=== PATIENT | male | born 1960 | race African-American/Black ===

== ENCOUNTER 2020-07-25 16:51 | Inpatient (IN) | payer OTHER ==
[~2020-07-25] VITALS: Ht 180.3 cm; Wt 92.7 kg
--- NOTE | 2020-07-25 19:30 | NUR ---
NURSE NOTES: received report from STEFANO Palma. Patient was expected to arrive at 1830. Still not here. Will await patient's arrival.
--- NOTE | 2020-07-25 20:31 | NUR ---
NURSE NOTES: received pt from paramedics. pt is alert and oriented x4, ambulatory, in no acute distress, and with complaint of mild pain in the abdomen. Will get patient situated to room and environment and reconcile belongings.
--- NOTE | 2020-07-25 20:47 | NUR ---
NURSE NOTES: patient vital signs stable. belongings reconciled. patient with no acute s/s of distress. pt oriented to room and unit. bed in lowest position and call light in reach. will call Dr Zafar for admission orders.
--- NOTE | 2020-07-25 22:06 | Consultation ---
History of Present Illness General Date patient seen: Jul 25, 2020 Present Illness HPI This is a very pleasant 59-year-old male with no known prior medical history or surgical history that is otherwise healthy presents to [facility] after being transferred from [facility] because of insurance reasons. Patient states that approximately 5 to 6 days ago he was at home doing housework where he felt he may have strained himself and noted some abdominal discomfort generalized. He thought it was because he had exerted himself significantly. The next morning Tuesday morning he woke up had a small breakfast and associated nausea and nonbloody emesis. He decided not to go to work that day. [place] better the next day and went to work subsequently continued to have abdominal discomfort decreased appetite and had been eating less. [place] distended and very uncomfortable. Has not had a bowel movement in approximately 5 to 6 days. Pain persistent. Decided it was becoming too much and went to [place] for evaluation at which time identified to have a CT scan with bowel obstruction and fluid collections nonvisualization of the appendix considerations for small bowel obstruction versus perforated appendicitis with abscess collections. Surgery called to evaluate once we arrived at [facility]. Patient seen, patient evaluated, chart reviewed. Denies fever chills. Denies current nausea or vomiting. NG tube placed at [place] with minimal output since. Minimal flatus. On examination focal right lower quadrant tenderness and generalized discomfort. States prior abdominal pain cramping generalized 6 out of 10 currently improved with pain medication. Patient History History Provided By: Patient Healthcare decision maker Resuscitation status Advanced Directive on File Past Medical/Surgical History Past Medical/Surgical History: (1) Acute perforated appendicitis (2) Appendicitis with abscess (3) Small bowel obstruction Review of Systems Review of Symptoms General ROS: no weight loss or fever Psychological ROS: no depression or mood changes, no memory loss Ophthalmic ROS: no visual changes or eye irritation ENT ROS: no nasal congestion, hearing loss, dizziness Allergy and Immunology ROS: no allergic symptoms or urticaria Hematological and Lymphatic ROS: no swollen glands, unusual bleeding or bruising Endocrine ROS: no polyuria, polydipsia, weight changes, temperature intolerance Respiratory ROS: no cough, shortness of breath, or wheezing Cardiovascular ROS: no chest pain or dyspnea on exertion Gastrointestinal ROS: ++ abdominal pain, no bright red blood in stool. Musculoskeletal ROS: no myalgias or arthralgias Neurological ROS: no TIA or stroke symptoms Dermatological ROS: no new or changing skin lesions, rashes or pruritis Physical Exam Physical Exam General appearance: alert, cooperative, no distress, appears stated age Head: Normocephalic, without obvious abnormality, atraumatic Eyes: conjunctivae/corneas clear. PERRL, EOM's intact. Fundi benign Throat: Lips, mucosa, and tongue normal. Teeth and gums normal Neck: supple, symmetrical, trachea midline, no adenopathy, thyroid: not enlarged, symmetric, no tenderness/mass/nodules, no carotid bruit and no JVD Lungs: clear to auscultation bilaterally Heart: regular rate and rhythm, S1, S2 normal, no murmur, click, rub or gallop Abdomen: soft, focal right lower quadrant tenderness and generalized discomfort no groin hernias umbilicus distended. Bowel sounds normal. No masses, no organomegaly Extremities: extremities normal, atraumatic, no cyanosis or edema Pulses: 2+ and symmetric Skin: Skin color, texture, turgor normal. No rashes or lesions Neurologic: Grossly normal Assessment/Plan Problem List: (1) Small bowel obstruction ICD Codes: K56.609 - Unspecified intestinal obstruction, unspecified as to partial versus complete obstruction SNOMED: 695971373 (2) Appendicitis with abscess ICD Codes: K35.33 - Acute appendicitis with perforation and localized peritonitis, with abscess SNOMED: 36754095 (3) Acute perforated appendicitis Assessment & Plan: 59 male abdominal pain 6 days currently afebrile hemodynamic stable no leukocytosis mild elevated renal insufficiency. Distended no bowel function for a few days decreased appetite CT identified to sick centimeter fluid collections small 2 to 3 cm right lower quadrant fluid collection no appendix visualized stranding in the mesenteric root and the right lower quadrant on examination focal right lower quadrant tenderness. Clinical picture is consistent with likely acute perforated appendicitis with abscess formation. Ileus likely subsequent to inflammatory intra-abdominal process and unlikely obstructed Will need further work-up and care planning. Other etiologies include small bowel obstruction resulting fluid collection or translocation abscess formation. Potential intra-abdominal abscess formation. N.p.o. Okay for ice chips and sips of water for patient's comfort IV fluids IV antibiotics Continue NG tube for the meantime low intermittent suction Rx as written Activity as tolerated We will discussed with radiology for consideration of interventional IR drainage of abscess Discussed with patient extended length of stay likely 5 to 7 days potentially more if necessary. Thank you for let me participate in patient's care will follow with recommendations ICD Codes: K35.32 - Acute appendicitis with perforation and localized peritonitis, without abscess SNOMED: [id number] Waldemar Vitale Jul 25, 2020 22:06
[2020-07-25] MEDS ORDERED: Morphine Sulfate 4mg/ml Inj (IV USE ONLY) IVP PRN (22:15)
[2020-07-25] MEDS ORDERED: Acetaminophen 650 MG SUPP RECTAL PRN (22:15)
[2020-07-25] MEDS ORDERED: LORazepam Inj 2mg/ml 1ml IV PRN (22:15)
[2020-07-25] MEDS ORDERED: Morphine Sulfate 2mg/ml Inj(IV/IM USE ONLY) IVP PRN ×2 (22:15→23:00)
--- NOTE | 2020-07-25 22:33 | History & Physical ---
History and Physical History & Physicial Richard Zafar MD Jul 25, 2020 22:33
--- NOTE | 2020-07-25 23:30 | History and Physical Report ---
DATE OF ADMISSION: 07/25/2020 CHIEF COMPLAINT: Abdominal pain, distention. HISTORY OF PRESENT ILLNESS: This is a 59-year-old very delightful gentleman with past medical history significant for Sampson's palsy with tinnitus, who presented to the emergency room initially to [facility], complaining about abdominal pain associated with distention about six days ago. He stated that six days ago on Tuesday, he lifted up 20 foot extension ladder which required him using his abdominal core muscle. Next day, he felt totally fine but early Tuesday morning around 3 a.m., he started complaining about generalized abdominal pain associated with tenderness in the lower abdominal area, 7/10 in intensity, started having multiple emesis. Past two days, it got progressively worsening and was not able to tolerate oral intake. Denies any chest pain or shortness of breath. Denies any dizziness. Denies any fall or head trauma. Denies any bright red blood per rectum. He felt very bloated. Shortly after initial evaluation in the emergency department, the patient was found to have small bowel obstruction, confirmed on the CAT scan and subsequently the patient was transferred to [facility] for further evaluation and therapy. PAST MEDICAL HISTORY: Significant for Sampson's palsy. PAST SURGICAL HISTORY: None. ALLERGIES: No known drug allergies. MEDICATIONS: At home is none. SOCIAL HISTORY: The patient denies any smoking, alcohol, or drugs. FAMILY HISTORY: Noncontributory. REVIEW OF SYSTEMS: Mostly as above. Denies any dysuria, frequency, or hematuria. Denies any hemoptysis or hematochezia. Denies any bright red blood per rectum. Complained about constipation. No bowel movement. Complained about nonbloody, nonbiliary emesis. Complained about lower abdominal pain associated with the distention and bloating. PHYSICAL EXAMINATION: VITAL SIGNS: On admission from the ER, blood pressure 153/93, pulse of 52, respirations 16, and temperature 97.8. GENERAL: The patient is awake and responsive, in no acute distress. HEAD AND NECK: Pupils are equal and reactive to light. Extraocular movements are intact. Neck was supple. No JVD. NG tube in the nasal cavity was noted. LUNGS: Good air entry. No wheezes or rales. HEART: S1, S2. Regular rhythm. No gallops. ABDOMEN: Soft, distended. Decreased bowel sounds. Tenderness in the lower quadrant, right greater than left. No rebound tenderness. No fluid shift. EXTREMITIES: No cyanosis, clubbing, or edema. NEUROLOGIC: Cranial nerves II through XII grossly normal. Motor is 5/5 in all extremities. Gait was not assessed due to the patient's status. RECTAL/GENITOURINARY: Refused and deferred. PSYCHIATRIC: Mood and affect is intact. LABORATORY AND DIAGNOSTIC DATA: On admission from [place], WBC of 5.8, hemoglobin of 12, hematocrit 40, platelets 266,000. Sodium 134, potassium 4.1, chloride 91, bicarb 29, BUN 23, creatinine 1.62. GFR is 54. Glucose is 284. Total bilirubin is 0.2, alkaline phosphatase is 85, AST of 15, ALT of 16. Lipase is 26. CT of the abdomen and pelvis was noted to be multiple dilated loops of the small bowel consistent with small bowel obstruction with dilated loops in the mid abdomen. Fluid collection in the right lower quadrant measured approximately 2 x 1.8 x 2.7 cm, suspicious for abscess. Additional adjacent fluid collection suspected measured approximately 6.1 x 3.9 x 4.3 cm and possible adjacent collection. Appendix not clearly identified. Ruptured appendicitis not excluded. Atelectasis in the lung base, tiny small pleural effusion. ASSESSMENT: 1. Abdominal pain, most likely secondary to the perforated appendix appendicitis. 2. Small bowel obstruction. 3. Acute kidney injury. 4. Severe dehydration and prerenal azotemia. 5. Acute perforated appendicitis. 6. Appendicitis with abscess. PLAN: 1. Admit the patient to the surgical unit. 2. We will follow up with Dr. Vitale surgical consultation. 3. Code status is Full Code. 4. DVT prophylaxis is heparin subcutaneous. 5. Start the patient on broad spectrum antibiotic with Zosyn. 6. We follow up with the laboratory in the morning, chest x-ray, and KUB. 7. Discussed case with Dr. Vitale as well as Dr. Dandre Redman for surgical as well as gastroenterology consultation. Richard Zafar M.D. DR: CONNER JOB#: [id number] CC:
[2020-07-26] VITALS: BP 151/86
[2020-07-26] MEDS ORDERED: Piperacillin/Tazobactam 3.375 GM in NS 110 ML IVPB SCH ×2
[2020-07-26] MEDS: D5 1/2NS w/KCl 20mEq 1,000 ML IV SCH ×4 (00:19→23:43)
[2020-07-26] MEDS: Piperacillin/Tazobactam 3.375 GM in NS 110 ML IVPB SCH ×4 (00:46→23:43)
[2020-07-26 01:50] LABS: APPEARANCE,URINE CLEAR; BILIRUBIN, URINE NEGATIVE (NEGATIVE); GLUCOSE, URINE (UA) 2+ (NEGATIVE); KETONES,URINE 3+ (NEGATIVE); LEUKOCYTE ESTERASE ,URINE 1+ (NEGATIVE); NITRITE,URINE NEGATIVE (NEGATIVE); PH,URINE 5 (4.5-8.0); PROTEIN,URINE 3+ (NEGATIVE); UROBILINOGEN,URINE NORMAL MG/DL (0.0-1.0)
[2020-07-26 01:58] LABS: COLOR,URINE YELLOW
[2020-07-26 04:00] VITALS: BP 138/83
--- NOTE | 2020-07-26 04:20 | NUR ---
NURSE NOTES: vital signs stable. dark brown gastric contents observed from NG tube suction. patient does not report pain when in bed. experiences pain when lower right quadrant touched or pressure applied. patient currently not in any acute distress.
[2020-07-26 06:04] LABS: HEMATOCRIT 36.1 % (42.0-52.0); MEAN CORPUSCULAR VOLUME 93 FL (80-99); PLATELET COUNT 252 K/UL (150-450); RED CELL DISTRIBUTION WIDTH 12.9 % (11.6-14.8); WHITE BLOOD COUNT 4.9 K/UL (4.8-10.8)
[2020-07-26 06:41] LABS: PHOSPHORUS 3.5 MG/DL (2.5-4.9)
[2020-07-26 06:42] LABS: ALANINE AMINOTRANSFERASE 21 U/L (12-78); ALBUMIN 2.4 G/DL (3.4-5.0); ALBUMIN/GLOBULIN RATIO 0.6 (1.0-2.7); ALKALINE PHOSPHATASE 74 U/L (46-116); AMYLASE 75 U/L (25-115); ANION GAP 3 mmol/L (5-15); ASPARTATE AMINO TRANSFERASE 16 U/L (15-37); BILIRUBIN,TOTAL 0.3 MG/DL (0.2-1.0); BLOOD UREA NITROGEN 22 mg/dL (7-18); CALCIUM 9.4 MG/DL (8.5-10.1); CARBON DIOXIDE 33 MMOL/L (21-32); CHLORIDE 97 MMOL/L (98-107); CHOLESTEROL 98 MG/DL (< 200); CREATININE 1.7 MG/DL (0.55-1.30); HDL CHOLESTEROL 11 MG/DL (40-60); POTASSIUM 4.1 MMOL/L (3.5-5.1); SODIUM 133 MMOL/L (136-145); TRIGLYCERIDES 131 MG/DL (30-150)
--- NOTE | 2020-07-26 07:20 | NUR ---
NURSE NOTES: Handoff received from Daryl RN. Patient is awake and alert, no signs of distress, breathing is even and unlabored on room air. No reports of pain or nausea at this time. NG tube on right nares noted, dark brown output, connected to low int suction. Right AC 20 g is intact, running IVF as ordered. Bed is low and locked, side rails up x2, call light is within reach.
--- NOTE | 2020-07-26 07:35 | NUR ---
NURSE HAND-OFF: Important Events on Shift: new admit, pain management, NG tube to low intermediate suction Patient Status: stable Diet: NPO Pending Orders: NA Pending Results/Labs:NA Pending MD notification:NA Latest Vital Signs: Temperature 98.7 , Pulse 93 , B/P 138 /83 , Respiratory Rate 15 , O2 SAT 95 , , O2 Flow Rate . Vital Sign Comment: stable throughout shift Latest Burgess Fall Score: 20 Fall Risk: Low Risk Safety Measures: Call light Within Reach, Bed Alarm , Side Rails Side Rails x2, Bed position Low and Locked. Fall Precautions: Patient Fall Education Report given to STEFANO Wagner.
[2020-07-26 08:00] VITALS: BP 131/73
--- NOTE | 2020-07-26 09:44 | NUR ---
NURSE NOTES: Called and left a message for Dr. Zafar regarding patient's abnormal EKG.
[2020-07-26] MEDS: Heparin 5000 units/ml inj SUBQ SCH ×2 (10:22→21:47)
[2020-07-26 12:00] VITALS: BP 147/80
--- NOTE | 2020-07-26 12:11 | General Progress Note ---
Subjective Allergies: Coded Allergies: No Known Allergies (Unverified , 07/25/20) Objective Last 24 Hour Vital Signs Date Time Temp Pulse Resp B/P (MAP) Pulse Ox O2 Delivery O2 Flow Rate FiO2 07/26/20 08:00 98.1 94 17 131/73 (92) 95 07/26/20 04:00 98.7 93 15 138/83 (101) 95 07/26/20 00:00 98.9 100 18 151/86 (107) 95 07/25/20 23:16 Room Air Intake and Output 07/25/20 07/26/20 19:00 07:00 Output Total 1075 ml Balance -1075 ml Output Urine Total 675 ml Gastric Drainage Total 400 ml # Voids 2 Laboratory Tests 07/26/20 01:34: Urine Color Yellow, Urine Appearance Clear, Urine pH 5, Urine Specific [place] 1.020, Urine Protein 3+H, Urine Glucose (UA) 2+H, Urine Ketones 3+H, Urine Blood 4+H, Urine Nitrite Negative, Urine Bilirubin Negative, Urine Urobilinogen Normal, Urine Leukocyte Esterase 1+H, Urine RBC 15-20H, Urine WBC 0-2, Urine Squamous Epithelial Cells Occasional, Urine Bacteria ModerateH, Urine Yeast OccasionalH 07/26/20 05:15: White Blood Count 4.9, Red Blood Count 3.90L, Hemoglobin 12.0L, Hematocrit 36.1L , Mean Corpuscular Volume 93, Mean Corpuscular Hemoglobin 30.7, Mean Corpuscular Hemoglobin Concent 33.2, Red Cell Distribution Width 12.9, Platelet Count 252, Mean Platelet Volume 6.0L, Neutrophils (%) (Auto) , Lymphocytes (%) (Auto) , Monocytes (%) (Auto) , Eosinophils (%) (Auto) , Basophils (%) (Auto) , Differential Total Cells Counted 100, Neutrophils % (Manual) 69, Lymphocytes % (Manual) 15L, Monocytes % (Manual) 15H, Eosinophils % (Manual) 1, Basophils % (Manual) 0, Band Neutrophils 0, Platelet Estimate Adequate, Platelet Morphology Normal, Red Blood Cell Morphology Normal, Erythrocyte Sedimentation Rate 78H, Prothrombin Time 10.7, Prothromb Time International Ratio 1.0, Activated Partial Thromboplast Time 27, Sodium Level 133L, Potassium Level 4.1, Chloride Level 97L , Carbon Dioxide Level 33H, Anion Gap 3L, Blood Urea Nitrogen 22H, Creatinine 1.7H, Estimat Glomerular Filtration Rate 50.7, Glucose Level 310H, Hemoglobin A1c 8.9H, Lactic Acid Level 1.40, Calcium Level 9.4, Phosphorus Level 3.5, Magnesium Level 1.8, Total Bilirubin 0.3, Aspartate Amino Transf (AST/SGOT) 16, Alanine Aminotransferase (ALT/SGPT) 21, Alkaline Phosphatase 74, C-Reactive Protein, Quantitative 40.3H, Pro-B-Type Natriuretic Peptide 456H, Total Protein 6.5, Albumin 2.4L, Globulin 4.1, Albumin/Globulin Ratio 0.6L, Triglycerides Level 131, Cholesterol Level 98, LDL Cholesterol 38, HDL Cholesterol 11L, Cholesterol/HDL Ratio 8.9H, Amylase Level 75, Lipase 162 Height (Feet): 5 Height (Inches): 11.00 Weight (Pounds): 201 Assessment/Plan Assessment/Plan: Assessment - Perforated appy - multiple abd abscesses - Ileus - Azotemia - DM Recommendations - broad spectrum abx - agree with Zosyn - NPO - IVF, follow Cr and lytes - NGT - SQ heparin - follow KUB - surgical f/u Thank you Dandre Girard MD Jul 26, 2020 12:11
--- NOTE | 2020-07-26 13:01 | Surgery Progress Note ---
Surgery Progress Note Subjective Additional Comments no acute events comfortable stable labs noted exam unchanged ng minimal output Objective Last 24 Hour Vital Signs Date Time Temp Pulse Resp B/P (MAP) Pulse Ox O2 Delivery O2 Flow Rate FiO2 07/26/20 08:00 98.1 94 17 131/73 (92) 95 07/26/20 04:00 98.7 93 15 138/83 (101) 95 07/26/20 00:00 98.9 100 18 151/86 (107) 95 07/25/20 23:16 Room Air I&O Intake and Output 07/25/20 07/26/20 19:00 07:00 Output Total 1075 ml Balance -1075 ml Output Urine Total 675 ml Gastric Drainage Total 400 ml # Voids 2 Cardiovascular: RSR Respiratory: decreased breath sounds Abdomen: soft, non-tender, present bowel sounds Extremities: no tenderness, no cyanosis Laboratory Tests Test 07/26/20 01:34 07/26/20 05:15 Urine Color Yellow Urine Appearance Clear Urine pH 5 (4.5-8.0) Urine Specific [place] 1.020 (1.005-1.035) Urine Protein 3+ (NEGATIVE) H Urine Glucose (UA) 2+ (NEGATIVE) H Urine Ketones 3+ (NEGATIVE) H Urine Blood 4+ (NEGATIVE) H Urine Nitrite Negative (NEGATIVE) Urine Bilirubin Negative (NEGATIVE) Urine Urobilinogen Normal MG/DL (0.0-1.0) Urine Leukocyte Esterase 1+ (NEGATIVE) H Urine RBC 15-20 /HPF (0 - 0) H Urine WBC 0-2 /HPF (0 - 0) Urine Squamous Epithelial Cells Occasional /LPF Urine Bacteria Moderate /HPF (NONE) H Urine Yeast Occasional /HPF (NONE) H White Blood Count 4.9 K/UL (4.8-10.8) Red Blood Count 3.90 M/UL (4.70-6.10) L Hemoglobin 12.0 G/DL (14.2-18.0) L Hematocrit 36.1 % (42.0-52.0) L Mean Corpuscular Volume 93 FL (80-99) Mean Corpuscular Hemoglobin 30.7 PG (27.0-31.0) Mean Corpuscular Hemoglobin Concent 33.2 G/DL (32.0-36.0) Red Cell Distribution Width 12.9 % (11.6-14.8) Platelet Count 252 K/UL (150-450) Mean Platelet Volume 6.0 FL (6.5-10.1) L Neutrophils (%) (Auto) % (45.0-75.0) Lymphocytes (%) (Auto) % (20.0-45.0) Monocytes (%) (Auto) % (1.0-10.0) Eosinophils (%) (Auto) % (0.0-3.0) Basophils (%) (Auto) % (0.0-2.0) Differential Total Cells Counted 100 Neutrophils % (Manual) 69 % (45-75) Lymphocytes % (Manual) 15 % (20-45) L Monocytes % (Manual) 15 % (1-10) H Eosinophils % (Manual) 1 % (0-3) Basophils % (Manual) 0 % (0-2) Band Neutrophils 0 % (0-8) Platelet Estimate Adequate Platelet Morphology Normal Red Blood Cell Morphology Normal Erythrocyte Sedimentation Rate 78 MM/HR (0-20) H Prothrombin Time 10.7 SEC (9.30-11.50) Prothromb Time International Ratio 1.0 (0.9-1.1) Activated Partial Thromboplast Time 27 SEC (23-33) Sodium Level 133 MMOL/L (136-145) L Potassium Level 4.1 MMOL/L (3.5-5.1) Chloride Level 97 MMOL/L (98-107) L Carbon Dioxide Level 33 MMOL/L (21-32) H Anion Gap 3 mmol/L (5-15) L Blood Urea Nitrogen 22 mg/dL (7-18) H Creatinine 1.7 MG/DL (0.55-1.30) H Estimat Glomerular Filtration Rate 50.7 mL/min (>60) Glucose Level 310 MG/DL (74-106) H Hemoglobin A1c 8.9 % (4.3-6.0) H Lactic Acid Level 1.40 mmol/L (0.4-2.0) Calcium Level 9.4 MG/DL (8.5-10.1) Phosphorus Level 3.5 MG/DL (2.5-4.9) Magnesium Level 1.8 MG/DL (1.8-2.4) Total Bilirubin 0.3 MG/DL (0.2-1.0) Aspartate Amino Transf (AST/SGOT) 16 U/L (15-37) Alanine Aminotransferase (ALT/SGPT) 21 U/L (12-78) Alkaline Phosphatase 74 U/L (46-116) C-Reactive Protein, Quantitative 40.3 mg/dL (0.00-0.90) H Pro-B-Type Natriuretic Peptide 456 pg/mL (0-125) H Total Protein 6.5 G/DL (6.4-8.2) Albumin 2.4 G/DL (3.4-5.0) L Globulin 4.1 g/dL Albumin/Globulin Ratio 0.6 (1.0-2.7) L Triglycerides Level 131 MG/DL (30-150) Cholesterol Level 98 MG/DL (< 200) LDL Cholesterol 38 mg/dL (<100) HDL Cholesterol 11 MG/DL (40-60) L Cholesterol/HDL Ratio 8.9 (3.3-4.4) H Amylase Level 75 U/L (25-115) Lipase 162 U/L (73-393) Plan Problems: (1) Small bowel obstruction (2) Appendicitis with abscess (3) Acute perforated appendicitis Assessment & Plan: 59 male abdominal pain 6 days currently afebrile hemodynamic stable no leukocytosis mild elevated renal insufficiency. Distended no bowel function for a few days decreased appetite CT identified to sick centimeter fluid collections small 2 to 3 cm right lower quadrant fluid collection no appendix visualized stranding in the mesenteric root and the right lower quadrant on examination focal right lower quadrant tenderness. Clinical picture is consistent with likely acute perforated appendicitis with abscess formation. Ileus likely subsequent to inflammatory intra-abdominal process and unlikely obstructed Will need further work-up and care planning. Other etiologies include small bowel obstruction resulting fluid collection or translocation abscess formation. Potential intra-abdominal abscess formation. N.p.o. Okay for ice chips and sips of water for patient's comfort IV fluids IV antibiotics Continue NG tube for the meantime low intermittent suction Rx as written Activity as tolerated We will discussed with radiology for consideration of interventional IR drainage of abscess Discussed with patient extended length of stay likely 5 to 7 days potentially more if necessary. Thank you for let me participate in patient's care will follow with recommendations Waldemar Vitale Jul 26, 2020 13:01
--- NOTE | 2020-07-26 13:35 | NUR ---
CASE MANAGEMENT:INITIAL REVIEW 59 YR OLD MALE TRANSFERRED FROM [employer] D/T INSURANCE CC;ABD PAIN SI;[place]. DEHYDRATION. SMALL BOWEL OBSTRUCTION. AC PERFORATED APPENDICITIS. 98.9 100 18 151/86 95% ON RA H/H 12.0/36.1 NA 133 CO2 33 BUN 22 CR 1.7 BG 310 CRP 40.3 BNP 456 ALB 2.4 UA+ PROTEIN, GLUCOSE, KETONES, BLOOD, LEUKOCYTE ESTERASE, BACTERIA, YEAST IS;MORPHINE IV ZOFRAN IV ZOSYN IV ADMITTED TO MED SURG MED SURG STATUS
[2020-07-26 16:00] VITALS: BP 139/77
[2020-07-26] MEDS ORDERED: Tubing IV Secondary IV ONE (17:28)
[2020-07-26] MEDS ORDERED: NS 275ml ONE (17:28)
[2020-07-26] MEDS: NovoLOG Insulin Flexpen SUBQ SCH ×2 (17:53→23:43)
--- NOTE | 2020-07-26 18:01 | Internal Med Progress Note ---
Subjective Date of Service: Jul 26, 2020 Physician Name Edson Ramirez Attending Physician Richard Zafar MD Current Medications Medications (Trade) Dose Ordered Sig/Chloe Route PRN Reason Start Time Stop Time Status Last Admin Dose Admin Acetaminophen (Tylenol) 650 mg Q4H PRN RECTAL Temp >100.5 07/25/20 22:15 08/24/20 22:14 Acetaminophen (Tylenol) 650 mg Q6H PRN ORAL for fever and mild pain 1-3 07/25/20 23:00 08/24/20 22:59 Bisacodyl (Dulcolax) 10 mg HSPRN PRN RECTAL Constipation 07/25/20 22:15 10/23/20 22:14 Dextrose (Dextrose 50%) 25 ml Q30M PRN IV Hypoglycemia 07/26/20 14:30 10/24/20 14:29 Dextrose (Dextrose 50%) 25 ml Q30M PRN IV Hypoglycemia 07/25/20 22:15 10/23/20 22:14 Dextrose (Dextrose 50%) 50 ml Q30M PRN IV Hypoglycemia 07/26/20 14:30 10/24/20 14:29 Dextrose (Dextrose 50%) 50 ml Q30M PRN IV Hypoglycemia 07/25/20 22:15 10/23/20 22:14 Dextrose/ Electrolytes 1,000 ml @ 125 mls/hr Q8H IV 07/26/20 00:00 08/25/20 00:00 07/26/20 15:33 Famotidine (Pepcid I.v.) 20 mg Q12HR IVP 07/26/20 09:00 08/25/20 08:59 07/26/20 08:13 Heparin Sodium (Porcine) (Heparin 5000 units/ml) 5,000 units EVERY 12 HOURS SUBQ 07/26/20 09:30 09/09/20 09:29 07/26/20 10:22 Insulin Aspart (NovoLOG) EVERY 6 HOURS SUBQ 07/26/20 18:00 10/24/20 17:59 07/26/20 17:53 Lorazepam (Ativan 2mg/ml 1ml) 0.5 mg Q4H PRN IV For Anxiety 07/25/20 22:15 08/01/20 22:14 Morphine Sulfate (Morphine Sulfate) 2 mg Q4H PRN IVP moderate to severe pain 4-10 07/25/20 23:00 08/01/20 22:59 Morphine Sulfate (Morphine Sulfate) 4 mg Q4H PRN IVP Severe Pain (Pain Scale 7-10) 07/25/20 22:15 08/01/20 22:14 07/26/20 17:40 Ondansetron HCl (Zofran) 4 mg Q4H PRN IVP Nausea & Vomiting 07/25/20 23:00 08/24/20 22:59 Piperacillin Sod/ Tazobactam Sod 3.375 gm/Sodium Chloride 110 ml @ 27.5 mls/hr Q8H IVPB 07/26/20 00:00 08/02/20 00:00 07/26/20 15:34 Allergies: Coded Allergies: No Known Allergies (Unverified , 07/25/20) ROS Limited/Unobtainable: No Constitutional: Reports: no symptoms HEENT: Reports: no symptoms Cardiovascular: Reports: no symptoms Respiratory: Reports: no symptoms Gastrointestinal/Abdominal: Reports: abdomen distended, abdominal pain Genitourinary: Reports: no symptoms Neurologic/Psychiatric: Reports: no symptoms Subjective 59 YO M admitted with nausea, vomiting, abdominal distention and pain. Now small bowel obstruction. Cover for Int Jeffrey-DR Zafar Objective Last Vital Signs Date Time Temp Pulse Resp B/P (MAP) Pulse Ox O2 Delivery O2 Flow Rate FiO2 07/26/20 12:00 98.6 94 18 147/80 (102) 98 07/26/20 09:00 Room Air Laboratory Tests Test 07/26/20 01:34 07/26/20 05:15 07/26/20 17:48 Urine Color Yellow Urine Appearance Clear Urine pH 5 (4.5-8.0) Urine Specific [place] 1.020 (1.005-1.035) Urine Protein 3+ (NEGATIVE) H Urine Glucose (UA) 2+ (NEGATIVE) H Urine Ketones 3+ (NEGATIVE) H Urine Blood 4+ (NEGATIVE) H Urine Nitrite Negative (NEGATIVE) Urine Bilirubin Negative (NEGATIVE) Urine Urobilinogen Normal MG/DL (0.0-1.0) Urine Leukocyte Esterase 1+ (NEGATIVE) H Urine RBC 15-20 /HPF (0 - 0) H Urine WBC 0-2 /HPF (0 - 0) Urine Squamous Epithelial Cells Occasional /LPF Urine Bacteria Moderate /HPF (NONE) H Urine Yeast Occasional /HPF (NONE) H White Blood Count 4.9 K/UL (4.8-10.8) Red Blood Count 3.90 M/UL (4.70-6.10) L Hemoglobin 12.0 G/DL (14.2-18.0) L Hematocrit 36.1 % (42.0-52.0) L Mean Corpuscular Volume 93 FL (80-99) Mean Corpuscular Hemoglobin 30.7 PG (27.0-31.0) Mean Corpuscular Hemoglobin Concent 33.2 G/DL (32.0-36.0) Red Cell Distribution Width 12.9 % (11.6-14.8) Platelet Count 252 K/UL (150-450) Mean Platelet Volume 6.0 FL (6.5-10.1) L Neutrophils (%) (Auto) % (45.0-75.0) Lymphocytes (%) (Auto) % (20.0-45.0) Monocytes (%) (Auto) % (1.0-10.0) Eosinophils (%) (Auto) % (0.0-3.0) Basophils (%) (Auto) % (0.0-2.0) Differential Total Cells Counted 100 Neutrophils % (Manual) 69 % (45-75) Lymphocytes % (Manual) 15 % (20-45) L Monocytes % (Manual) 15 % (1-10) H Eosinophils % (Manual) 1 % (0-3) Basophils % (Manual) 0 % (0-2) Band Neutrophils 0 % (0-8) Platelet Estimate Adequate Platelet Morphology Normal Red Blood Cell Morphology Normal Erythrocyte Sedimentation Rate 78 MM/HR (0-20) H Prothrombin Time 10.7 SEC (9.30-11.50) Prothromb Time International Ratio 1.0 (0.9-1.1) Activated Partial Thromboplast Time 27 SEC (23-33) Sodium Level 133 MMOL/L (136-145) L Potassium Level 4.1 MMOL/L (3.5-5.1) Chloride Level 97 MMOL/L (98-107) L Carbon Dioxide Level 33 MMOL/L (21-32) H Anion Gap 3 mmol/L (5-15) L Blood Urea Nitrogen 22 mg/dL (7-18) H Creatinine 1.7 MG/DL (0.55-1.30) H Estimat Glomerular Filtration Rate 50.7 mL/min (>60) Glucose Level 310 MG/DL (74-106) H Hemoglobin A1c 8.9 % (4.3-6.0) H Lactic Acid Level 1.40 mmol/L (0.4-2.0) Calcium Level 9.4 MG/DL (8.5-10.1) Phosphorus Level 3.5 MG/DL (2.5-4.9) Magnesium Level 1.8 MG/DL (1.8-2.4) Total Bilirubin 0.3 MG/DL (0.2-1.0) Aspartate Amino Transf (AST/SGOT) 16 U/L (15-37) Alanine Aminotransferase (ALT/SGPT) 21 U/L (12-78) Alkaline Phosphatase 74 U/L (46-116) C-Reactive Protein, Quantitative 40.3 mg/dL (0.00-0.90) H Pro-B-Type Natriuretic Peptide 456 pg/mL (0-125) H Total Protein 6.5 G/DL (6.4-8.2) Albumin 2.4 G/DL (3.4-5.0) L Globulin 4.1 g/dL Albumin/Globulin Ratio 0.6 (1.0-2.7) L Triglycerides Level 131 MG/DL (30-150) Cholesterol Level 98 MG/DL (< 200) LDL Cholesterol 38 mg/dL (<100) HDL Cholesterol 11 MG/DL (40-60) L Cholesterol/HDL Ratio 8.9 (3.3-4.4) H Amylase Level 75 U/L (25-115) Lipase 162 U/L (73-393) POC Whole Blood Glucose 302 MG/DL (74-106) H Intake and Output 07/25/20 07/26/20 19:00 07:00 Output Total 1075 ml Balance -1075 ml Output Urine Total 675 ml Gastric Drainage Total 400 ml # Voids 2 Objective PHYSICAL EXAMINATION: GENERAL: The patient is awake and responsive, in no acute distress. HEAD AND NECK: Pupils are equal and reactive to light. Extraocular movements are intact. Neck was supple. No JVD. NG tube in the nasal cavity was noted. LUNGS: Good air entry. No wheezes or rales. HEART: S1, S2. Regular rhythm. No gallops. ABDOMEN: Soft, distended. Decreased bowel sounds. Tenderness in the lower quadrant, right greater than left. No rebound tenderness. No fluid shift. EXTREMITIES: No cyanosis, clubbing, or edema. NEUROLOGIC: Cranial nerves II through XII grossly normal. Motor is 5/5 in all extremities. Gait was not assessed due to the patient's status. RECTAL/GENITOURINARY: Refused and deferred. PSYCHIATRIC: Mood and affect is intact. Assessment/Plan Assessment/Plan ASSESSMENT: 1. Abdominal pain, most likely secondary to the perforated appendix appendicitis. 2. Small bowel obstruction. 3. Acute kidney injury. 4. Severe dehydration and prerenal azotemia. 5. Acute perforated appendicitis. 6. Appendicitis with abscess. PLAN: 1. Admit the patient to the surgical unit. 2. Dr. Vitale = surgical consultation. 3. Code status is Full Code. 4. DVT prophylaxis is heparin subcutaneous. 5. antibiotic = Zosyn. 6. Dr. Dandre Redman=gastroenterology consultation. Edson Ramirez MD Jul 26, 2020 18:01
--- NOTE | 2020-07-26 19:30 | NUR ---
NURSE HAND-OFF: Important Events on Shift:[started q6 accuchecks and insulin. 2d echo] Patient Status: [stable] Diet: NPO Pending Orders: Pending Results/Labs: Pending MD notification: Latest Vital Signs: Temperature 98.6 , Pulse 90 , B/P 139 /77 , Respiratory Rate 18 , O2 SAT 99 , Room Air, O2 Flow Rate . Vital Sign Comment: Latest Burgess Fall Score: 20 Fall Risk: Low Risk Safety Measures: Call light Within Reach, Bed Alarm Zone 1, Side Rails Side Rails x2, Bed position Low and Locked. Fall Precautions: Patient Fall Education Report given to Joan RN.
--- NOTE | 2020-07-26 19:30 | NUR ---
NURSE NOTES: Receive a report from STEFANO Wagner. Round is done. Pt is awake and alert. No acute distress noted. Pain relived. On NG tube on right nare @ 60cm inserted with low intermittent suction in greenish drainage. Fixing tape for NG-tube. No nausea noted. Noted abdominal distended and hyperactivity on BS but pt says that it got decreased than before. On NPO with fluid hydration. Call light within reach. Will continue to monitor.
[2020-07-26 20:00] VITALS: BP 143/78
--- NOTE | 2020-07-26 20:45 | Consultation ---
DATE OF CONSULTATION: 07/26/2020 GASTROLOGY CONSULTATION CHIEF COMPLAINT: I was asked to see this patient by Dr. Richard Zafar for evaluation of abdominal pain and appendicitis. HISTORY OF PRESENT ILLNESS: The patient is a 59-year-old man who was in his usual state of health until about 3 to 4 days prior to admission when he started noticing abdominal pain, which progressively worsened. He also had some bouts of nausea and vomiting. He came to an outside emergency room where a CT scan showed an abscess at 3 different locations in the lower abdomen. The largest one was measuring about 6 cm. There was also evidence of bowel obstruction vs ileus. The patient was, therefore, transferred to [facility], where he was admitted. He has a nasogastric tube for decompression. His main complaint is diffuse abdominal pain, which is worse in the lower abdomen. PAST MEDICAL HISTORY: Notable for history of Sampson palsy. FAMILY HISTORY: Positive for diabetes. SOCIAL HISTORY: The patient does not smoke or drink alcohol. The patient is single. 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 REVIEW OF SYSTEMS: Otherwise negative. PHYSICAL EXAMINATION: GENERAL: A well-developed, well-nourished man, in his room. HEENT: Normocephalic and atraumatic. NECK: Supple. CHEST: Clear to auscultation. CARDIOVASCULAR: Exam revealed a regular rate. ABDOMEN: Distended and tender to palpation, especially in the right lower quadrant with some guarding, but no rebound. EXTREMITIES: No edema. LABORATORY DATA: Noted. Imaging studies from the outside facility were noted. ASSESSMENT: This patient presents with acute abdominal pain with abdominal distention and abscess formation. This is typical for perforated appendicitis, and I agree with the surgeon's assessment that the distended small bowel is likely ileus and not a true bowel obstruction. Nonetheless, bowel rest and nasogastric tube will be worthwhile and I will defer surgical management to the surgical processor. Broad-spectrum antibiotic such as Zosyn will be appropriate. Deep vein thrombosis prophylaxis should be given. The patient's abdominal exam should be followed closely. RECOMMENDATIONS: Per above discussion and per orders written in the chart. Thank you for asking me to participate in the care of this patient. Dandre Redman M.D. DR: DIANDRA JOB#: [id number] CC: YENY
[2020-07-27] VITALS: BP 148/85
[2020-07-27 04:00] VITALS: BP 143/82
[2020-07-27] MEDS: NovoLOG Insulin Flexpen SUBQ SCH ×3 (06:11→17:48)
--- NOTE | 2020-07-27 07:20 | NUR ---
NURSE HAND-OFF: Important Events on Shift: RLQ pain-given morphine 2mg IVS one time. No nausea. On NGT with greenish drainage. Patient Status: stable Diet: npo except ice chips 12hr NG-tube drainage: 150ml greenish Pending Orders: [] Pending Results/Labs:[] Pending MD notification:[] Latest Vital Signs: Temperature 99.5 , Pulse 90 , B/P 143 /82 , Respiratory Rate 18 , O2 SAT 97 , Room Air, O2 Flow Rate . Vital Sign Comment: [] Latest Burgess Fall Score: 35 Fall Risk: Medium Risk Safety Measures: Call light Within Reach, Bed Alarm Zone 1, Side Rails Side Rails x2, Bed position Low and Locked. Fall Precautions: Door Sign Patient Fall Education Report given to STEFANO Palma. Round is done. pt is awake and alert. No acute distress noted. Pt says passing gas several times but no BM. Will continue to monitor.
[2020-07-27 07:21] LABS: BASOPHILS % (AUTO) 0.9 % (0.0-2.0); EOSINOPHILS % (AUTO) 2.5 % (0.0-3.0); HEMATOCRIT 37.2 % (42.0-52.0); HEMOGLOBIN 12.2 G/DL (14.2-18.0); LYMPHOCYTES % (AUTO) 10.1 % (20.0-45.0); MEAN CORPUSCULAR VOLUME 93 FL (80-99); MONOCYTES % (AUTO) 18.3 % (1.0-10.0); NEUTROPHILS % (AUTO) 68.2 % (45.0-75.0); PLATELET COUNT 281 K/UL (150-450); RED BLOOD COUNT 3.99 M/UL (4.70-6.10); RED CELL DISTRIBUTION WIDTH 13.2 % (11.6-14.8); WHITE BLOOD COUNT 7.3 K/UL (4.8-10.8)
[2020-07-27 07:33] LABS: CALCIUM 8.8 MG/DL (8.5-10.1); CREATININE 1.6 MG/DL (0.55-1.30); POTASSIUM 4.8 MMOL/L (3.5-5.1)
--- NOTE | 2020-07-27 07:50 | NUR ---
NURSE NOTES: Patient is in bed awake and able to verbalize needs. Stable. Denies pain or SOB. NGT to low intermittent suction as ordered. Patient stated that he is passing gas and feels better. Patient instructed to use call light for assistance, verbalized understanding. Patient is in bed in locked and lowest position with call light within reach. All needs met at this time. Will continue to monitor.
[2020-07-27 08:00] VITALS: BP 139/68
[2020-07-27] MEDS: Piperacillin/Tazobactam 3.375 GM in NS 110 ML IVPB SCH ×2 (08:07→16:15)
[2020-07-27] MEDS: D5 1/2NS w/KCl 20mEq 1,000 ML IV SCH (08:07)
[2020-07-27] MEDS: Heparin 5000 units/ml inj SUBQ SCH ×2 (08:12→20:34)
[2020-07-27] MEDS ORDERED: LISINOPRIL40 MG ORAL (10:09)
[2020-07-27] MEDS ORDERED: AMLODIPINE BESY10 MG ORAL (10:09)
[2020-07-27] MEDS ORDERED: TRESIBA FL100 UNIT/1 SQ (11:29)
[2020-07-27 12:00] VITALS: BP 133/87
--- NOTE | 2020-07-27 12:36 | Surgery Progress Note ---
Surgery Progress Note Subjective Symptoms: improved, voiding well, passing flatus, BM, pain decreased Objective Last 24 Hour Vital Signs Date Time Temp Pulse Resp B/P (MAP) Pulse Ox O2 Delivery O2 Flow Rate FiO2 07/27/20 09:00 Room Air 07/27/20 08:00 98.2 87 18 139/68 (91) 97 07/27/20 04:00 99.5 90 18 143/82 (102) 97 07/27/20 00:00 99.5 93 18 148/85 (106) 96 07/26/20 21:00 Room Air 07/26/20 20:00 99.1 88 18 143/78 (99) 94 07/26/20 18:10 98.6 07/26/20 16:00 98.4 90 18 139/77 (97) 99 I&O Intake and Output 07/26/20 07/27/20 19:00 07:00 Intake Total 1500 ml Output Total 800 ml 1000 ml Balance -800 ml 500 ml Intake IV Total 1500 ml Output Urine Total 600 ml 850 ml Gastric Drainage Total 200 ml 150 ml # Voids 3 3 # Bowel Movements 1 Cardiovascular: RSR Respiratory: clear Abdomen: soft, distended, non-tender - decreased, present bowel sounds Extremities: no edema, no tenderness, no cyanosis Laboratory Tests Test 07/26/20 17:48 07/26/20 23:39 07/27/20 05:15 07/27/20 05:21 POC Whole Blood Glucose 302 MG/DL (74-106) H 268 MG/DL (74-106) H 310 MG/DL (74-106) H White Blood Count 7.3 K/UL (4.8-10.8) Red Blood Count 3.99 M/UL (4.70-6.10) L Hemoglobin 12.2 G/DL (14.2-18.0) L Hematocrit 37.2 % (42.0-52.0) L Mean Corpuscular Volume 93 FL (80-99) Mean Corpuscular Hemoglobin 30.6 PG (27.0-31.0) Mean Corpuscular Hemoglobin Concent 32.8 G/DL (32.0-36.0) Red Cell Distribution Width 13.2 % (11.6-14.8) Platelet Count 281 K/UL (150-450) Mean Platelet Volume 5.2 FL (6.5-10.1) L Neutrophils (%) (Auto) 68.2 % (45.0-75.0) Lymphocytes (%) (Auto) 10.1 % (20.0-45.0) L Monocytes (%) (Auto) 18.3 % (1.0-10.0) H Eosinophils (%) (Auto) 2.5 % (0.0-3.0) Basophils (%) (Auto) 0.9 % (0.0-2.0) Sodium Level 134 MMOL/L (136-145) L Potassium Level 4.8 MMOL/L (3.5-5.1) Chloride Level 100 MMOL/L (98-107) Carbon Dioxide Level 29 MMOL/L (21-32) Anion Gap 5 mmol/L (5-15) Blood Urea Nitrogen 14 mg/dL (7-18) Creatinine 1.6 MG/DL (0.55-1.30) H Estimat Glomerular Filtration Rate 54.3 mL/min (>60) Glucose Level 304 MG/DL (74-106) H Calcium Level 8.8 MG/DL (8.5-10.1) Test 07/27/20 12:05 POC Whole Blood Glucose Pending Plan Problems: (1) Small bowel obstruction (2) Appendicitis with abscess (3) Acute perforated appendicitis Assessment & Plan: 59 male abdominal pain 6 days currently afebrile hemodynamic stable no leukocytosis mild elevated renal insufficiency. Distended no bowel function for a few days decreased appetite CT identified to sick centimeter fluid collections small 2 to 3 cm right lower quadrant fluid collection no appendix visualized stranding in the mesenteric root and the right lower quadrant on examination focal right lower quadrant tenderness. Clinical picture is consistent with likely acute perforated appendicitis with abscess formation. Ileus likely subsequent to inflammatory intra-abdominal process and unlikely obstructed Will need further work-up and care planning. Other etiologies include small bowel obstruction resulting fluid collection or translocation abscess formation. Potential intra-abdominal abscess formation. N.p.o. Okay for ice chips and sips of water for patient's comfort IV fluids IV antibiotics Continue NG tube for the meantime low intermittent suction Rx as written Activity as tolerated We will discussed with radiology for consideration of interventional IR drainage of abscess Discussed with patient extended length of stay likely 5 to 7 days potentially more if necessary. Thank you for let me participate in patient's care will follow with recommendations improving +bowel function ng output decreased abd exam improved labs noted Waldemar Vitale Jul 27, 2020 12:36
--- NOTE | 2020-07-27 13:15 | Consultation ---
Consult Note Consult Note Asked to evaluate at the request of Dr. Zafar for elevated serum creatinine Day 2 of hospitalization here at [facility] Patient interviewed and examined in room 302. Discussed with STEFANO Palma. HISTORY OF PRESENT ILLNESS: This is a 59-year-old past medical history significant for Sampson's palsy with tinnitus, who presented to the emergency room initially to [facility], complaining about abdominal pain associated with distention about six days ago. He stated that six days ago on Tuesday, he lifted up 20 foot extension ladder which required him using his abdominal core muscle. Next day, he felt totally fine but early Tuesday morning around 3 a.m., he started complaining about generalized abdominal pain associated with tenderness in the lower abdominal area, 7/10 in intensity, started having multiple emesis. Past two days, it got progressively worsening and was not able to tolerate oral intake. Denies any chest pain or shortness of breath. Denies any dizziness. Denies any fall or head trauma. Denies any bright red blood per rectum. He felt very bloated. Shortly after initial evaluation in the emergency department, the patient was found to have small bowel obstruction, confirmed on the CAT scan and subsequently the patient was transferred to [facility] for further evaluation and therapy. PHYSICAL EXAMINATION: VITAL SIGNS: On admission from the ER, blood pressure 153/93, pulse of 52, respirations 16, and temperature 97.8. GENERAL: The patient is awake and responsive, in no acute distress. HEAD AND NECK: Pupils are equal and reactive to light. Extraocular movements are intact. Neck was supple. No JVD. NG tube in the nasal cavity was noted. LUNGS: Good air entry. No wheezes or rales. HEART: S1, S2. Regular rhythm. No gallops. ABDOMEN: Soft, distended. Decreased bowel sounds. Tenderness in the lower quadrant, right greater than left. No rebound tenderness. No fluid shift. EXTREMITIES: No cyanosis, clubbing, or edema. NEUROLOGIC: Cranial nerves II through XII grossly normal. Motor is 5/5 in all extremities. Gait was not assessed due to the patient's status. RECTAL/GENITOURINARY: Refused and deferred. PSYCHIATRIC: Mood and affect is intact. LABORATORY AND DIAGNOSTIC DATA: On admission from [facility], WBC of 5.8, hemoglobin of 12, hematocrit 40, platelets 266,000. Sodium 134, potassium 4.1, chloride 91, bicarb 29, BUN 23, creatinine 1.62. GFR is 54. Glucose is 284. Total bilirubin is 0.2, alkaline phosphatase is 85, AST of 15, ALT of 16. Lipase is 26. CT of the abdomen and pelvis was noted to be multiple dilated loops of the small bowel consistent with small bowel obstruction with dilated loops in the mid abdomen. Fluid collection in the right lower quadrant measured approximately 2 x 1.8 x 2.7 cm, suspicious for abscess. Additional adjacent fluid collection suspected measured approximately 6.1 x 3.9 x 4.3 cm and possible adjacent collection. Appendix not clearly identified. Ruptured appendicitis not excluded. Atelectasis in the lung base, tiny small pleural effusion. . Assessment/Plan Impression: Renal failure with serum creatinine of 1.7 on admission today 1.6 GI pathology: Acute perforated appendicitis, appendicitis with abscess Possible small bowel obstruction Diabetes mellitus Hyponatremia Sugg: N.p.o. NG tube to suction Avoid nephrotoxic's, monitor renal parameters and electrolytes Okay for ice chips and sips of water for patient's comfort IV fluids, change IV to isotonic solution IV antibiotics Rico Patel MD Jul 27, 2020 13:15
[2020-07-27] MEDS: D5NS 1,000 ML IV SCH (14:17)
[2020-07-27 16:00] VITALS: BP_SYST 113; BP_SYST 140; BP_DIAS 68; BP_DIAS 84
--- NOTE | 2020-07-27 16:35 | Internal Med Progress Note ---
Subjective Date of Service: Jul 27, 2020 Physician Name Edson Ramirez Attending Physician Richard Zafar MD Current Medications Medications (Trade) Dose Ordered Sig/Chloe Route PRN Reason Start Time Stop Time Status Last Admin Dose Admin Acetaminophen (Tylenol) 650 mg Q4H PRN RECTAL TEMP and pain 07/25/20 22:15 08/24/20 22:14 07/27/20 12:07 Acetaminophen (Tylenol) 650 mg Q6H PRN ORAL for fever and mild pain 1-3 07/25/20 23:00 08/24/20 22:59 Bisacodyl (Dulcolax) 10 mg HSPRN PRN RECTAL Constipation 07/25/20 22:15 10/23/20 22:14 Dextrose (Dextrose 50%) 25 ml Q30M PRN IV Hypoglycemia 07/26/20 14:30 10/24/20 14:29 Dextrose (Dextrose 50%) 50 ml Q30M PRN IV Hypoglycemia 07/26/20 14:30 10/24/20 14:29 Dextrose/Sodium Chloride 1,000 ml @ 100 mls/hr Q10H IV 07/27/20 13:30 08/26/20 13:29 07/27/20 14:17 Famotidine (Pepcid I.v.) 20 mg Q12HR IVP 07/26/20 09:00 08/25/20 08:59 07/27/20 08:07 Heparin Sodium (Porcine) (Heparin 5000 units/ml) 5,000 units EVERY 12 HOURS SUBQ 07/26/20 09:30 09/09/20 09:29 07/27/20 08:12 Insulin Aspart (NovoLOG) EVERY 6 HOURS SUBQ 07/26/20 18:00 10/24/20 17:59 07/27/20 12:09 Lorazepam (Ativan 2mg/ml 1ml) 0.5 mg Q4H PRN IV For Anxiety 07/25/20 22:15 08/01/20 22:14 Morphine Sulfate (Morphine Sulfate) 2 mg Q4H PRN IVP moderate to severe pain 4-10 07/25/20 23:00 08/01/20 22:59 07/27/20 04:08 Morphine Sulfate (Morphine Sulfate) 4 mg Q4H PRN IVP Severe Pain (Pain Scale 7-10) 07/25/20 22:15 08/01/20 22:14 07/26/20 17:40 Ondansetron HCl (Zofran) 4 mg Q4H PRN IVP Nausea & Vomiting 07/25/20 23:00 08/24/20 22:59 Piperacillin Sod/ Tazobactam Sod 3.375 gm/Sodium Chloride 110 ml @ 27.5 mls/hr Q8H IVPB 07/26/20 00:00 08/02/20 00:00 07/27/20 16:15 Allergies: Coded Allergies: No Known Allergies (Unverified , 07/25/20) ROS Limited/Unobtainable: No Constitutional: Reports: no symptoms HEENT: Reports: no symptoms Cardiovascular: Reports: no symptoms Respiratory: Reports: no symptoms Gastrointestinal/Abdominal: Reports: no symptoms Genitourinary: Reports: no symptoms Neurologic/Psychiatric: Reports: no symptoms Subjective 59 YO M admitted with nausea, vomiting, abdominal distention and pain. Now small bowel obstruction. Cover for Int Med-DR Zafar Objective Last Vital Signs Date Time Temp Pulse Resp B/P (MAP) Pulse Ox O2 Delivery O2 Flow Rate FiO2 07/27/20 12:00 97.8 94 18 133/87 (102) 97 07/27/20 09:00 Room Air Laboratory Tests Test 07/26/20 17:48 07/26/20 23:39 07/27/20 05:15 07/27/20 05:21 POC Whole Blood Glucose 302 MG/DL (74-106) H 268 MG/DL (74-106) H 310 MG/DL (74-106) H White Blood Count 7.3 K/UL (4.8-10.8) Red Blood Count 3.99 M/UL (4.70-6.10) L Hemoglobin 12.2 G/DL (14.2-18.0) L Hematocrit 37.2 % (42.0-52.0) L Mean Corpuscular Volume 93 FL (80-99) Mean Corpuscular Hemoglobin 30.6 PG (27.0-31.0) Mean Corpuscular Hemoglobin Concent 32.8 G/DL (32.0-36.0) Red Cell Distribution Width 13.2 % (11.6-14.8) Platelet Count 281 K/UL (150-450) Mean Platelet Volume 5.2 FL (6.5-10.1) L Neutrophils (%) (Auto) 68.2 % (45.0-75.0) Lymphocytes (%) (Auto) 10.1 % (20.0-45.0) L Monocytes (%) (Auto) 18.3 % (1.0-10.0) H Eosinophils (%) (Auto) 2.5 % (0.0-3.0) Basophils (%) (Auto) 0.9 % (0.0-2.0) Sodium Level 134 MMOL/L (136-145) L Potassium Level 4.8 MMOL/L (3.5-5.1) Chloride Level 100 MMOL/L (98-107) Carbon Dioxide Level 29 MMOL/L (21-32) Anion Gap 5 mmol/L (5-15) Blood Urea Nitrogen 14 mg/dL (7-18) Creatinine 1.6 MG/DL (0.55-1.30) H Estimat Glomerular Filtration Rate 54.3 mL/min (>60) Glucose Level 304 MG/DL (74-106) H Calcium Level 8.8 MG/DL (8.5-10.1) Test 07/27/20 12:05 POC Whole Blood Glucose Pending Microbiology Date/Time Source Procedure Growth Status 07/26/20 01:34 Urine,Clean Catch Urine Culture - Preliminary NO GROWTH AFTER 24 HOURS Resulted Intake and Output 07/26/20 07/27/20 19:00 07:00 Intake Total 1500 ml Output Total 800 ml 1000 ml Balance -800 ml 500 ml Intake IV Total 1500 ml Output Urine Total 600 ml 850 ml Gastric Drainage Total 200 ml 150 ml # Voids 3 3 # Bowel Movements 1 Objective PHYSICAL EXAMINATION: GENERAL: The patient is awake and responsive, in no acute distress. HEAD AND NECK: Pupils are equal and reactive to light. Extraocular movements are intact. Neck was supple. No JVD. NG tube in the nasal cavity was noted. LUNGS: Good air entry. No wheezes or rales. HEART: S1, S2. Regular rhythm. No gallops. ABDOMEN: Soft, distended. Decreased bowel sounds. Tenderness in the lower quadrant, right greater than left. No rebound tenderness. No fluid shift. EXTREMITIES: No cyanosis, clubbing, or edema. NEUROLOGIC: Cranial nerves II through XII grossly normal. Motor is 5/5 in all extremities. Gait was not assessed due to the patient's status. RECTAL/GENITOURINARY: Refused and deferred. PSYCHIATRIC: Mood and affect is intact. Assessment/Plan Assessment/Plan ASSESSMENT: 1. Abdominal pain, most likely secondary to the perforated appendix appendicitis. 2. Small bowel obstruction. 3. Acute kidney injury. 4. Severe dehydration and prerenal azotemia. 5. Acute perforated appendicitis. 6. Appendicitis with abscess. PLAN: 1. Admit the patient to the surgical unit. 2. Dr. Vitale = surgical consultation. 3. Code status is Full Code. 4. DVT prophylaxis is heparin subcutaneous. 5. antibiotic = Zosyn. 6. Dr. Dandre Redman=gastroenterology consultation. Edson Ramirez MD Jul 27, 2020 16:35
[2020-07-27] MEDS ORDERED: Lidocaine 1% Plain 30 ml INJ PRN (18:00)
[2020-07-27] MEDS ORDERED: Sodium Bicarbonate 4% 2.4meq/5ml vial IV PRN (18:00)
--- NOTE | 2020-07-27 18:45 | NUR ---
NURSE NOTES: Patient ambulated around unit.
--- NOTE | 2020-07-27 19:30 | NUR ---
NURSE HAND-OFF: Important Events on Shift: ambulate, hydration/antibiotics, BM, patient wants to wait to sign consent. Patient Status: stable Diet: npo Pending Orders: n/a Pending Results/Labs:n/a Pending MD notification:n/a Latest Vital Signs: Temperature 97.7 , Pulse 83 , B/P 140 /84 , Respiratory Rate 18 , O2 SAT 97 , Room Air, O2 Flow Rate . Vital Sign Comment: n/a Latest Burgess Fall Score: 35 Fall Risk: Medium Risk Safety Measures: Call light Within Reach, Side Rails x2, Bed position Low and Locked. Fall Precautions: Door Sign Patient Fall Education Report given to Meri AGARWAL.
--- NOTE | 2020-07-27 19:42 | General Progress Note ---
Subjective Allergies: Coded Allergies: No Known Allergies (Unverified , 07/25/20) Subjective Feels OK abd pain controlled Objective Last 24 Hour Vital Signs Date Time Temp Pulse Resp B/P (MAP) Pulse Ox O2 Delivery O2 Flow Rate FiO2 07/27/20 16:00 97.7 83 18 140/84 (102) 97 07/27/20 12:00 97.8 94 18 133/87 (102) 97 07/27/20 09:00 Room Air 07/27/20 08:00 98.2 87 18 139/68 (91) 97 07/27/20 04:00 99.5 90 18 143/82 (102) 97 07/27/20 00:00 99.5 93 18 148/85 (106) 96 07/26/20 21:00 Room Air 07/26/20 20:00 99.1 88 18 143/78 (99) 94 Intake and Output 07/26/20 07/27/20 19:00 07:00 Intake Total 1500 ml Output Total 800 ml 1000 ml Balance -800 ml 500 ml Intake IV Total 1500 ml Output Urine Total 600 ml 850 ml Gastric Drainage Total 200 ml 150 ml # Voids 3 3 # Bowel Movements 1 Laboratory Tests 07/26/20 23:39: POC Whole Blood Glucose 268H 07/27/20 05:15: White Blood Count 7.3, Red Blood Count 3.99L, Hemoglobin 12.2L, Hematocrit 37.2L , Mean Corpuscular Volume 93, Mean Corpuscular Hemoglobin 30.6, Mean Corpuscular Hemoglobin Concent 32.8, Red Cell Distribution Width 13.2, Platelet Count 281, Mean Platelet Volume 5.2L, Neutrophils (%) (Auto) 68.2, Lymphocytes (%) (Auto) 10.1L, Monocytes (%) (Auto) 18.3H, Eosinophils (%) (Auto) 2.5, Basophils (%) (Auto) 0.9, Sodium Level 134L, Potassium Level 4.8, Chloride Level 100, Carbon Dioxide Level 29, Anion Gap 5, Blood Urea Nitrogen 14, Creatinine 1.6H, Estimat Glomerular Filtration Rate 54.3, Glucose Level 304H, Calcium Level 8.8 07/27/20 05:21: POC Whole Blood Glucose 310H 07/27/20 12:05: POC Whole Blood Glucose [Pending] Height (Feet): 5 Height (Inches): 11.00 Weight (Pounds): 201 Objective WDWN man NCAT supple CTA RR abd distended, more in RLQ, (+) TTP no edema Assessment/Plan Assessment/Plan: Assessment - Perforated appy - multiple abd abscesses - Ileus - Azotemia - DM Recommendations - broad spectrum abx - agree with Zosyn - NPO - IVF, follow Cr and lytes - NGT - SQ heparin - follow KUB - surgical f/u and plans Thank you Dandre Girard MD Jul 27, 2020 19:42
[2020-07-27 20:00] VITALS: BP_SYST 107; BP_SYST 152; BP_DIAS 68; BP_DIAS 90
--- NOTE | 2020-07-27 20:42 | NUR ---
NURSES NOTE: Pt in bed, A/OX4, denies pain or discomfort at this time. No outward s/s of distress noted. Breathing pattern is even and unlabored on RA. NG tube re-anchored with charge nurse. On intermittent low suction. Abdomen is distended and hard. Hypoactive bowel sounds in lower L and R quadrants noted. Consent signed and in chart for procedure 07/28/20. All due medications will be administered. Bed at lowest level. Call light within reach. Pt will continue to be monitored.
[2020-07-28] VITALS (8 sets, daily range): BP systolic 138–155; BP diastolic 74–93
[2020-07-28] MEDS: D5NS 1,000 ML IV SCH (00:46)
[2020-07-28] MEDS: Piperacillin/Tazobactam 3.375 GM in NS 110 ML IVPB SCH ×3 (00:46→16:00)
[2020-07-28] MEDS: NovoLOG Insulin Flexpen SUBQ SCH ×5 (00:56→17:51)
--- NOTE | 2020-07-28 06:18 | Diagnostic Imaging Report ---
EXAM: XR Abdomen, 2 Views CLINICAL HISTORY: F/U TECHNIQUE: Frontal view of the abdomen/pelvis with upright view of the abdomen. COMPARISON: No relevant prior studies available. FINDINGS/IMPRESSION: Diffusely dilated loops of small bowel measuring up to 5.3 cm, concerning for high-grade small bowel obstruction. No free intraperitoneal air however, evaluation is limited on supine views alone. Correlate with CT scan of the abdomen and pelvis if this is not a known finding. The osseous structures are intact.
--- NOTE | 2020-07-28 06:18 | Diagnostic Imaging Report ---
EXAM: XR Chest, 2 Views CLINICAL HISTORY: ABD PAIN TECHNIQUE: Frontal and lateral views of the chest. COMPARISON: No relevant prior studies available. FINDINGS/IMPRESSION: There is no focal consolidation, pleural effusion, or pneumothorax. Low lung volumes secondary to poor inspiration. Mildly prominent heart size. Enteric feeding tube terminates in the stomach.
--- NOTE | 2020-07-28 06:19 | Cardiology Report ---
APPROVED REPORT EXAM: Two-dimensional and M-mode echocardiogram with Doppler and color Doppler. INDICATION BBB M-Mode DIMENSIONS IVSd0.9 (0.7-1.1cm)Left Atrium (MM)3.3 (1.6-4.0cm) LVDd4.8 (3.5-5.6cm)Aortic Root4.2 (2.0-3.7cm) PWd0.8 (0.7-1.1cm)Aortic Cusp Exc.2.1 (1.5-2.0cm) IVSs1.6 cm LVDs2.5 (2.5-4.0cm) PWs1.3 cm <Conclusion> Normal left ventricular chamber size, systolic function and wall motion. Left ventricular ejection fraction estimated to be 60-65%. All other cardiac chamber sizes are within normal limits. Calcification of aortic valve with adequate cusp excursion. Thickened mitral valve leaflets with normal excursion. Mitral annulus and aortic root calcification. Pulmonic valve not well visualized. Normal tricuspid valve structure. IVC at normal size with physiologic collapse. A color flow and spectral Doppler study was performed and revealed: Trace mitral regurgitation. Mitral diastolic velocities suggest reduced left ventricular relaxation c/w mild LV diastolic dysfunction (Grade I ). Mild tricuspid regurgitation. Tricuspid systolic velocities suggests peak right ventricular systolic pressure of 38mmHg,consistent with mild pulmonary hypertension.
--- NOTE | 2020-07-28 06:48 | NUR ---
NURSES NOTE: Pt NPO. Gave 2 units of insulin for AM dosage for BS 270.
[2020-07-28 06:59] LABS: BASOPHILS % (AUTO) 0.6 % (0.0-2.0); EOSINOPHILS % (AUTO) 1.4 % (0.0-3.0); HEMATOCRIT 35.2 % (42.0-52.0); HEMOGLOBIN 11.5 G/DL (14.2-18.0); LYMPHOCYTES % (AUTO) 10.9 % (20.0-45.0); MEAN CORPUSCULAR VOLUME 93 FL (80-99); MONOCYTES % (AUTO) 11.2 % (1.0-10.0); NEUTROPHILS % (AUTO) 75.9 % (45.0-75.0); PLATELET COUNT 306 K/UL (150-450); RED BLOOD COUNT 3.77 M/UL (4.70-6.10); RED CELL DISTRIBUTION WIDTH 13.3 % (11.6-14.8); WHITE BLOOD COUNT 10.2 K/UL (4.8-10.8)
[2020-07-28 07:18] LABS: ALBUMIN 2.2 G/DL (3.4-5.0); ALBUMIN/GLOBULIN RATIO 0.6 (1.0-2.7); BILIRUBIN,TOTAL 0.4 MG/DL (0.2-1.0); CALCIUM 8.6 MG/DL (8.5-10.1); CREATININE 1.6 MG/DL (0.55-1.30); POTASSIUM 4.3 MMOL/L (3.5-5.1)
--- NOTE | 2020-07-28 07:45 | NUR ---
NURSE NOTES: Received report from STEFANO Jerez. Pt awake in bed, alert and oriented, able to make needs known. Breathing even and unlabored. No acute distress noted. Denies any pain at this time. Noted with NG tube on right nare to low intermittent suction, tubed intact and patent. Noted abdominal distention. Pt on NPO, planned for CT guided drain placement today. Call light within reach. Will continue to monitor.
--- NOTE | 2020-07-28 07:52 | NUR ---
NURSES NOTE: UNDO on the 2 units of insulin and administered 4 units due to BS number.
--- NOTE | 2020-07-28 07:53 | NUR ---
NURSE HAND-OFF: Important Events on Shift:[CT guided drain placement 07/28. Consents in the chart. NPO] Patient Status: [STABLE] Diet: [NPO] Pending Orders: [COVID TEST] Pending Results/Labs:[BMP CMP PENDING] Pending MD notification:[NONE] Latest Vital Signs: Temperature 98.5 , Pulse 91 , B/P 138 /74 , Respiratory Rate 18 , O2 SAT 96 , Room Air, O2 Flow Rate . Vital Sign Comment: [WNL] Latest Burgess Fall Score: 35 Fall Risk: Medium Risk Safety Measures: Call light Within Reach, Bed Alarm Zone 1, Side Rails Side Rails x2, Bed position Low and Locked. Fall Precautions: Door Sign Patient Fall Education Report given to [STEFANO KEYES].
[2020-07-28 08:01] LABS: % IRON SATURATION 14 % (15-50); IRON 26 ug/dL (50-175); TOTAL IRON BINDING CAPACITY 191 ug/dL (250-450)
[2020-07-28 08:13] LABS: FERRITIN 336 NG/ML (8-388); PHOSPHORUS 2.8 MG/DL (2.5-4.9)
[2020-07-28] MEDS: Heparin 5000 units/ml inj SUBQ SCH ×2 (08:50→21:54)
--- NOTE | 2020-07-28 08:59 | NUR ---
NURSE NOTES: Received result for Covid test from lab. Negative
--- NOTE | 2020-07-28 13:12 | Surgery Progress Note ---
Surgery Progress Note Subjective Additional Comments 4x BM today pain improved no n/v labs stable comfortable plan CT guided drain today Objective Last 24 Hour Vital Signs Date Time Temp Pulse Resp B/P (MAP) Pulse Ox O2 Delivery O2 Flow Rate FiO2 07/28/20 11:53 97.7 70 18 155/76 (102) 97 07/28/20 10:17 Room Air 07/28/20 09:00 Room Air 07/28/20 08:00 98.8 69 18 142/84 (103) 95 07/28/20 04:00 98.5 91 18 138/74 (95) 96 07/27/20 21:00 Room Air 07/27/20 20:00 98.2 91 18 152/90 (110) 98 07/27/20 16:00 97.7 83 18 140/84 (102) 97 I&O Intake and Output 07/27/20 07/28/20 19:00 07:00 Output Total 100 ml 650 ml Balance -100 ml -650 ml Output Urine Total 500 ml Gastric Drainage Total 100 ml 150 ml # Voids 4 3 Cardiovascular: RSR Respiratory: clear Abdomen: soft, flat, non-tender - improved , present bowel sounds Extremities: no edema, no tenderness, no cyanosis Laboratory Tests Test 07/27/20 17:47 07/28/20 05:00 07/28/20 06:24 07/28/20 11:43 POC Whole Blood Glucose Pending Pending Pending White Blood Count 10.2 K/UL (4.8-10.8) Red Blood Count 3.77 M/UL (4.70-6.10) L Hemoglobin 11.5 G/DL (14.2-18.0) L Hematocrit 35.2 % (42.0-52.0) L Mean Corpuscular Volume 93 FL (80-99) Mean Corpuscular Hemoglobin 30.6 PG (27.0-31.0) Mean Corpuscular Hemoglobin Concent 32.7 G/DL (32.0-36.0) Red Cell Distribution Width 13.3 % (11.6-14.8) Platelet Count 306 K/UL (150-450) Mean Platelet Volume 5.0 FL (6.5-10.1) L Neutrophils (%) (Auto) 75.9 % (45.0-75.0) H Lymphocytes (%) (Auto) 10.9 % (20.0-45.0) L Monocytes (%) (Auto) 11.2 % (1.0-10.0) H Eosinophils (%) (Auto) 1.4 % (0.0-3.0) Basophils (%) (Auto) 0.6 % (0.0-2.0) Sodium Level 135 MMOL/L (136-145) L Potassium Level 4.3 MMOL/L (3.5-5.1) Chloride Level 100 MMOL/L (98-107) Carbon Dioxide Level 27 MMOL/L (21-32) Anion Gap 8 mmol/L (5-15) Blood Urea Nitrogen 11 mg/dL (7-18) Creatinine 1.6 MG/DL (0.55-1.30) H Estimat Glomerular Filtration Rate 54.3 mL/min (>60) Glucose Level 288 MG/DL (74-106) H Uric Acid 2.4 MG/DL (2.6-7.2) L Calcium Level 8.6 MG/DL (8.5-10.1) Phosphorus Level 2.8 MG/DL (2.5-4.9) Magnesium Level 2.0 MG/DL (1.8-2.4) Iron Level 26 ug/dL (50-175) L Total Iron Binding Capacity 191 ug/dL (250-450) L Percent Iron Saturation 14 % (15-50) L Unsaturated Iron Binding 165 ug/dL (112-346) Ferritin 336 NG/ML (8-388) Total Bilirubin 0.4 MG/DL (0.2-1.0) Aspartate Amino Transf (AST/SGOT) 18 U/L (15-37) Alanine Aminotransferase (ALT/SGPT) 16 U/L (12-78) Alkaline Phosphatase 83 U/L (46-116) C-Reactive Protein, Quantitative 32.8 mg/dL (0.00-0.90) H Pro-B-Type Natriuretic Peptide 232 pg/mL (0-125) H Total Protein 5.9 G/DL (6.4-8.2) L Albumin 2.2 G/DL (3.4-5.0) L Globulin 3.7 g/dL Albumin/Globulin Ratio 0.6 (1.0-2.7) L Vitamin B12 Level > 2000 PG/ML (193-986) H Folate 9.0 NG/ML (8.6-58.9) Plan Problems: (1) Small bowel obstruction (2) Appendicitis with abscess (3) Acute perforated appendicitis Assessment & Plan: 59 male abdominal pain 6 days currently afebrile hemodynamic stable no leukocytosis mild elevated renal insufficiency. Distended no bowel function for a few days decreased appetite CT identified to sick centimeter fluid collections small 2 to 3 cm right lower quadrant fluid collection no appendix visualized stranding in the mesenteric root and the right lower quadrant on examination focal right lower quadrant tenderness. Clinical picture is consistent with likely acute perforated appendicitis with abscess formation. Ileus likely subsequent to inflammatory intra-abdominal process and unlikely obstructed Will need further work-up and care planning. Other etiologies include small bowel obstruction resulting fluid collection or translocation abscess formation. Potential intra-abdominal abscess formation. N.p.o. Okay for ice chips and sips of water for patient's comfort IV fluids IV antibiotics Continue NG tube for the meantime low intermittent suction Rx as written Activity as tolerated We will discussed with radiology for consideration of interventional IR drainage of abscess Discussed with patient extended length of stay likely 5 to 7 days potentially mo re if necessary. Thank you for let me participate in patient's care will follow with recommendations improving +bowel function ng output decreased abd exam improved labs noted Waldemar Vitale Jul 28, 2020 13:12
[2020-07-28] MEDS ORDERED: Omnipaque-300 100ml vial INJ PRN (14:00)
--- NOTE | 2020-07-28 14:07 | NUR ---
NURSE NOTES: Received order for CT abd/pelvis with IV contrast only from Dr. Vitale. MD is aware of patient's creatinine 1.6, per MD ok to proceed with IV contrast.
--- NOTE | 2020-07-28 14:47 | NUR ---
CASE MANAGEMENT: REVIEW SI: ACUTE PERFORATED APPENDICITIS . APPENDICITIS WITH ABSCESS . SBO T 97.7 HR 70 RR 18 BP 155/76 SAT 97% ROOM AIR H/H 11.5/35.2 NA 135 IS: NS IVF @ 100ML/HR HEPARIN SUBQ Q12HR ZOSYN IV Q8HR ZOFRAN IV Q4HR PRN MORPHINE IV Q4HR PRN NGT LOW INTERMITTENT SUCTION IR DRAINAGE OF ABSCESS MED/SURG STATUS DCP: PATIENT IS FROM HOME
--- NOTE | 2020-07-28 16:10 | NUR ---
NURSE NOTES: Pt came back from procedure with stable condition. Noted with drain cath on RLQ, intact and patent.
--- NOTE | 2020-07-28 16:57 | Diagnostic Imaging Report ---
Clinical Indication: Abdominal pain, history of perforated appendicitis Technique: Patient given enteric contrast. IV administration nonionic contrast. Venous phase spiral acquisition obtained through the abdomen and pelvis. Multiplanar reconstructions were generated. Total dose length product 418 mGycm. CTDIvol(s) 7 mGy. Dose reduction achieved using automated exposure control Comparison: none Findings: What is probably an enlarged appendix with a diameter of over 15 mm is seen in the right lower quadrant. Adjacent to it and adjacent to the cecal tip is a rim-enhancing fluid collection which measures 4.5 cm in diameter. There is questionably a second smaller fluid and gas collection in the posterior medial to this, although this could also represent an unopacified segment of small bowel. There is a gas and fluid collection measuring 2.4 cm in diameter medial to the above described lesion within the mesenteric root. There is inflammation of the right lower quadrant mesenteric fat. There is marked wall thickening of the distal sigmoid. No other evidence of free intraperitoneal gas or fluid. There is distal esophagus, stomach, duodenum are unremarkable, except for the presence of a well-positioned nasogastric tube. No small bowel distention. Ingested contrast has traversed the entirety of the GI tract and reached the rectum. The gallbladder demonstrates slight hyperattenuation of the contents, may be excreted contrast from earlier contrast studies. The liver demonstrates a subcentimeter low-attenuation lesion in segment 7 which is too small to characterize. The bile ducts, pancreas, spleen, adrenals are unremarkable. The kidneys demonstrate subcentimeter low-attenuation lesions which are too small to characterize. No pelvic mass or adenopathy. The included lung bases demonstrate bilateral small pleural effusions. There are also some dependent atelectatic changes. The bones are unremarkable. Impression: Evidence of complicated acute appendicitis, with thickened appendix, and likely 2 periappendiceal abscesses. The more superficial of these appears well organized. The deeper of these appears less well organized. Thickening of the sigmoid wall, probably sympathetic inflammation related to the adjacent periappendiceal inflammation Incidental finding of subcentimeter low-attenuation liver and renal lesions, too small to characterize, most likely benign simple cysts. Nasogastric tube in good position Small bilateral pleural effusions. Basilar pulmonary atelectatic changes The CT scanner at [facility] is accredited by the [employer] and the scans are performed using protocols designed to limit radiation exposure to as low as reasonably achievable to attain images of sufficient resolution adequate for diagnostic evaluation.
--- NOTE | 2020-07-28 18:15 | Pre-Procedure Note/Attestation ---
Pre-Procedure Note/Attestation Complete Prior to Procedure Planned Procedure: right Procedure Narrative: abscess drainage Indications for Procedure Pre-Operative Diagnosis: Periappendiceal abscess Attestation I attest that I discussed the nature of the procedure; its benefits; risks and complications; and alternatives (and the risks and benefits of such alternatives), prior to the procedure, with the patient (or the patient's legal financial representative). I attest that, if there was a reasonable possibility of needing a blood transfusion, the patient (or the patient's legal financial representative) was given the [facility] standardized written summary, pursuant to the Esa Kimberli Blood Safety Act ([place] Health and Safety Code # 1645, as amended). I attest that I re-evaluated the patient just prior to the surgery and that there has been no change in the patient's H&P, except as documented below: Junior Campos MD Jul 28, 2020 18:15
--- NOTE | 2020-07-28 18:16 | Brief Operative Note ---
Immediate Post Operative Note Operative Note Pre-op Diagnosis: Periappendiceal abscess Procedure: CT guided drainage Post-op Diagnosis: same as pre-op Surgeon: Lavonne Chen Anesthesia: local Specimen: yes - 50 ml pus Complications: none Fluids: none Drains: other - 8 F pigtail Implant(s) used?: No Junior Chen MD Jul 28, 2020 18:16
--- NOTE | 2020-07-28 19:09 | Diagnostic Imaging Report ---
Indication: Abdominal pain Technique: Supine view of the abdomen Comparison: 07/26/2020 Findings: Dilated gas-filled small bowel loops are seen in the left upper quadrant, appearing less distended than on the prior study. There is a nasogastric tube in place. Impression: Slightly improved dilated left upper quadrant small bowel loops. This presumably ileus related to known history of appendicitis, given findings on subsequent CT scan-please refer to that report
--- NOTE | 2020-07-28 19:19 | NUR ---
NURSE HAND-OFF: Important Events on Shift:[CT drain placement, no c/o pain, had BM today] Patient Status: [stable] Diet: [NPO] Pending Orders: [] Pending Results/Labs:[] Pending MD notification:[] Latest Vital Signs: Temperature 97.5 , Pulse 72 , B/P 152 /84 , Respiratory Rate 15 , O2 SAT 98 , Room Air, O2 Flow Rate 2.0 . Vital Sign Comment: [stable] Latest Burgess Fall Score: 35 Fall Risk: Medium Risk Safety Measures: Call light Within Reach, Bed Alarm Zone 1, Side Rails Side Rails x2, Bed position Low and Locked. Fall Precautions: Door Sign Patient Fall Education Report given to [STEFANO Jerez].
--- NOTE | 2020-07-28 19:30 | Diagnostic Imaging Report ---
Indication: Right lower quadrant abscess Technique: Prior imaging studies reviewed. Informed consent obtained prior to commencement of the procedure. Procedural timeout performed. Localizing acquisitions obtained through the lower abdomen and pelvis. Intended puncture site sterilely prepped and draped. Local anesthesia with 1% lidocaine. Using trocar technique, and 8.5 Chinese Wylie-Lewis catheter was advanced into the right lower quadrant collection. Total of 53 mL of pus aspirated. Specimen was sent to the lab. Pigtail was formed and the catheter was fixed to the skin The patient tolerated the procedure well, without immediate complication. Total dose length product 237 mGycm. CTDIvol(s) 12 mGy. Radiation dose was minimized using automated exposure control Comparison: Reference made to CT scan performed earlier the same day Findings: Completion images document placement of the pigtail drainage catheter within the right lower quadrant abscess. There is essentially complete evacuation of the abscess demonstrated. Impression: Successful drainage of right lower quadrant periappendiceal abscess. This yielded 53 mL of pus. Specimen sent to the lab for microbial analysis The CT scanner at [facility] is accredited by the [employer] and the scans are performed using protocols designed to limit radiation exposure to as low as reasonably achievable to attain images of sufficient resolution adequate for diagnostic evaluation.
--- NOTE | 2020-07-28 19:44 | NUR ---
NURSES NOTE: Pt in bed, A/OX4. Pt denies pain or discomfort at this time. No outward s/s of distress noted. Breathing pattern is even and unlabored on RA. Uresil drain, RLQ in place to be emptied end of shift. IV R AC, in place, patent, infusing IVF without incident. Abdomen, distended, hard, hypoactive bowel sounds noted in 4 quadrants. All due medications will be administered. Bed at lowest level. Call light within reach. Pt will continue to be monitored.
--- NOTE | 2020-07-28 20:23 | Internal Med Progress Note ---
Subjective Date of Service: Jul 28, 2020 Physician Name Edson Ramirez Attending Physician Richard Zafar MD Current Medications Medications (Trade) Dose Ordered Sig/Chloe Route PRN Reason Start Time Stop Time Status Last Admin Dose Admin Acetaminophen (Tylenol) 650 mg Q4H PRN RECTAL TEMP and pain 07/25/20 22:15 08/24/20 22:14 07/27/20 12:07 Acetaminophen (Tylenol) 650 mg Q6H PRN ORAL for fever and mild pain 1-3 07/25/20 23:00 08/24/20 22:59 Bisacodyl (Dulcolax) 10 mg HSPRN PRN RECTAL Constipation 07/25/20 22:15 10/23/20 22:14 Dextrose (Dextrose 50%) 25 ml Q30M PRN IV Hypoglycemia 07/26/20 14:30 10/24/20 14:29 Dextrose (Dextrose 50%) 50 ml Q30M PRN IV Hypoglycemia 07/26/20 14:30 10/24/20 14:29 Famotidine (Pepcid I.v.) 20 mg Q12HR IVP 07/26/20 09:00 08/25/20 08:59 07/28/20 08:49 Heparin Sodium (Porcine) (Heparin 5000 units/ml) 5,000 units EVERY 12 HOURS SUBQ 07/26/20 09:30 09/09/20 09:29 07/27/20 20:34 Insulin Aspart (NovoLOG) EVERY 6 HOURS SUBQ 07/26/20 18:00 10/24/20 17:59 07/28/20 17:51 Iohexol (OMNIPAQUE-300 100ml) 100 ml NOW PRN INJ Radiology Procedure 07/28/20 14:00 07/30/20 13:59 Lidocaine HCl (Xylocaine 1% 30ml) 30 ml ONCE PRN INJ CATH PLACEMENT 07/27/20 18:00 07/29/20 17:59 Lorazepam (Ativan 2mg/ml 1ml) 0.5 mg Q4H PRN IV For Anxiety 07/25/20 22:15 08/01/20 22:14 Morphine Sulfate (Morphine Sulfate) 2 mg Q4H PRN IVP moderate to severe pain 4-10 07/25/20 23:00 08/01/20 22:59 07/27/20 04:08 Morphine Sulfate (Morphine Sulfate) 4 mg Q4H PRN IVP Severe Pain (Pain Scale 7-10) 07/25/20 22:15 08/01/20 22:14 07/26/20 17:40 Ondansetron HCl (Zofran) 4 mg Q4H PRN IVP Nausea & Vomiting 07/25/20 23:00 08/24/20 22:59 Piperacillin Sod/ Tazobactam Sod 3.375 gm/Sodium Chloride 110 ml @ 27.5 mls/hr Q8H IVPB 07/26/20 00:00 08/02/20 00:00 07/28/20 16:00 Sodium Bicarbonate (Sodium Bicarbonate 4%) 1 ml NOW PRN IV Radiology Procedure 07/27/20 18:00 07/29/20 17:59 Sodium Chloride 1,000 ml @ 100 mls/hr Q10H IV 07/28/20 13:00 08/27/20 12:59 07/28/20 13:28 Allergies: Coded Allergies: No Known Allergies (Unverified , 07/25/20) ROS Limited/Unobtainable: No Constitutional: Reports: no symptoms HEENT: Reports: no symptoms Cardiovascular: Reports: no symptoms Respiratory: Reports: no symptoms Gastrointestinal/Abdominal: Reports: abdomen distended, abdominal pain Genitourinary: Reports: no symptoms Neurologic/Psychiatric: Reports: no symptoms Subjective 59 YO M admitted with nausea, vomiting, abdominal distention and pain. Now small bowel obstruction and perforated appendix. Cover for Int Jeffrey-DR Zafar. S/P CT guided drain placement Objective Last Vital Signs Date Time Temp Pulse Resp B/P (MAP) Pulse Ox O2 Delivery O2 Flow Rate FiO2 07/28/20 16:00 97.5 72 15 152/84 (106) 98 07/28/20 15:38 2.0 07/28/20 10:17 Room Air Laboratory Tests Test 07/28/20 05:00 07/28/20 06:24 07/28/20 11:43 07/28/20 17:49 White Blood Count 10.2 K/UL (4.8-10.8) Red Blood Count 3.77 M/UL (4.70-6.10) L Hemoglobin 11.5 G/DL (14.2-18.0) L Hematocrit 35.2 % (42.0-52.0) L Mean Corpuscular Volume 93 FL (80-99) Mean Corpuscular Hemoglobin 30.6 PG (27.0-31.0) Mean Corpuscular Hemoglobin Concent 32.7 G/DL (32.0-36.0) Red Cell Distribution Width 13.3 % (11.6-14.8) Platelet Count 306 K/UL (150-450) Mean Platelet Volume 5.0 FL (6.5-10.1) L Neutrophils (%) (Auto) 75.9 % (45.0-75.0) H Lymphocytes (%) (Auto) 10.9 % (20.0-45.0) L Monocytes (%) (Auto) 11.2 % (1.0-10.0) H Eosinophils (%) (Auto) 1.4 % (0.0-3.0) Basophils (%) (Auto) 0.6 % (0.0-2.0) Sodium Level 135 MMOL/L (136-145) L Potassium Level 4.3 MMOL/L (3.5-5.1) Chloride Level 100 MMOL/L (98-107) Carbon Dioxide Level 27 MMOL/L (21-32) Anion Gap 8 mmol/L (5-15) Blood Urea Nitrogen 11 mg/dL (7-18) Creatinine 1.6 MG/DL (0.55-1.30) H Estimat Glomerular Filtration Rate 54.3 mL/min (>60) Glucose Level 288 MG/DL (74-106) H Uric Acid 2.4 MG/DL (2.6-7.2) L Calcium Level 8.6 MG/DL (8.5-10.1) Phosphorus Level 2.8 MG/DL (2.5-4.9) Magnesium Level 2.0 MG/DL (1.8-2.4) Iron Level 26 ug/dL (50-175) L Total Iron Binding Capacity 191 ug/dL (250-450) L Percent Iron Saturation 14 % (15-50) L Unsaturated Iron Binding 165 ug/dL (112-346) Ferritin 336 NG/ML (8-388) Total Bilirubin 0.4 MG/DL (0.2-1.0) Aspartate Amino Transf (AST/SGOT) 18 U/L (15-37) Alanine Aminotransferase (ALT/SGPT) 16 U/L (12-78) Alkaline Phosphatase 83 U/L (46-116) C-Reactive Protein, Quantitative 32.8 mg/dL (0.00-0.90) H Pro-B-Type Natriuretic Peptide 232 pg/mL (0-125) H Total Protein 5.9 G/DL (6.4-8.2) L Albumin 2.2 G/DL (3.4-5.0) L Globulin 3.7 g/dL Albumin/Globulin Ratio 0.6 (1.0-2.7) L Vitamin B12 Level > 2000 PG/ML (193-986) H Folate 9.0 NG/ML (8.6-58.9) POC Whole Blood Glucose Pending Pending Pending Microbiology Date/Time Source Procedure Growth Status 07/28/20 08:22 Nasopharynx SARS-CoV-2 RdRp Gene Assay - Final Complete 07/26/20 01:34 Urine,Clean Catch Urine Culture - Final NO GROWTH AFTER 48 HOURS Complete Intake and Output 07/27/20 07/28/20 19:00 07:00 Output Total 100 ml 650 ml Balance -100 ml -650 ml Output Urine Total 500 ml Gastric Drainage Total 100 ml 150 ml # Voids 4 3 Objective PHYSICAL EXAMINATION: GENERAL: The patient is awake and responsive, in no acute distress. HEAD AND NECK: Pupils are equal and reactive to light. Extraocular movements are intact. Neck was supple. No JVD. NG tube in the nasal cavity was noted. LUNGS: Good air entry. No wheezes or rales. HEART: S1, S2. Regular rhythm. No gallops. ABDOMEN: Soft, distended. Decreased bowel sounds. Tenderness in the lower quadrant, right greater than left. No rebound tenderness. No fluid shift. EXTREMITIES: No cyanosis, clubbing, or edema. NEUROLOGIC: Cranial nerves II through XII grossly normal. Motor is 5/5 in all extremities. Gait was not assessed due to the patient's status. RECTAL/GENITOURINARY: Refused and deferred. PSYCHIATRIC: Mood and affect is intact. Assessment/Plan Assessment/Plan ASSESSMENT: 1. Abdominal pain, 2. perforated appendix/abscess 3. Small bowel obstruction. 4. Acute kidney injury. 5. Severe dehydration and prerenal azotemia. 6. Acute perforated appendicitis. 7. Appendicitis with abscess. PLAN: 1. Admit the patient to the surgical unit. 2. Dr. Vitale = surgical consultation. 3. Code status is Full Code. 4. DVT prophylaxis is heparin subcutaneous. 5. antibiotic = Zosyn. 6. Dr. Dandre Redman=gastroenterology consultation. 7. S/P CT guided drain placed 07/28/20 Edson Ramirez MD Jul 28, 2020 20:23
--- NOTE | 2020-07-28 22:16 | General Progress Note ---
Subjective Allergies: Coded Allergies: No Known Allergies (Unverified , 07/25/20) Subjective Feels OK abd pain controlled for IR drainage today Objective Last 24 Hour Vital Signs Date Time Temp Pulse Resp B/P (MAP) Pulse Ox O2 Delivery O2 Flow Rate FiO2 07/28/20 20:00 98.4 78 16 155/93 (113) 95 07/28/20 16:00 97.5 72 15 152/84 (106) 98 07/28/20 15:44 64 15 150/83 (105) 99 07/28/20 15:38 77 24 2.0 07/28/20 15:30 77 24 154/84 (107) 99 07/28/20 11:53 97.7 70 18 155/76 (102) 97 07/28/20 10:17 Room Air 07/28/20 09:00 Room Air 07/28/20 08:00 98.8 69 18 142/84 (103) 95 07/28/20 04:00 98.5 91 18 138/74 (95) 96 Intake and Output 07/27/20 07/28/20 19:00 07:00 Output Total 100 ml 650 ml Balance -100 ml -650 ml Output Urine Total 500 ml Gastric Drainage Total 100 ml 150 ml # Voids 4 3 Laboratory Tests 07/28/20 05:00: White Blood Count 10.2, Red Blood Count 3.77L, Hemoglobin 11.5L, Hematocrit 35.2L, Mean Corpuscular Volume 93, Mean Corpuscular Hemoglobin 30.6, Mean Corpuscular Hemoglobin Concent 32.7, Red Cell Distribution Width 13.3, Platelet Count 306, Mean Platelet Volume 5.0L, Neutrophils (%) (Auto) 75.9H, Lymphocytes (%) (Auto) 10.9L, Monocytes (%) (Auto) 11.2H, Eosinophils (%) (Auto) 1.4, Basophils (%) (Auto) 0.6, Sodium Level 135L, Potassium Level 4.3, Chloride Level 100, Carbon Dioxide Level 27, Anion Gap 8, Blood Urea Nitrogen 11, Creatinine 1.6H, Estimat Glomerular Filtration Rate 54.3, Glucose Level 288H, Uric Acid 2.4L, Calcium Level 8.6, Phosphorus Level 2.8, Magnesium Level 2.0, Iron Level 26L, Total Iron Binding Capacity 191L, Percent Iron Saturation 14L, Unsaturated Iron Binding 165, Ferritin 336, Total Bilirubin 0.4, Aspartate Amino Transf (AST/SGOT) 18, Alanine Aminotransferase (ALT/SGPT) 16, Alkaline Phosphatase 83, C-Reactive Protein, Quantitative 32.8H, Pro-B-Type Natriuretic Peptide 232H, Tot al Protein 5.9L, Albumin 2.2L, Globulin 3.7, Albumin/Globulin Ratio 0.6L, Vitamin B12 Level > 2000H, Folate 9.0 07/28/20 06:24: POC Whole Blood Glucose [Pending] 07/28/20 11:43: POC Whole Blood Glucose [Pending] 07/28/20 17:49: POC Whole Blood Glucose [Pending] Height (Feet): 5 Height (Inches): 11.00 Weight (Pounds): 201 Objective WDWN man NCAT supple CTA RR abd distended, more in RLQ, (+) TTP (exam this am) no edema Assessment/Plan Assessment/Plan: Assessment - Perforated appy - multiple abd abscesses - Ileus - Azotemia - DM Recommendations - broad spectrum abx - agree with Zosyn - NPO - IVF, follow Cr and lytes - NGT - SQ heparin - follow KUB - IR drainage Thank you Dandre Girard MD Jul 28, 2020 22:16
[2020-07-29] MEDS: Piperacillin/Tazobactam 3.375 GM in NS 110 ML IVPB SCH ×4 (00:31→23:06)
[2020-07-29] MEDS: NovoLOG Insulin Flexpen SUBQ SCH ×4 (00:34→17:37)
[2020-07-29 04:00] VITALS: BP 153/79
[2020-07-29 05:32] LABS: BASOPHILS % (AUTO) 1.3 % (0.0-2.0); EOSINOPHILS % (AUTO) 1.8 % (0.0-3.0); HEMATOCRIT 34.5 % (42.0-52.0); HEMOGLOBIN 11.4 G/DL (14.2-18.0); LYMPHOCYTES % (AUTO) 14.7 % (20.0-45.0); MEAN CORPUSCULAR VOLUME 93 FL (80-99); MONOCYTES % (AUTO) 9.8 % (1.0-10.0); NEUTROPHILS % (AUTO) 72.4 % (45.0-75.0); PLATELET COUNT 358 K/UL (150-450); RED BLOOD COUNT 3.71 M/UL (4.70-6.10); RED CELL DISTRIBUTION WIDTH 12.8 % (11.6-14.8); WHITE BLOOD COUNT 9.5 K/UL (4.8-10.8)
[2020-07-29 05:58] LABS: ALBUMIN 2.2 G/DL (3.4-5.0); ALBUMIN/GLOBULIN RATIO 0.5 (1.0-2.7); BILIRUBIN,TOTAL 0.4 MG/DL (0.2-1.0); CALCIUM 8.6 MG/DL (8.5-10.1); CREATININE 1.5 MG/DL (0.55-1.30); POTASSIUM 4.1 MMOL/L (3.5-5.1)
--- NOTE | 2020-07-29 07:15 | NUR ---
NURSE NOTES: Handoff received from Meri AGARWAL. Patient is awake and alert, no signs of distress noted, breathing is even and unlabored on room air. NG tube noted on right nares to low intermittent suction, uracil drain noted on RLQ. Left AC IV is intact and asymptomatic, running IVF as ordered. Bed is low and locked, side rails up x2, call light is within reach.
--- NOTE | 2020-07-29 07:26 | NUR ---
NURSE HAND-OFF: Important Events on Shift:[NONE] Patient Status: [STABLE] Diet: [NPO] Pending Orders: [NONE] Pending Results/Labs:[NONE] Pending MD notification:[NONE] Latest Vital Signs: Temperature 98.6 , Pulse 74 , B/P 153 /79 , Respiratory Rate 17 , O2 SAT 95 , Room Air, O2 Flow Rate 2.0 . Vital Sign Comment: [WNL] Latest Burgess Fall Score: 35 Fall Risk: Medium Risk Safety Measures: Call light Within Reach, Bed Alarm Zone 1, Side Rails Side Rails x2, Bed position Low and Locked. Fall Precautions: Door Sign Patient Fall Education Report given to [STEFANO CHADWICK].
[2020-07-29] MEDS: Heparin 5000 units/ml inj SUBQ SCH ×2 (07:59→20:02)
[2020-07-29 08:00] VITALS: BP 152/75
[2020-07-29 10:07] LABS: PHOSPHORUS 3.1 MG/DL (2.5-4.9)
--- NOTE | 2020-07-29 10:55 | NUR ---
NURSE NOTES: NG tube removed per MD order, patient started on clear liquid diet.
--- NOTE | 2020-07-29 10:59 | Surgery Progress Note ---
Surgery Progress Note Subjective Symptoms: improved, tolerating diet, voiding well, passing flatus, BM, pain decreased Additional Comments ct reviewed IR drain placed diet initiated ng removed Objective Last 24 Hour Vital Signs Date Time Temp Pulse Resp B/P (MAP) Pulse Ox O2 Delivery O2 Flow Rate FiO2 07/29/20 09:00 Room Air 07/29/20 08:00 97.6 59 20 152/75 (100) 96 07/29/20 04:00 98.6 74 17 153/79 (103) 95 07/28/20 21:00 Room Air 07/28/20 20:00 98.4 78 16 155/93 (113) 95 07/28/20 16:00 97.5 72 15 152/84 (106) 98 07/28/20 15:44 64 15 150/83 (105) 99 07/28/20 15:38 77 24 2.0 07/28/20 15:30 77 24 154/84 (107) 99 07/28/20 11:53 97.7 70 18 155/76 (102) 97 I&O Intake and Output 07/28/20 07/29/20 19:00 07:00 Intake Total 82.5 ml Output Total 200 ml 550 ml Balance -200 ml -467.5 ml Intake IV Total 82.5 ml Output Urine Total 400 ml Gastric Drainage Total 200 ml 150 ml # Voids 4 2 # Bowel Movements 1 Drains: other Cardiovascular: RSR Respiratory: clear Abdomen: soft, flat, non-tender, present bowel sounds Extremities: no edema, no tenderness, no cyanosis Laboratory Tests Test 07/28/20 11:43 07/28/20 17:49 07/29/20 00:33 07/29/20 05:05 POC Whole Blood Glucose Pending Pending 171 MG/DL (74-106) H White Blood Count 9.5 K/UL (4.8-10.8) Red Blood Count 3.71 M/UL (4.70-6.10) L Hemoglobin 11.4 G/DL (14.2-18.0) L Hematocrit 34.5 % (42.0-52.0) L Mean Corpuscular Volume 93 FL (80-99) Mean Corpuscular Hemoglobin 30.7 PG (27.0-31.0) Mean Corpuscular Hemoglobin Concent 33.0 G/DL (32.0-36.0) Red Cell Distribution Width 12.8 % (11.6-14.8) Platelet Count 358 K/UL (150-450) Mean Platelet Volume 5.6 FL (6.5-10.1) L Neutrophils (%) (Auto) 72.4 % (45.0-75.0) Lymphocytes (%) (Auto) 14.7 % (20.0-45.0) L Monocytes (%) (Auto) 9.8 % (1.0-10.0) Eosinophils (%) (Auto) 1.8 % (0.0-3.0) Basophils (%) (Auto) 1.3 % (0.0-2.0) Sodium Level 139 MMOL/L (136-145) Potassium Level 4.1 MMOL/L (3.5-5.1) Chloride Level 103 MMOL/L (98-107) Carbon Dioxide Level 28 MMOL/L (21-32) Anion Gap 8 mmol/L (5-15) Blood Urea Nitrogen 12 mg/dL (7-18) Creatinine 1.5 MG/DL (0.55-1.30) H Estimat Glomerular Filtration Rate 58.4 mL/min (>60) Glucose Level 163 MG/DL (74-106) #H Uric Acid 2.6 MG/DL (2.6-7.2) Calcium Level 8.6 MG/DL (8.5-10.1) Phosphorus Level 3.1 MG/DL (2.5-4.9) Magnesium Level 1.9 MG/DL (1.8-2.4) Total Bilirubin 0.4 MG/DL (0.2-1.0) Aspartate Amino Transf (AST/SGOT) 23 U/L (15-37) Alanine Aminotransferase (ALT/SGPT) 23 U/L (12-78) Alkaline Phosphatase 86 U/L (46-116) Total Protein 6.6 G/DL (6.4-8.2) Albumin 2.2 G/DL (3.4-5.0) L Globulin 4.4 g/dL Albumin/Globulin Ratio 0.5 (1.0-2.7) L Test 07/29/20 05:10 POC Whole Blood Glucose 152 MG/DL (74-106) H Plan Problems: (1) Small bowel obstruction (2) Appendicitis with abscess (3) Acute perforated appendicitis Assessment & Plan: 59 male abdominal pain 6 days currently afebrile hemodynamic stable no leukocytosis mild elevated renal insufficiency. Distended no bowel function for a few days decreased appetite CT identified to sick centimeter fluid collections small 2 to 3 cm right lower quadrant fluid collection no appendix visualized stranding in the mesenteric root and the right lower quadrant on examination focal right lower quadrant tenderness. Clinical picture is consistent with likely acute perforated appendicitis with abscess formation. Ileus likely subsequent to inflammatory intra-abdominal process and unlikely obstructed Will need further work-up and care planning. Other etiologies include small bowel obstruction resulting fluid collection or translocation abscess formation. Potential intra-abdominal abscess formation. N.p.o. Okay for ice chips and sips of water for patient's comfort IV fluids IV antibiotics Continue NG tube for the meantime low intermittent suction Rx as written Activity as tolerated We will discussed with radiology for consideration of interventional IR drainage of abscess Discussed with patient extended length of stay likely 5 to 7 days potentially more if necessary. Thank you for let me participate in patient's care will follow with recommendations improving +bowel function ng output decreased abd exam improved labs noted s/p "iR drain of abscess 07/28 ng removed start diet Waldemar Vitale Jul 29, 2020 10:58
[2020-07-29 12:00] VITALS: BP 159/80
--- NOTE | 2020-07-29 13:05 | Pulmonology Progress Note ---
Subjective ROS Limited/Unobtainable: No Interval Events: walking with his drainage bag Allergies: Coded Allergies: No Known Allergies (Unverified , 07/25/20) Objective Last 24 Hour Vital Signs Date Time Temp Pulse Resp B/P (MAP) Pulse Ox O2 Delivery O2 Flow Rate FiO2 07/29/20 12:00 97.6 69 18 159/80 (106) 95 07/29/20 09:00 Room Air 07/29/20 08:00 97.6 59 20 152/75 (100) 96 07/29/20 04:00 98.6 74 17 153/79 (103) 95 07/28/20 21:00 Room Air 07/28/20 20:00 98.4 78 16 155/93 (113) 95 07/28/20 16:00 97.5 72 15 152/84 (106) 98 07/28/20 15:44 64 15 150/83 (105) 99 07/28/20 15:38 77 24 2.0 07/28/20 15:30 77 24 154/84 (107) 99 Intake and Output 07/28/20 07/29/20 19:00 07:00 Intake Total 82.5 ml Output Total 200 ml 550 ml Balance -200 ml -467.5 ml Intake IV Total 82.5 ml Output Urine Total 400 ml Gastric Drainage Total 200 ml 150 ml # Voids 4 2 # Bowel Movements 1 General Appearance: WD/WN HEENT: normocephalic, atraumatic Respiratory: chest wall non-tender, lungs clear Cardiovascular: normal peripheral pulses, normal rate Abdomen: normal bowel sounds, soft, non tender Genitourinary: normal external genitalia Extremities: no cyanosis Skin: no rash 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 Microbiology Date/Time Source Procedure Growth Status 07/28/20 08:22 Nasopharynx SARS-CoV-2 RdRp Gene Assay - Final Complete Laboratory Tests 07/28/20 17:49: POC Whole Blood Glucose [Pending] 07/29/20 00:33: POC Whole Blood Glucose 171H 07/29/20 05:05: White Blood Count 9.5, Red Blood Count 3.71L, Hemoglobin 11.4L, Hematocrit 34.5L , Mean Corpuscular Volume 93, Mean Corpuscular Hemoglobin 30.7, Mean Corpuscular Hemoglobin Concent 33.0, Red Cell Distribution Width 12.8, Platelet Count 358, Mean Platelet Volume 5.6L, Neutrophils (%) (Auto) 72.4, Lymphocytes (%) (Auto) 14.7L, Monocytes (%) (Auto) 9.8, Eosinophils (%) (Auto) 1.8, Basophils (%) (Auto) 1.3, Sodium Level 139, Potassium Level 4.1, Chloride Level 103, Carbon Dioxide Level 28, Anion Gap 8, Blood Urea Nitrogen 12, Creatinine 1.5H, Estimat Glomerular Filtration Rate 58.4, Glucose Level 163#H, Uric Acid 2.6, Calcium Level 8.6, Phosphorus Level 3.1, Magnesium Level 1.9, Total Bilirubin 0.4, Aspartate Amino Transf (AST/SGOT) 23, Alanine Aminotransferase (ALT/SGPT) 23, Alkaline Phosphatase 86, Total Protein 6.6, Albumin 2.2L, Globulin 4.4, Albumin/Globulin Ratio 0.5L 07/29/20 05:10: POC Whole Blood Glucose 152H 07/29/20 11:56: POC Whole Blood Glucose 137H Current Medications Medications (Trade) Dose Ordered Sig/Chloe Route PRN Reason Start Time Stop Time Status Last Admin Dose Admin Acetaminophen (Tylenol) 650 mg Q4H PRN RECTAL TEMP and pain 07/25/20 22:15 08/24/20 22:14 07/27/20 12:07 Acetaminophen (Tylenol) 650 mg Q6H PRN ORAL for fever and mild pain 1-3 07/25/20 23:00 08/24/20 22:59 Bisacodyl (Dulcolax) 10 mg HSPRN PRN RECTAL Constipation 07/25/20 22:15 10/23/20 22:14 Dextrose (Dextrose 50%) 25 ml Q30M PRN IV Hypoglycemia 07/26/20 14:30 10/24/20 14:29 Dextrose (Dextrose 50%) 50 ml Q30M PRN IV Hypoglycemia 07/26/20 14:30 10/24/20 14:29 Famotidine (Pepcid I.v.) 20 mg Q12HR IVP 07/26/20 09:00 08/25/20 08:59 07/29/20 07:57 Heparin Sodium (Porcine) (Heparin 5000 units/ml) 5,000 units EVERY 12 HOURS SUBQ 07/26/20 09:30 09/09/20 09:29 07/29/20 07:59 Insulin Aspart (NovoLOG) EVERY 6 HOURS SUBQ 07/26/20 18:00 10/24/20 17:59 07/29/20 00:34 Iohexol (OMNIPAQUE-300 100ml) 100 ml NOW PRN INJ Radiology Procedure 07/28/20 14:00 07/30/20 13:59 Lidocaine HCl (Xylocaine 1% 30ml) 30 ml ONCE PRN INJ CATH PLACEMENT 07/27/20 18:00 07/29/20 17:59 Lorazepam (Ativan 2mg/ml 1ml) 0.5 mg Q4H PRN IV For Anxiety 07/25/20 22:15 08/01/20 22:14 Morphine Sulfate (Morphine Sulfate) 2 mg Q4H PRN IVP moderate to severe pain 4-10 07/25/20 23:00 08/01/20 22:59 07/27/20 04:08 Morphine Sulfate (Morphine Sulfate) 4 mg Q4H PRN IVP Severe Pain (Pain Scale 7-10) 07/25/20 22:15 08/01/20 22:14 07/26/20 17:40 Ondansetron HCl (Zofran) 4 mg Q4H PRN IVP Nausea & Vomiting 07/25/20 23:00 08/24/20 22:59 Piperacillin Sod/ Tazobactam Sod 3.375 gm/Sodium Chloride 110 ml @ 27.5 mls/hr Q8H IVPB 07/26/20 00:00 08/02/20 00:00 07/29/20 07:57 Sodium Bicarbonate (Sodium Bicarbonate 4%) 1 ml NOW PRN IV Radiology Procedure 07/27/20 18:00 07/29/20 17:59 Sodium Chloride 1,000 ml @ 100 mls/hr Q10H IV 07/28/20 13:00 08/27/20 12:59 07/29/20 07:58 Assessment/Plan Problems: (1) Acute perforated appendicitis (2) History of hypertension (3) History of diabetes mellitus Assessment/Plan check cultures iv abx ID to see sliding scale diabetic diet monitor BP dvt prophylaxis. Chu Keith MD Jul 29, 2020 13:05
--- NOTE | 2020-07-29 14:49 | Nephrology Progress Note ---
Assessment/Plan Problem List: (1) Renal failure (ARF), acute on chronic (2) History of hypertension (3) History of diabetes mellitus (4) Hyponatremia Assessment: Resolved Assessment Renal failure with serum creatinine of 1.7 on admission today 1.5 GI pathology: Acute perforated appendicitis, appendicitis with abscess Possible small bowel obstruction Diabetes mellitus Hyponatremia Plan Now on clear liquids NG tube is now discontinued Avoid nephrotoxic's, monitor renal parameters and electrolytes IV fluids, change IV to isotonic solution IV antibiotics Subjective ROS Limited/Unobtainable: No Constitutional: Reports: malaise Objective Objective Last 24 Hour Vital Signs Date Time Temp Pulse Resp B/P (MAP) Pulse Ox O2 Delivery O2 Flow Rate FiO2 07/29/20 12:00 97.6 69 18 159/80 (106) 95 07/29/20 09:00 Room Air 07/29/20 08:00 97.6 59 20 152/75 (100) 96 07/29/20 04:00 98.6 74 17 153/79 (103) 95 07/28/20 21:00 Room Air 07/28/20 20:00 98.4 78 16 155/93 (113) 95 07/28/20 16:00 97.5 72 15 152/84 (106) 98 07/28/20 15:44 64 15 150/83 (105) 99 07/28/20 15:38 77 24 2.0 07/28/20 15:30 77 24 154/84 (107) 99 Intake and Output 07/28/20 07/29/20 19:00 07:00 Intake Total 82.5 ml Output Total 200 ml 550 ml Balance -200 ml -467.5 ml Intake IV Total 82.5 ml Output Urine Total 400 ml Gastric Drainage Total 200 ml 150 ml # Voids 4 2 # Bowel Movements 1 Current Medications Medications (Trade) Dose Ordered Sig/Chloe Route PRN Reason Start Time Stop Time Status Last Admin Dose Admin Acetaminophen (Tylenol) 650 mg Q4H PRN RECTAL TEMP and pain 07/25/20 22:15 08/24/20 22:14 07/27/20 12:07 Acetaminophen (Tylenol) 650 mg Q6H PRN ORAL for fever and mild pain 1-3 07/25/20 23:00 08/24/20 22:59 Bisacodyl (Dulcolax) 10 mg HSPRN PRN RECTAL Constipation 07/25/20 22:15 10/23/20 22:14 Dextrose (Dextrose 50%) 25 ml Q30M PRN IV Hypoglycemia 07/26/20 14:30 10/24/20 14:29 Dextrose (Dextrose 50%) 50 ml Q30M PRN IV Hypoglycemia 07/26/20 14:30 10/24/20 14:29 Famotidine (Pepcid I.v.) 20 mg Q12HR IVP 07/26/20 09:00 08/25/20 08:59 07/29/20 07:57 Heparin Sodium (Porcine) (Heparin 5000 units/ml) 5,000 units EVERY 12 HOURS SUBQ 07/26/20 09:30 09/09/20 09:29 07/29/20 07:59 Insulin Aspart (NovoLOG) EVERY 6 HOURS SUBQ 07/26/20 18:00 10/24/20 17:59 07/29/20 00:34 Iohexol (OMNIPAQUE-300 100ml) 100 ml NOW PRN INJ Radiology Procedure 07/28/20 14:00 07/30/20 13:59 Lidocaine HCl (Xylocaine 1% 30ml) 30 ml ONCE PRN INJ CATH PLACEMENT 07/27/20 18:00 07/29/20 17:59 Lorazepam (Ativan 2mg/ml 1ml) 0.5 mg Q4H PRN IV For Anxiety 07/25/20 22:15 08/01/20 22:14 Morphine Sulfate (Morphine Sulfate) 2 mg Q4H PRN IVP moderate to severe pain 4-10 07/25/20 23:00 08/01/20 22:59 07/27/20 04:08 Morphine Sulfate (Morphine Sulfate) 4 mg Q4H PRN IVP Severe Pain (Pain Scale 7-10) 07/25/20 22:15 08/01/20 22:14 07/26/20 17:40 Ondansetron HCl (Zofran) 4 mg Q4H PRN IVP Nausea & Vomiting 07/25/20 23:00 08/24/20 22:59 Piperacillin Sod/ Tazobactam Sod 3.375 gm/Sodium Chloride 110 ml @ 27.5 mls/hr Q8H IVPB 07/26/20 00:00 08/02/20 00:00 10/13/20 07:57 Sodium Bicarbonate (Sodium Bicarbonate 4%) 1 ml NOW PRN IV Radiology Procedure 07/27/20 18:00 07/29/20 17:59 Sodium Chloride 1,000 ml @ 100 mls/hr Q10H IV 07/28/20 13:00 08/27/20 12:59 07/29/20 07:58 Laboratory Tests 07/28/20 17:49: POC Whole Blood Glucose [Pending] 07/29/20 00:33: POC Whole Blood Glucose 171H 07/29/20 05:05: White Blood Count 9.5, Red Blood Count 3.71L, Hemoglobin 11.4L, Hematocrit 34.5L , Mean Corpuscular Volume 93, Mean Corpuscular Hemoglobin 30.7, Mean Corpuscular Hemoglobin Concent 33.0, Red Cell Distribution Width 12.8, Platelet Count 358, Mean Platelet Volume 5.6L, Neutrophils (%) (Auto) 72.4, Lymphocytes (%) (Auto) 14.7L, Monocytes (%) (Auto) 9.8, Eosinophils (%) (Auto) 1.8, Basophils (%) (Auto) 1.3, Sodium Level 139, Potassium Level 4.1, Chloride Level 103, Carbon Dioxide Level 28, Anion Gap 8, Blood Urea Nitrogen 12, Creatinine 1.5H, Estimat Glomerular Filtration Rate 58.4, Glucose Level 163#H, Uric Acid 2.6, Calcium Level 8.6, Phosphorus Level 3.1, Magnesium Level 1.9, Total Bilirubin 0.4, Aspartate Amino Transf (AST/SGOT) 23, Alanine Aminotransferase (ALT/SGPT) 23, Alkaline Phosphatase 86, Total Protein 6.6, Albumin 2.2L, Globulin 4.4, Albumin/Globulin Ratio 0.5L 07/29/20 05:10: POC Whole Blood Glucose 152H 07/29/20 11:56: POC Whole Blood Glucose 137H Height (Feet): 5 Height (Inches): 11.00 Weight (Pounds): 201 General Appearance: no apparent distress EENT: other - NG tube out Cardiovascular: normal rate Respiratory/Chest: decreased breath sounds Abdomen: distended Rico Patel MD Jul 29, 2020 14:49
--- NOTE | 2020-07-29 14:57 | NUR ---
CASE MANAGEMENT: REVIEW SI: ACUTE PERFORATED APPENDICITIS . APPENDICITIS WITH ABSCESS . SBO T 98.6 HR 59 RR 20 BP 152/75 SAT 96% ROOM AIR H/H 11.4/34.5 GLUCOSE 137 IR DRAINAGE OF ABSCESS 07/28 -- CULTURE FLUID IS: NS IVF @ 100ML/HR HEPARIN SUBQ Q12HR ZOSYN IV Q8HR ZOFRAN IV Q4HR PRN MORPHINE IV Q4HR PRN NGT REMOVED CLD ADVANCE TOLERATED MED/SURG STATUS DCP: PATIENT IS FROM HOME
--- NOTE | 2020-07-29 15:52 | Consultation ---
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 Pain is progressive worse and associated with multiple episodes of vomiting and unable to tolerate PO. Upon admission,w as found to have SBO. CT abd showed intraabdominal abscess. Denied dizziness, fall, head trauma, hematochezia, hematemesis, f/c, CP, SOB. Allergies: Coded Allergies: No Known Allergies (Unverified , 07/25/20) Medication History Scheduled Amlodipine Besylate* (Amlodipine Besylate*), 10 MG ORAL DAILY, (Reported) Insulin Degludec (Tresiba Flextouch U-100), 16 UNITS SQ QHS, (Reported) Lisinopril* (Lisinopril*), 80 MG ORAL DAILY, (Reported) Patient History Healthcare decision maker Resuscitation status Advanced Directive on File Patient History Narrative Pmhx: as above Shx: The patient does not smoke or drink alcohol. The patient is single. 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 Fhx: non contributory Review of Systems All Other Systems: negative except mentioned in HPI Physical Exam Physical Exam Narrative GENERAL: The patient is awake and responsive, in no acute distress. HEAD AND NECK: Pupils are equal and reactive to light. Extraocular movements are intact. Neck was supple. No JVD. NG tube in the nasal cavity was noted. LUNGS: Good air entry. No wheezes or rales. HEART: S1, S2. Regular rhythm. No gallops. ABDOMEN: Soft, distended. Drain cath in place with purulent fluid EXTREMITIES: No cyanosis, clubbing, or edema. Last 24 Hour Vital Signs Date Time Temp Pulse Resp B/P (MAP) Pulse Ox O2 Delivery O2 Flow Rate FiO2 07/29/20 12:00 97.6 69 18 159/80 (106) 95 07/29/20 09:00 Room Air 07/29/20 08:00 97.6 59 20 152/75 (100) 96 07/29/20 04:00 98.6 74 17 153/79 (103) 95 07/28/20 21:00 Room Air 07/28/20 20:00 98.4 78 16 155/93 (113) 95 07/28/20 16:00 97.5 72 15 152/84 (106) 98 07/28/20 15:44 64 15 150/83 (105) 99 Intake and Output 0 07/28/20 07/29/20 19:00 07:00 Intake Total 82.5 ml Output Total 200 ml 550 ml Balance -200 ml -467.5 ml Intake IV Total 82.5 ml Output Urine Total 400 ml Gastric Drainage Total 200 ml 150 ml # Voids 4 2 # Bowel Movements 1 Laboratory Tests Test 07/28/20 17:49 07/29/20 00:33 07/29/20 05:05 07/29/20 05:10 POC Whole Blood Glucose Pending 171 MG/DL (74-106) H 152 MG/DL (74-106) H White Blood Count 9.5 K/UL (4.8-10.8) Red Blood Count 3.71 M/UL (4.70-6.10) L Hemoglobin 11.4 G/DL (14.2-18.0) L Hematocrit 34.5 % (42.0-52.0) L Mean Corpuscular Volume 93 FL (80-99) Mean Corpuscular Hemoglobin 30.7 PG (27.0-31.0) Mean Corpuscular Hemoglobin Concent 33.0 G/DL (32.0-36.0) Red Cell Distribution Width 12.8 % (11.6-14.8) Platelet Count 358 K/UL (150-450) Mean Platelet Volume 5.6 FL (6.5-10.1) L Neutrophils (%) (Auto) 72.4 % (45.0-75.0) Lymphocytes (%) (Auto) 14.7 % (20.0-45.0) L Monocytes (%) (Auto) 9.8 % (1.0-10.0) Eosinophils (%) (Auto) 1.8 % (0.0-3.0) Basophils (%) (Auto) 1.3 % (0.0-2.0) Sodium Level 139 MMOL/L (136-145) Potassium Level 4.1 MMOL/L (3.5-5.1) Chloride Level 103 MMOL/L (98-107) Carbon Dioxide Level 28 MMOL/L (21-32) Anion Gap 8 mmol/L (5-15) Blood Urea Nitrogen 12 mg/dL (7-18) Creatinine 1.5 MG/DL (0.55-1.30) H Estimat Glomerular Filtration Rate 58.4 mL/min (>60) Glucose Level 163 MG/DL (74-106) #H Uric Acid 2.6 MG/DL (2.6-7.2) Calcium Level 8.6 MG/DL (8.5-10.1) Phosphorus Level 3.1 MG/DL (2.5-4.9) Magnesium Level 1.9 MG/DL (1.8-2.4) Total Bilirubin 0.4 MG/DL (0.2-1.0) Aspartate Amino Transf (AST/SGOT) 23 U/L (15-37) Alanine Aminotransferase (ALT/SGPT) 23 U/L (12-78) Alkaline Phosphatase 86 U/L (46-116) Total Protein 6.6 G/DL (6.4-8.2) Albumin 2.2 G/DL (3.4-5.0) L Globulin 4.4 g/dL Albumin/Globulin Ratio 0.5 (1.0-2.7) L Test 07/29/20 11:56 POC Whole Blood Glucose 137 MG/DL (74-106) H Microbiology Date/Time Source Procedure Growth Status 07/28/20 15:40 Abdominal Fluid Gram Stain Pending Resulted 07/28/20 15:40 Abdominal Fluid Body Fluid Culture - Preliminary Resulted Height (Feet): 5 Height (Inches): 11.00 Weight (Pounds): 201 Medications Current Medications Medications (Trade) Dose Ordered Sig/Chloe Route PRN Reason Start Time Stop Time Status Last Admin Dose Admin Acetaminophen (Tylenol) 650 mg Q4H PRN RECTAL TEMP and pain 07/25/20 22:15 08/24/20 22:14 07/27/20 12:07 Acetaminophen (Tylenol) 650 mg Q6H PRN ORAL for fever and mild pain 1-3 07/25/20 23:00 08/24/20 22:59 Bisacodyl (Dulcolax) 10 mg HSPRN PRN RECTAL Constipation 07/25/20 22:15 10/23/20 22:14 Dextrose (Dextrose 50%) 25 ml Q30M PRN IV Hypoglycemia 07/26/20 14:30 10/24/20 14:29 Dextrose (Dextrose 50%) 50 ml Q30M PRN IV Hypoglycemia 07/26/20 14:30 10/24/20 14:29 Famotidine (Pepcid I.v.) 20 mg Q12HR IVP 07/26/20 09:00 08/25/20 08:59 07/29/20 07:57 Heparin Sodium (Porcine) (Heparin 5000 units/ml) 5,000 units EVERY 12 HOURS SUBQ 07/26/20 09:30 09/09/20 09:29 07/29/20 07:59 Insulin Aspart (NovoLOG) EVERY 6 HOURS SUBQ 07/26/20 18:00 10/24/20 17:59 07/29/20 00:34 Iohexol (OMNIPAQUE-300 100ml) 100 ml NOW PRN INJ Radiology Procedure 07/28/20 14:00 07/30/20 13:59 Lidocaine HCl (Xylocaine 1% 30ml) 30 ml ONCE PRN INJ CATH PLACEMENT 07/27/20 18:00 07/29/20 17:59 Lorazepam (Ativan 2mg/ml 1ml) 0.5 mg Q4H PRN IV For Anxiety 07/25/20 22:15 08/01/20 22:14 Morphine Sulfate (Morphine Sulfate) 2 mg Q4H PRN IVP moderate to severe pain 4-10 07/25/20 23:00 08/01/20 22:59 07/27/20 04:08 Morphine Sulfate (Morphine Sulfate) 4 mg Q4H PRN IVP Severe Pain (Pain Scale 7-10) 07/25/20 22:15 08/01/20 22:14 07/26/20 17:40 Ondansetron HCl (Zofran) 4 mg Q4H PRN IVP Nausea & Vomiting 07/25/20 23:00 08/24/20 22:59 Piperacillin Sod/ Tazobactam Sod 3.375 gm/Sodium Chloride 110 ml @ 27.5 mls/hr Q8H IVPB 07/26/20 00:00 08/02/20 00:00 07/29/20 15:31 Sodium Bicarbonate (Sodium Bicarbonate 4%) 1 ml NOW PRN IV Radiology Procedure 07/27/20 18:00 07/29/20 17:59 Sodium Chloride 1,000 ml @ 100 mls/hr Q10H IV 07/28/20 13:00 08/27/20 12:59 07/29/20 07:58 Assessment/Plan Assessment/Plan: Abx: Zosyn 07/26- Assessment: COVID19 neg x1 -07/28 rapid COVID PCR neg -07/26 CXR: There is no focal consolidation, pleural effusion, or pneumothorax. Low lung volumes secondary to poor inspiration. Afebrile No leukocytosis Acute perforatated appendicitis c/w Periappendiceal abscess -07/[address] guided drainage: removal of 53 mL purulent fluid -07/28 CT abd/p: Evidence of complicated acute appendicitis, with thickened appendix, and likely 2 periappendiceal abscesses. The more superficial of these appears well organized. The deeper of these appears less well organized. Thickening of the sigmoid wall, probably sympathetic inflammation related to the adjacent periappendiceal inflammation. Incidental finding of subcentimeter low- attenuation liver and renal lesions, too small to characterize, most likely benign simple cysts. Small bilateral pleural effusions. Basilar pulmonary atelectatic changes -07/26 KUB: Diffusely dilated loops of small bowel measuring up to 5.3 cm, concerning for high-grade small bowel obstruction. No free intraperitoneal air however, evaluation is limited on supine views alone. Sapmson's palsy with tinnitus Plan: -Continue empiric Zosyn #4 pending fluid cx -f/u cx -Monitor CBC/CMP, temperatures -GI, Gen sx f/u -aspiration precautions Thank you for this consultation. Will continue to follow along with you. Discussed with STEFANO. Noy Alatorre M.D. Jul 29, 2020 15:52
[2020-07-29 16:00] VITALS: BP 152/86
--- NOTE | 2020-07-29 18:48 | Internal Med Progress Note ---
Subjective Date of Service: Jul 29, 2020 Physician Name Edson Ramirez Attending Physician Richard Zafar MD Current Medications Medications (Trade) Dose Ordered Sig/Chloe Route PRN Reason Start Time Stop Time Status Last Admin Dose Admin Acetaminophen (Tylenol) 650 mg Q4H PRN RECTAL TEMP and pain 07/25/20 22:15 08/24/20 22:14 07/27/20 12:07 Acetaminophen (Tylenol) 650 mg Q6H PRN ORAL for fever and mild pain 1-3 07/25/20 23:00 08/24/20 22:59 Bisacodyl (Dulcolax) 10 mg HSPRN PRN RECTAL Constipation 07/25/20 22:15 10/23/20 22:14 Dextrose (Dextrose 50%) 25 ml Q30M PRN IV Hypoglycemia 07/26/20 14:30 10/24/20 14:29 Dextrose (Dextrose 50%) 50 ml Q30M PRN IV Hypoglycemia 07/26/20 14:30 10/24/20 14:29 Famotidine (Pepcid I.v.) 20 mg Q12HR IVP 07/26/20 09:00 08/25/20 08:59 07/29/20 07:57 Heparin Sodium (Porcine) (Heparin 5000 units/ml) 5,000 units EVERY 12 HOURS SUBQ 07/26/20 09:30 09/09/20 09:29 07/29/20 07:59 Insulin Aspart (NovoLOG) EVERY 6 HOURS SUBQ 07/26/20 18:00 10/24/20 17:59 07/29/20 17:37 Iohexol (OMNIPAQUE-300 100ml) 100 ml NOW PRN INJ Radiology Procedure 07/28/20 14:00 07/30/20 13:59 Lorazepam (Ativan 2mg/ml 1ml) 0.5 mg Q4H PRN IV For Anxiety 07/25/20 22:15 08/01/20 22:14 Morphine Sulfate (Morphine Sulfate) 2 mg Q4H PRN IVP moderate to severe pain 4-10 07/25/20 23:00 08/01/20 22:59 07/27/20 04:08 Morphine Sulfate (Morphine Sulfate) 4 mg Q4H PRN IVP Severe Pain (Pain Scale 7-10) 07/25/20 22:15 08/01/20 22:14 07/26/20 17:40 Ondansetron HCl (Zofran) 4 mg Q4H PRN IVP Nausea & Vomiting 07/25/20 23:00 08/24/20 22:59 Piperacillin Sod/ Tazobactam Sod 3.375 gm/Sodium Chloride 110 ml @ 27.5 mls/hr Q8H IVPB 07/26/20 00:00 08/02/20 00:00 07/29/20 15:31 Sodium Chloride 1,000 ml @ 100 mls/hr Q10H IV 07/28/20 13:00 08/27/20 12:59 07/29/20 07:58 Allergies: Coded Allergies: No Known Allergies (Unverified , 07/25/20) Subjective 59 YO M admitted with nausea, vomiting, abdominal distention and pain. Now small bowel obstruction and perforated appendix. Cover for Int Med-DR Zafar. S/P CT guided drain placement Objective Last Vital Signs Date Time Temp Pulse Resp B/P (MAP) Pulse Ox O2 Delivery O2 Flow Rate FiO2 07/29/20 16:00 98.1 66 20 152/86 (108) 97 07/29/20 09:00 Room Air 07/28/20 15:38 2.0 Laboratory Tests Test 07/29/20 00:33 07/29/20 05:05 07/29/20 05:10 07/29/20 11:56 POC Whole Blood Glucose 171 MG/DL (74-106) H 152 MG/DL (74-106) H 137 MG/DL (74-106) H White Blood Count 9.5 K/UL (4.8-10.8) Red Blood Count 3.71 M/UL (4.70-6.10) L Hemoglobin 11.4 G/DL (14.2-18.0) L Hematocrit 34.5 % (42.0-52.0) L Mean Corpuscular Volume 93 FL (80-99) Mean Corpuscular Hemoglobin 30.7 PG (27.0-31.0) Mean Corpuscular Hemoglobin Concent 33.0 G/DL (32.0-36.0) Red Cell Distribution Width 12.8 % (11.6-14.8) Platelet Count 358 K/UL (150-450) Mean Platelet Volume 5.6 FL (6.5-10.1) L Neutrophils (%) (Auto) 72.4 % (45.0-75.0) Lymphocytes (%) (Auto) 14.7 % (20.0-45.0) L Monocytes (%) (Auto) 9.8 % (1.0-10.0) Eosinophils (%) (Auto) 1.8 % (0.0-3.0) Basophils (%) (Auto) 1.3 % (0.0-2.0) Sodium Level 139 MMOL/L (136-145) Potassium Level 4.1 MMOL/L (3.5-5.1) Chloride Level 103 MMOL/L (98-107) Carbon Dioxide Level 28 MMOL/L (21-32) Anion Gap 8 mmol/L (5-15) Blood Urea Nitrogen 12 mg/dL (7-18) Creatinine 1.5 MG/DL (0.55-1.30) H Estimat Glomerular Filtration Rate 58.4 mL/min (>60) Glucose Level 163 MG/DL (74-106) #H Uric Acid 2.6 MG/DL (2.6-7.2) Calcium Level 8.6 MG/DL (8.5-10.1) Phosphorus Level 3.1 MG/DL (2.5-4.9) Magnesium Level 1.9 MG/DL (1.8-2.4) Total Bilirubin 0.4 MG/DL (0.2-1.0) Aspartate Amino Transf (AST/SGOT) 23 U/L (15-37) Alanine Aminotransferase (ALT/SGPT) 23 U/L (12-78) Alkaline Phosphatase 86 U/L (46-116) Total Protein 6.6 G/DL (6.4-8.2) Albumin 2.2 G/DL (3.4-5.0) L Globulin 4.4 g/dL Albumin/Globulin Ratio 0.5 (1.0-2.7) L Test 07/29/20 17:31 POC Whole Blood Glucose 192 MG/DL (74-106) H Microbiology Date/Time Source Procedure Growth Status 07/28/20 15:40 Abdominal Fluid Gram Stain - Final Resulted 07/28/20 15:40 Abdominal Fluid Body Fluid Culture - Preliminary Resulted 07/28/20 08:22 Nasopharynx SARS-CoV-2 RdRp Gene Assay - Final Complete Intake and Output 07/28/20 07/29/20 19:00 07:00 Intake Total 82.5 ml Output Total 200 ml 550 ml Balance -200 ml -467.5 ml IV Total 82.5 ml Output Urine Total 400 ml Gastric Drainage Total 200 ml 150 ml # Voids 4 2 # Bowel Movements 1 Objective PHYSICAL EXAMINATION: GENERAL: The patient is awake and responsive, in no acute distress. HEAD AND NECK: Pupils are equal and reactive to light. Extraocular movements are intact. Neck was supple. No JVD. NG tube in the nasal cavity was noted. LUNGS: Good air entry. No wheezes or rales. HEART: S1, S2. Regular rhythm. No gallops. ABDOMEN: Soft, distended. Decreased bowel sounds. Tenderness in the lower quadrant, right greater than left. No rebound tenderness. No fluid shift. EXTREMITIES: No cyanosis, clubbing, or edema. NEUROLOGIC: Cranial nerves II through XII grossly normal. Motor is 5/5 in all extremities. Gait was not assessed due to the patient's status. RECTAL/GENITOURINARY: Refused and deferred. PSYCHIATRIC: Mood and affect is intact. Assessment/Plan Assessment/Plan ASSESSMENT: 1. Abdominal pain, 2. perforated appendix/abscess 3. Small bowel obstruction. 4. Acute kidney injury. 5. Severe dehydration and prerenal azotemia. 6. Acute perforated appendicitis. 7. Appendicitis with abscess. PLAN: 1. Admit the patient to the surgical unit. 2. Dr. Vitale = surgical consultation. 3. Code status is Full Code. 4. DVT prophylaxis is heparin subcutaneous. 5. antibiotic = Zosyn. 6. Dr. Dandre Redman=gastroenterology consultation. 7. S/P CT guided drain placed 07/28/20 8. NG removed; tolerating clear liq diet Edson Ramirez MD Jul 29, 2020 18:48
--- NOTE | 2020-07-29 19:20 | NUR ---
NURSE HAND-OFF: Important Events on Shift:[d/c NG tube and started clear liquids] Patient Status: stable Diet: clear liquid Pending Orders: Pending Results/Labs: Pending MD notification: Latest Vital Signs: Temperature 98.1 , Pulse 66 , B/P 152 /86 , Respiratory Rate 20 , O2 SAT 97 , Room Air, O2 Flow Rate 2.0 . Vital Sign Comment: stable Latest Burgess Fall Score: 35 Fall Risk: Medium Risk Safety Measures: Call light Within Reach, Bed Alarm Zone 1, Side Rails Side Rails x2, Bed position Low and Locked. Fall Precautions: Door Sign Patient Fall Education Report given to Diego AGARWAL.
--- NOTE | 2020-07-29 19:30 | NUR ---
NURSE NOTES: Received report from Bernard. RN. Patient seen at bedside sitting in semi [place]'s. Denies any pain as of the moment. In no apparent distress. IV intact and fluids running well. No s/s of infiltration. Uresil bag noted in the RLQ.
--- NOTE | 2020-07-29 19:43 | General Progress Note ---
Subjective Allergies: Coded Allergies: No Known Allergies (Unverified , 07/25/20) Subjective Feels OK s/p IR drainage of abscess feels better (+) BM yesterday Objective Last 24 Hour Vital Signs Date Time Temp Pulse Resp B/P (MAP) Pulse Ox O2 Delivery O2 Flow Rate FiO2 07/29/20 16:00 98.1 66 20 152/86 (108) 97 07/29/20 12:00 97.6 69 18 159/80 (106) 95 07/29/20 09:00 Room Air 07/29/20 08:00 97.6 59 20 152/75 (100) 96 07/29/20 04:00 98.6 74 17 153/79 (103) 95 07/28/20 21:00 Room Air 07/28/20 20:00 98.4 78 16 155/93 (113) 95 Intake and Output 07/28/20 07/29/20 19:00 07:00 Intake Total 82.5 ml Output Total 200 ml 550 ml Balance -200 ml -467.5 ml IV Total 82.5 ml Output Urine Total 400 ml Gastric Drainage Total 200 ml 150 ml # Voids 4 2 # Bowel Movements 1 Laboratory Tests 07/29/20 00:33: POC Whole Blood Glucose 171H 07/29/20 05:05: White Blood Count 9.5, Red Blood Count 3.71L, Hemoglobin 11.4L, Hematocrit 34.5L , Mean Corpuscular Volume 93, Mean Corpuscular Hemoglobin 30.7, Mean Corpuscular Hemoglobin Concent 33.0, Red Cell Distribution Width 12.8, Platelet Count 358, Mean Platelet Volume 5.6L, Neutrophils (%) (Auto) 72.4, Lymphocytes (%) (Auto) 14.7L, Monocytes (%) (Auto) 9.8, Eosinophils (%) (Auto) 1.8, Basophils (%) (Auto) 1.3, Sodium Level 139, Potassium Level 4.1, Chloride Level 103, Carbon Dioxide Level 28, Anion Gap 8, Blood Urea Nitrogen 12, Creatinine 1.5H, Estimat Glomerular Filtration Rate 58.4, Glucose Level 163#H, Uric Acid 2.6, Calcium Level 8.6, Phosphorus Level 3.1, Magnesium Level 1.9, Total Bilirubin 0.4, Aspartate Amino Transf (AST/SGOT) 23, Alanine Aminotransferase (ALT/SGPT) 23, Alkaline Phosphatase 86, Total Protein 6.6, Albumin 2.2L, Globulin 4.4, Albumin/Globulin Ratio 0.5L 07/29/20 05:10: POC Whole Blood Glucose 152H 07/29/20 11:56: POC Whole Blood Glucose 137H 07/29/20 17:31: POC Whole Blood Glucose 192H Height (Feet): 5 Height (Inches): 11.00 Weight (Pounds): 201 Objective WDWN man NCAT supple CTA RR abd softer, (+) drain, less TTP no edema Assessment/Plan Assessment/Plan: Assessment - Perforated appy - multiple abd abscesses - Ileus - resolved - Azotemia - DM Recommendations - broad spectrum abx - agree with Zosyn - advance diet - IVF, follow Cr and lytes - SQ heparin - follow abscess drainage Dandre Redman MD Jul 29, 2020 19:43
[2020-07-29 20:00] VITALS: BP 158/79
[2020-07-29] MEDS: Lisinopril 20mg tab ORAL SCH (21:59)
[2020-07-30] VITALS: BP 150/75
[2020-07-30 05:21] LABS: BASOPHILS % (AUTO) 0.8 % (0.0-2.0); EOSINOPHILS % (AUTO) 1.2 % (0.0-3.0); HEMATOCRIT 36.4 % (42.0-52.0); LYMPHOCYTES % (AUTO) 8.9 % (20.0-45.0); MEAN CORPUSCULAR VOLUME 93 FL (80-99); MONOCYTES % (AUTO) 7.8 % (1.0-10.0); NEUTROPHILS % (AUTO) 81.3 % (45.0-75.0); PLATELET COUNT 375 K/UL (150-450); RED BLOOD COUNT 3.92 M/UL (4.70-6.10); RED CELL DISTRIBUTION WIDTH 12.8 % (11.6-14.8); WHITE BLOOD COUNT 11.7 K/UL (4.8-10.8)
[2020-07-30 05:44] LABS: ALANINE AMINOTRANSFERASE 22 U/L (12-78); ALBUMIN 2.3 G/DL (3.4-5.0); ALBUMIN/GLOBULIN RATIO 0.6 (1.0-2.7); ALKALINE PHOSPHATASE 96 U/L (46-116); ASPARTATE AMINO TRANSFERASE 29 U/L (15-37); BILIRUBIN,TOTAL 0.4 MG/DL (0.2-1.0); BLOOD UREA NITROGEN 10 mg/dL (7-18); CALCIUM 8.7 MG/DL (8.5-10.1); CHLORIDE 100 MMOL/L (98-107); CREATININE 1.4 MG/DL (0.55-1.30); POTASSIUM 4.2 MMOL/L (3.5-5.1); SODIUM 136 MMOL/L (136-145)
[2020-07-30 06:04] LABS: CARBON DIOXIDE 27 MMOL/L (21-32)
[2020-07-30] MEDS: NovoLOG Insulin Flexpen SUBQ SCH ×4 (06:09→21:23)
--- NOTE | 2020-07-30 06:31 | NUR ---
NURSE HAND-OFF: Important Events on Shift:ambulated around bedroom multiple times, had a BM, resumed home meds (lisinopril and amlodipine), accucheck changed schedule to [facility] Patient Status: stable Diet: clear liquids Pending Orders: [] Pending Results/Labs:[] Pending MD notification:[] Latest Vital Signs: Temperature 98.8 , Pulse 70 , B/P 150 /75 , Respiratory Rate 20 , O2 SAT 97 , Room Air, O2 Flow Rate 2.0 . Vital Sign Comment: [] Latest Burgess Fall Score: 35 Fall Risk: Medium Risk Safety Measures: Call light Within Reach, Bed Alarm Zone 1, Side Rails Side Rails x2, Bed position Low and Locked. Fall Precautions: Door Sign Patient Fall Education Report given to [].
[2020-07-30] MEDS: Piperacillin/Tazobactam 3.375 GM in NS 110 ML IVPB SCH ×3 (07:00→23:22)
--- NOTE | 2020-07-30 07:40 | NUR ---
NURSE NOTES: Received report from STEFANO Cortez. Pt asleep in bed on RA. Breathing even and unlabored. No acute distress noted. IV intact and patent running IVF as ordered. Uresil bag noted in the RLQ intact. Bed in low position and locked. Call light within reach. Will continue to monitor.
[2020-07-30 08:00] VITALS: BP 138/77
[2020-07-30] MEDS: Lisinopril 20mg tab ORAL SCH ×2 (08:49→20:46)
[2020-07-30] MEDS: Heparin 5000 units/ml inj SUBQ SCH ×2 (08:51→21:22)
--- NOTE | 2020-07-30 08:51 | NUR ---
RD ASSESSMENT & RECOMMENDATIONS SEE CARE ACTIVITY FOR COMPLETE ASSESSMENT DAILY ESTIMATED NEEDS: Needs based on GI 81.9 abw 25-30 kcals/kg 9133-4435 total kcals 1-1.5 g protein/kg 82-123 g total protein 25-30 mL/kg 3154-9225 total fluid mLs NUTRITION DIAGNOSIS: Altered GI fxn r/t perforated appendix/abscess, SBO, s/p removal of NGT, now on CLD. CURRENT DIET: CLD PO DIET RECOMMENDATIONS: Advance as able to [facility] MED / SOFT diet as able per MD ADDITIONAL RECOMMENDATIONS: 1) Monitor tolerance to diet 2) Monitor BG, need for additional hypoglycemics, diet change 3) Standing weight as able 4) Lytes daily
[2020-07-30] MEDS ORDERED: Lisinopril 20mg tab ORAL SCH (09:00)
--- NOTE | 2020-07-30 09:55 | NUR ---
CASE MANAGEMENT:REVIEW SI;ACUTE PERFORATED APPENDICITIS . ABDOMINAL ABSCESSES. SBO. 98.8 70 20 158/79 97% ON RA WBC 11.7 CR 1.4 BG 215 CRP 14.8 ALB 2.3 IS;IVF NS @ 100 ML/HR HEPARIN SUBQ Q8 PEPCID IV Q12 MED SURG STATUS DCP;PATIENT IS FROM HOME PLAN; ON CLEARS ADVANCE DIET TOLERATED
--- NOTE | 2020-07-30 10:10 | NUR ---
INSURANCE CLINICALS AND REVIEW FAXED TO [facility] P: [phone] F: [phone]
--- NOTE | 2020-07-30 10:40 | Pulmonology Progress Note ---
Subjective ROS Limited/Unobtainable: No Interval Events: little drainage in bag Allergies: Coded Allergies: No Known Allergies (Unverified , 07/25/20) Objective Last 24 Hour Vital Signs Date Time Temp Pulse Resp B/P (MAP) Pulse Ox O2 Delivery O2 Flow Rate FiO2 07/30/20 08:50 70 139/75 07/30/20 08:49 139/77 07/30/20 08:00 97.1 86 20 138/77 (97) 97 07/30/20 00:00 98.8 70 20 150/75 (100) 97 07/29/20 21:59 158/79 07/29/20 21:59 67 158/79 07/29/20 21:00 Room Air 07/29/20 20:00 98.7 67 20 158/79 (105) 97 07/29/20 16:00 98.1 66 20 152/86 (108) 97 07/29/20 12:00 97.6 69 18 159/80 (106) 95 Intake and Output 07/29/20 07/30/20 19:00 07:00 Intake Total 650 ml 700 ml Output Total 985 ml 855 ml Balance -335 ml -155 ml Intake Oral 650 ml 700 ml Output Urine Total 975 ml 850 ml Other 10 ml 5 ml # Voids 4 3 General Appearance: WD/WN HEENT: normocephalic, atraumatic Respiratory: chest wall non-tender, lungs clear Cardiovascular: normal peripheral pulses, normal rate Abdomen: normal bowel sounds, soft, non tender Genitourinary: normal external genitalia Extremities: no cyanosis Skin: no rash 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8, Platelet Count 375, Mean Platelet Volume 5.3L, Neutrophils (%) (Auto) 81.3H, Lymphocytes (%) (Auto) 8.9L, Monocytes (%) (Auto) 7.8, Eosinophils (%) (Auto) 1.2, Basophils (%) (Auto) 0.8, Erythrocyte Sedimentation Rate 85H, Sodium Level 136, Potassium Level 4.2, Chloride Level 100, Carbon Dioxide Level 27, Blood Urea Nitrogen 10, Creatinine 1.4H, Estimat Glomerular Filtration Rate > 60, Glucose Level 215H, Calcium Level 8.7, Phosphorus Level 3.0, Magnesium Level 1.8, Total Bilirubin 0.4, Aspartate Amino Transf (AST/SGOT) 29, Alanine Aminotransferase (ALT/SGPT) 22, Alkaline Phosphatase 96, C-Reactive Protein, Quantitative 14.8H, Total Protein 6.0L, Albumin 2.3L, Globulin 3.7, Albumin/Globulin Ratio 0.6L Current Medications Medications (Trade) Dose Ordered Sig/Chloe Route PRN Reason Start Time Stop Time Status Last Admin Dose Admin Acetaminophen (Tylenol) 650 mg Q4H PRN RECTAL TEMP and pain 07/25/20 22:15 08/24/20 22:14 07/27/20 12:07 Acetaminophen (Tylenol) 650 mg Q6H PRN ORAL for fever and mild pain 1-3 07/25/20 23:00 08/24/20 22:59 Amlodipine Besylate (Norvasc) 10 mg DAILY ORAL 07/29/20 22:00 08/29/20 21:59 07/30/20 08:50 Bisacodyl (Dulcolax) 10 mg HSPRN PRN RECTAL Constipation 07/25/20 22:15 10/23/20 22:14 Dextrose (Dextrose 50%) 25 ml Q30M PRN IV Hypoglycemia 07/26/20 14:30 10/24/20 14:29 Dextrose (Dextrose 50%) 50 ml Q30M PRN IV Hypoglycemia 07/26/20 14:30 10/24/20 14:29 Famotidine (Pepcid I.v.) 20 mg Q12HR IVP 07/26/20 09:00 08/25/20 08:59 07/30/20 08:49 Heparin Sodium (Porcine) (Heparin 5000 units/ml) 5,000 units EVERY 12 HOURS SUBQ 07/26/20 09:30 09/09/20 09:29 07/30/20 08:51 Insulin Aspart (NovoLOG) AC+HS SUBQ 07/30/20 06:30 10/24/20 17:59 07/30/20 06:09 Iohexol (OMNIPAQUE-300 100ml) 100 ml NOW PRN INJ Radiology Procedure 07/28/20 14:00 07/30/20 13:59 Lisinopril (PriniviL) 40 mg Q12HR ORAL 07/29/20 22:00 08/28/20 21:59 07/30/20 08:49 Lorazepam (Ativan 2mg/ml 1ml) 0.5 mg Q4H PRN IV For Anxiety 07/25/20 22:15 08/01/20 22:14 Morphine Sulfate (Morphine Sulfate) 2 mg Q4H PRN IVP moderate to severe pain 4-10 07/25/20 23:00 08/01/20 22:59 07/27/20 04:08 Morphine Sulfate (Morphine Sulfate) 4 mg Q4H PRN IVP Severe Pain (Pain Scale 7-10) 07/25/20 22:15 08/01/20 22:14 07/26/20 17:40 Ondansetron HCl (Zofran) 4 mg Q4H PRN IVP Nausea & Vomiting 07/25/20 23:00 08/24/20 22:59 Piperacillin Sod/ Tazobactam Sod 3.375 gm/Sodium Chloride 110 ml @ 27.5 mls/hr Q8H IVPB 07/26/20 00:00 08/02/20 00:00 07/30/20 07:00 Sodium Chloride 1,000 ml @ 100 mls/hr Q10H IV 07/28/20 13:00 08/27/20 12:59 07/29/20 20:00 Assessment/Plan Problems: (1) Acute perforated appendicitis (2) History of hypertension (3) History of diabetes mellitus Assessment/Plan check cultures, Gram positive Cocci iv abx ID note appreciated sliding scale diabetic diet monitor BP dvt prophylaxis. Chu Keith MD Jul 30, 2020 10:40
[2020-07-30 12:00] VITALS: BP 158/91
--- NOTE | 2020-07-30 12:31 | Infectious Diseases Prog Note ---
Assessment/Plan Assessment: COVID19 neg x1 -07/28 rapid COVID PCR neg -07/26 CXR: There is no focal consolidation, pleural effusion, or pneumothorax. Low lung volumes secondary to poor inspiration. Afebrile Mild leukocytosis Acute perforatated appendicitis c/w Periappendiceal abscess -07/[address] guided drainage: removal of 53 mL purulent fluid --cx GNR, GPC -07/28 CT abd/p: Evidence of complicated acute appendicitis, with thickened appendix, and likely 2 periappendiceal abscesses. The more superficial of these appears well organized. The deeper of these appears less well organized. Thickening of the sigmoid wall, probably sympathetic inflammation related to the adjacent periappendiceal inflammation. Incidental finding of subcentimeter low- attenuation liver and renal lesions, too small to characterize, most likely be nign simple cysts. Small bilateral pleural effusions. Basilar pulmonary atelectatic changes -07/26 KUB: Diffusely dilated loops of small bowel measuring up to 5.3 cm, concerning for high-grade small bowel obstruction. No free intraperitoneal air however, evaluation is limited on supine views alone. Sampson's palsy with tinnitus Plan: -Continue empiric Zosyn #5 and add PO Zyvox pending fluid cx -f/u cx -Monitor CBC/CMP, temperatures -GI, Gen sx f/u -aspiration precautions Thank you for this consultation. Will continue to follow along with you. Discussed with RN. Subjective Allergies: Coded Allergies: No Known Allergies (Unverified , 07/25/20) afebrile wbc improving mild leukocytosis Objective Last 24 Hour Vital Signs Date Time Temp Pulse Resp B/P (MAP) Pulse Ox O2 Delivery O2 Flow Rate FiO2 07/30/20 09:00 Room Air 07/30/20 08:50 70 139/75 07/30/20 08:49 139/77 07/30/20 08:00 97.1 86 20 138/77 (97) 97 07/30/20 00:00 98.8 70 20 150/75 (100) 97 07/29/20 21:59 158/79 07/29/20 21:59 67 158/79 07/29/20 21:00 Room Air 07/29/20 20:00 98.7 67 20 158/79 (105) 97 07/29/20 16:00 98.1 66 20 152/86 (108) 97 Height (Feet): 5 Height (Inches): 11.00 Weight (Pounds): 201 GENERAL: The patient is awake and responsive, in no acute distress. HEAD AND NECK: Pupils are equal and reactive to light. Extraocular movements are intact. Neck was supple. LUNGS: Good air entry. No wheezes or rales. HEART: S1, S2. Regular rhythm. No gallops. ABDOMEN: Soft, distended. Drain cath in place with purulent fluid EXTREMITIES: No cyanosis, clubbing, or edema. Microbiology Date/Time Source Procedure Growth Status 07/28/20 15:40 Abdominal Fluid Gram Stain - Final Resulted 07/28/20 15:40 Body Fluid Culture - Preliminary Gram Positive Cocci Gram Negative Bacillus 1 Resulted 07/28/20 08:22 Nasopharynx SARS-CoV-2 RdRp Gene Assay - Final Complete Laboratory Tests Test 07/29/20 17:31 07/30/20 04:50 07/30/20 11:51 POC Whole Blood Glucose 192 MG/DL (74-106) H Pending White Blood Count 11.7 K/UL (4.8-10.8) H Red Blood Count 3.92 M/UL (4.70-6.10) L Hemoglobin 12.0 G/DL (14.2-18.0) L Hematocrit 36.4 % (42.0-52.0) L Mean Corpuscular Volume 93 FL (80-99) Mean Corpuscular Hemoglobin 30.7 PG (27.0-31.0) Mean Corpuscular Hemoglobin Concent 33.0 G/DL (32.0-36.0) Red Cell Distribution Width 12.8 % (11.6-14.8) Platelet Count 375 K/UL (150-450) Mean Platelet Volume 5.3 FL (6.5-10.1) L Neutrophils (%) (Auto) 81.3 % (45.0-75.0) H Lymphocytes (%) (Auto) 8.9 % (20.0-45.0) L Monocytes (%) (Auto) 7.8 % (1.0-10.0) Eosinophils (%) (Auto) 1.2 % (0.0-3.0) Basophils (%) (Auto) 0.8 % (0.0-2.0) Erythrocyte Sedimentation Rate 85 MM/HR (0-20) H Sodium Level 136 MMOL/L (136-145) Potassium Level 4.2 MMOL/L (3.5-5.1) Chloride Level 100 MMOL/L (98-107) Carbon Dioxide Level 27 MMOL/L (21-32) Blood Urea Nitrogen 10 mg/dL (7-18) Creatinine 1.4 MG/DL (0.55-1.30) H Estimat Glomerular Filtration Rate > 60 mL/min (>60) Glucose Level 215 MG/DL (74-106) H Calcium Level 8.7 MG/DL (8.5-10.1) Phosphorus Level 3.0 MG/DL (2.5-4.9) Magnesium Level 1.8 MG/DL (1.8-2.4) Total Bilirubin 0.4 MG/DL (0.2-1.0) Aspartate Amino Transf (AST/SGOT) 29 U/L (15-37) Alanine Aminotransferase (ALT/SGPT) 22 U/L (12-78) Alkaline Phosphatase 96 U/L (46-116) C-Reactive Protein, Quantitative 14.8 mg/dL (0.00-0.90) H Total Protein 6.0 G/DL (6.4-8.2) L Albumin 2.3 G/DL (3.4-5.0) L Globulin 3.7 g/dL Albumin/Globulin Ratio 0.6 (1.0-2.7) L Current Medications Medications (Trade) Dose Ordered Sig/Chloe Route PRN Reason Start Time Stop Time Status Last Admin Dose Admin Acetaminophen (Tylenol) 650 mg Q4H PRN RECTAL TEMP and pain 07/25/20 22:15 08/24/20 22:14 07/27/20 12:07 Acetaminophen (Tylenol) 650 mg Q6H PRN ORAL for fever and mild pain 1-3 07/25/20 23:00 08/24/20 22:59 Amlodipine Besylate (Norvasc) 10 mg DAILY ORAL 07/29/20 22:00 08/29/20 21:59 07/30/20 08:50 Bisacodyl (Dulcolax) 10 mg HSPRN PRN RECTAL Constipation 07/25/20 22:15 10/23/20 22:14 Dextrose (Dextrose 50%) 25 ml Q30M PRN IV Hypoglycemia 07/26/20 14:30 10/24/20 14:29 Dextrose (Dextrose 50%) 50 ml Q30M PRN IV Hypoglycemia 07/26/20 14:30 10/24/20 14:29 Famotidine (Pepcid I.v.) 20 mg Q12HR IVP 07/26/20 09:00 08/25/20 08:59 07/30/20 08:49 Heparin Sodium (Porcine) (Heparin 5000 units/ml) 5,000 units EVERY 12 HOURS SUBQ 07/26/20 09:30 09/09/20 09:29 07/30/20 08:51 Insulin Aspart (NovoLOG) AC+HS SUBQ 07/30/20 06:30 10/24/20 17:59 07/30/20 11:54 Iohexol (OMNIPAQUE-300 100ml) 100 ml NOW PRN INJ Radiology Procedure 07/28/20 14:00 07/30/20 13:59 Lisinopril (PriniviL) 40 mg Q12HR ORAL 07/29/20 22:00 08/28/20 21:59 07/30/20 08:49 Lorazepam (Ativan 2mg/ml 1ml) 0.5 mg Q4H PRN IV For Anxiety 07/25/20 22:15 08/01/20 22:14 Morphine Sulfate (Morphine Sulfate) 2 mg Q4H PRN IVP moderate to severe pain 4-10 07/25/20 23:00 08/01/20 22:59 07/27/20 04:08 Morphine Sulfate (Morphine Sulfate) 4 mg Q4H PRN IVP Severe Pain (Pain Scale 7-10) 07/25/20 22:15 08/01/20 22:14 07/26/20 17:40 Ondansetron HCl (Zofran) 4 mg Q4H PRN IVP Nausea & Vomiting 07/25/20 23:00 08/24/20 22:59 Piperacillin Sod/ Tazobactam Sod 3.375 gm/Sodium Chloride 110 ml @ 27.5 mls/hr Q8H IVPB 07/26/20 00:00 08/02/20 00:00 07/30/20 07:00 Sodium Chloride 1,000 ml @ 100 mls/hr Q10H IV 07/28/20 13:00 08/27/20 12:59 07/30/20 11:28 Noy Alatorre M.D. Jul 30, 2020 12:31
--- NOTE | 2020-07-30 12:35 | Nephrology Progress Note ---
Assessment/Plan Problem List: (1) Renal failure (ARF), acute on chronic (2) History of hypertension (3) History of diabetes mellitus (4) Hyponatremia Assessment: Resolved Assessment Renal failure with serum creatinine of 1.7 on admission today 1.5 GI pathology: Acute perforated appendicitis, appendicitis with abscess Possible small bowel obstruction Diabetes mellitus Hyponatremia Plan July 30: Remains on a clear liquid diet. Labs reviewed. Serum creatinine at the lowest. Electrolytes within normal limit. Continue per consultants. Previously: Now on clear liquids NG tube is now discontinued Avoid nephrotoxic's, monitor renal parameters and electrolytes IV fluids, change IV to isotonic solution IV antibiotics Subjective ROS Limited/Unobtainable: No Constitutional: Reports: malaise Objective Objective Last 24 Hour Vital Signs Date Time Temp Pulse Resp B/P (MAP) Pulse Ox O2 Delivery O2 Flow Rate FiO2 07/30/20 09:00 Room Air 07/30/20 08:50 70 139/75 07/30/20 08:49 139/77 07/30/20 08:00 97.1 86 20 138/77 (97) 97 07/30/20 00:00 98.8 70 20 150/75 (100) 97 07/29/20 21:59 158/79 07/29/20 21:59 67 158/79 07/29/20 21:00 Room Air 07/29/20 20:00 98.7 67 20 158/79 (105) 97 07/29/20 16:00 98.1 66 20 152/86 (108) 97 Intake and Output 07/29/20 07/30/20 19:00 07:00 Intake Total 650 ml 700 ml Output Total 985 ml 855 ml Balance -335 ml -155 ml Intake Oral 650 ml 700 ml Output Urine Total 975 ml 850 ml Other 10 ml 5 ml # Voids 4 3 Current Medications Medications (Trade) Dose Ordered Sig/Chloe Route PRN Reason Start Time Stop Time Status Last Admin Dose Admin Acetaminophen (Tylenol) 650 mg Q4H PRN RECTAL TEMP and pain 07/25/20 22:15 08/24/20 22:14 07/27/20 12:07 Acetaminophen (Tylenol) 650 mg Q6H PRN ORAL for fever and mild pain 1-3 07/25/20 23:00 08/24/20 22:59 Amlodipine Besylate (Norvasc) 10 mg DAILY ORAL 07/29/20 22:00 08/29/20 21:59 07/30/20 08:50 Bisacodyl (Dulcolax) 10 mg HSPRN PRN RECTAL Constipation 07/25/20 22:15 10/23/20 22:14 Dextrose (Dextrose 50%) 25 ml Q30M PRN IV Hypoglycemia 07/26/20 14:30 10/24/20 14:29 Dextrose (Dextrose 50%) 50 ml Q30M PRN IV Hypoglycemia 07/26/20 14:30 10/24/20 14:29 Famotidine (Pepcid I.v.) 20 mg Q12HR IVP 07/26/20 09:00 08/25/20 08:59 07/30/20 08:49 Heparin Sodium (Porcine) (Heparin 5000 units/ml) 5,000 units EVERY 12 HOURS SUBQ 07/26/20 09:30 09/09/20 09:29 07/30/20 08:51 Insulin Aspart (NovoLOG) AC+HS SUBQ 07/30/20 06:30 10/24/20 17:59 07/30/20 11:54 Iohexol (OMNIPAQUE-300 100ml) 100 ml NOW PRN INJ Radiology Procedure 07/28/20 14:00 07/30/20 13:59 Linezolid (Zyvox) 600 mg EVERY 12 HOURS ORAL 07/30/20 12:30 08/04/20 12:29 UNV Lisinopril (PriniviL) 40 mg Q12HR ORAL 07/29/20 22:00 08/28/20 21:59 07/30/20 08:49 Lorazepam (Ativan 2mg/ml 1ml) 0.5 mg Q4H PRN IV For Anxiety 07/25/20 22:15 08/01/20 22:14 Morphine Sulfate (Morphine Sulfate) 2 mg Q4H PRN IVP moderate to severe pain 4-10 07/25/20 23:00 08/01/20 22:59 07/27/20 04:08 Morphine Sulfate (Morphine Sulfate) 4 mg Q4H PRN IVP Severe Pain (Pain Scale 7-10) 07/25/20 22:15 08/01/20 22:14 07/26/20 17:40 Ondansetron HCl (Zofran) 4 mg Q4H PRN IVP Nausea & Vomiting 07/25/20 23:00 08/24/20 22:59 Piperacillin Sod/ Tazobactam Sod 3.375 gm/Sodium Chloride 110 ml @ 27.5 mls/hr Q8H IVPB 07/26/20 00:00 08/02/20 00:00 07/30/20 07:00 Sodium Chloride 1,000 ml @ 100 mls/hr Q10H IV 07/28/20 13:00 08/27/20 12:59 07/30/20 11:28 Laboratory Tests 07/29/20 17:31: POC Whole Blood Glucose 192H 07/30/20 04:50: White Blood Count 11.7H, Red Blood Count 3.92L, Hemoglobin 12.0L, Hematocrit 36.4L, Mean Corpuscular Volume 93, Mean Corpuscular Hemoglobin 30.7, Mean Corpuscular Hemoglobin Concent 33.0, Red Cell Distribution Width 12.8, Platelet Count 375, Mean Platelet Volume 5.3L, Neutrophils (%) (Auto) 81.3H, Lymphocytes (%) (Auto) 8.9L, Monocytes (%) (Auto) 7.8, Eosinophils (%) (Auto) 1.2, Basophils (%) (Auto) 0.8, Erythrocyte Sedimentation Rate 85H, Sodium Level 136, Potassium Level 4.2, Chloride Level 100, Carbon Dioxide Level 27, Blood Urea Nitrogen 10, Creatinine 1.4H, Estimat Glomerular Filtration Rate > 60, Glucose Level 215H, Calcium Level 8.7, Phosphorus Level 3.0, Magnesium Level 1.8, Total Bilirubin 0.4, Aspartate Amino Transf (AST/SGOT) 29, Alanine Aminotransferase (ALT/SGPT) 22, Alkaline Phosphatase 96, C-Reactive Protein, Quantitative 14.8H, Total Protein 6.0L, Albumin 2.3L, Globulin 3.7, Albumin/Globulin Ratio 0.6L 07/30/20 11:51: POC Whole Blood Glucose [Pending] Height (Feet): 5 Height (Inches): 11.00 Weight (Pounds): 201 General Appearance: no apparent distress Cardiovascular: normal rate Respiratory/Chest: decreased breath sounds Abdomen: distended Rico Patel MD Jul 30, 2020 12:34
--- NOTE | 2020-07-30 13:04 | Internal Med Progress Note ---
Subjective Date of Service: Jul 30, 2020 Physician Name Edson Ramirez Attending Physician Richard Zafar MD Current Medications Medications (Trade) Dose Ordered Sig/Chloe Route PRN Reason Start Time Stop Time Status Last Admin Dose Admin Acetaminophen (Tylenol) 650 mg Q4H PRN RECTAL TEMP and pain 07/25/20 22:15 08/24/20 22:14 07/27/20 12:07 Acetaminophen (Tylenol) 650 mg Q6H PRN ORAL for fever and mild pain 1-3 07/25/20 23:00 08/24/20 22:59 Amlodipine Besylate (Norvasc) 10 mg DAILY ORAL 07/29/20 22:00 08/29/20 21:59 07/30/20 08:50 Bisacodyl (Dulcolax) 10 mg HSPRN PRN RECTAL Constipation 07/25/20 22:15 10/23/20 22:14 Dextrose (Dextrose 50%) 25 ml Q30M PRN IV Hypoglycemia 07/26/20 14:30 10/24/20 14:29 Dextrose (Dextrose 50%) 50 ml Q30M PRN IV Hypoglycemia 07/26/20 14:30 10/24/20 14:29 Famotidine (Pepcid I.v.) 20 mg Q12HR IVP 07/26/20 09:00 08/25/20 08:59 07/30/20 08:49 Heparin Sodium (Porcine) (Heparin 5000 units/ml) 5,000 units EVERY 12 HOURS SUBQ 07/26/20 09:30 09/09/20 09:29 07/30/20 08:51 Insulin Aspart (NovoLOG) AC+HS SUBQ 07/30/20 06:30 10/24/20 17:59 07/30/20 11:54 Iohexol (OMNIPAQUE-300 100ml) 100 ml NOW PRN INJ Radiology Procedure 07/28/20 14:00 07/30/20 13:59 Linezolid (Zyvox) 600 mg EVERY 12 HOURS ORAL 07/30/20 13:00 08/04/20 12:59 Lisinopril (PriniviL) 40 mg Q12HR ORAL 07/29/20 22:00 08/28/20 21:59 07/30/20 08:49 Lorazepam (Ativan 2mg/ml 1ml) 0.5 mg Q4H PRN IV For Anxiety 07/25/20 22:15 08/01/20 22:14 Morphine Sulfate (Morphine Sulfate) 2 mg Q4H PRN IVP moderate to severe pain 4-10 07/25/20 23:00 08/01/20 22:59 07/27/20 04:08 Morphine Sulfate (Morphine Sulfate) 4 mg Q4H PRN IVP Severe Pain (Pain Scale 7-10) 07/25/20 22:15 08/01/20 22:14 07/26/20 17:40 Ondansetron HCl (Zofran) 4 mg Q4H PRN IVP Nausea & Vomiting 07/25/20 23:00 08/24/20 22:59 Piperacillin Sod/ Tazobactam Sod 3.375 gm/Sodium Chloride 110 ml @ 27.5 mls/hr Q8H IVPB 07/26/20 00:00 08/02/20 00:00 07/30/20 07:00 Sodium Chloride 1,000 ml @ 100 mls/hr Q10H IV 07/28/20 13:00 08/27/20 12:59 07/30/20 11:28 Allergies: Coded Allergies: No Known Allergies (Unverified , 07/25/20) ROS Limited/Unobtainable: No Constitutional: Reports: no symptoms HEENT: Reports: no symptoms Cardiovascular: Reports: no symptoms Respiratory: Reports: no symptoms Gastrointestinal/Abdominal: Reports: abdominal pain Genitourinary: Reports: no symptoms Neurologic/Psychiatric: Reports: no symptoms Subjective 59 YO M admitted with nausea, vomiting, abdominal distention and pain. Now small bowel obstruction and perforated appendix. Cover for Int Jeffrey-DR Zafar. S/P CT guided drain placement Objective Last Vital Signs Date Time Temp Pulse Resp B/P (MAP) Pulse Ox O2 Delivery O2 Flow Rate FiO2 07/30/20 09:00 Room Air 07/30/20 08:50 70 139/75 07/30/20 08:00 97.1 20 97 07/28/20 15:38 2.0 Laboratory Tests Test 07/29/20 17:31 07/30/20 04:50 07/30/20 11:51 POC Whole Blood Glucose 192 MG/DL (74-106) H Pending White Blood Count 11.7 K/UL (4.8-10.8) H Red Blood Count 3.92 M/UL (4.70-6.10) L Hemoglobin 12.0 G/DL (14.2-18.0) L Hematocrit 36.4 % (42.0-52.0) L Mean Corpuscular Volume 93 FL (80-99) Mean Corpuscular Hemoglobin 30.7 PG (27.0-31.0) Mean Corpuscular Hemoglobin Concent 33.0 G/DL (32.0-36.0) Red Cell Distribution Width 12.8 % (11.6-14.8) Platelet Count 375 K/UL (150-450) Mean Platelet Volume 5.3 FL (6.5-10.1) L Neutrophils (%) (Auto) 81.3 % (45.0-75.0) H Lymphocytes (%) (Auto) 8.9 % (20.0-45.0) L Monocytes (%) (Auto) 7.8 % (1.0-10.0) Eosinophils (%) (Auto) 1.2 % (0.0-3.0) Basophils (%) (Auto) 0.8 % (0.0-2.0) Erythrocyte Sedimentation Rate 85 MM/HR (0-20) H Sodium Level 136 MMOL/L (136-145) Potassium Level 4.2 MMOL/L (3.5-5.1) Chloride Level 100 MMOL/L (98-107) Carbon Dioxide Level 27 MMOL/L (21-32) Blood Urea Nitrogen 10 mg/dL (7-18) Creatinine 1.4 MG/DL (0.55-1.30) H Estimat Glomerular Filtration Rate > 60 mL/min (>60) Glucose Level 215 MG/DL (74-106) H Calcium Level 8.7 MG/DL (8.5-10.1) Phosphorus Level 3.0 MG/DL (2.5-4.9) Magnesium Level 1.8 MG/DL (1.8-2.4) Total Bilirubin 0.4 MG/DL (0.2-1.0) Aspartate Amino Transf (AST/SGOT) 29 U/L (15-37) Alanine Aminotransferase (ALT/SGPT) 22 U/L (12-78) Alkaline Phosphatase 96 U/L (46-116) C-Reactive Protein, Quantitative 14.8 mg/dL (0.00-0.90) H Total Protein 6.0 G/DL (6.4-8.2) L Albumin 2.3 G/DL (3.4-5.0) L Globulin 3.7 g/dL Albumin/Globulin Ratio 0.6 (1.0-2.7) L Microbiology Date/Time Source Procedure Growth Status 07/28/20 15:40 Abdominal Fluid Gram Stain - Final Resulted 07/28/20 15:40 Body Fluid Culture - Preliminary Gram Positive Cocci Gram Negative Bacillus 1 Resulted 07/28/20 08:22 Nasopharynx SARS-CoV-2 RdRp Gene Assay - Final Complete Intake and Output 07/29/20 07/30/20 19:00 07:00 Intake Total 650 ml 700 ml Output Total 985 ml 855 ml Balance -335 ml -155 ml Intake Oral 650 ml 700 ml Output Urine Total 975 ml 850 ml Other 10 ml 5 ml # Voids 4 3 Objective PHYSICAL EXAMINATION: GENERAL: The patient is awake and responsive, in no acute distress. HEAD AND NECK: Pupils are equal and reactive to light. Extraocular movements are intact. Neck was supple. No JVD. NG tube in the nasal cavity was noted. LUNGS: Good air entry. No wheezes or rales. HEART: S1, S2. Regular rhythm. No gallops. ABDOMEN: Soft, distended. Decreased bowel sounds. Tenderness in the lower quadrant, right greater than left. No rebound tenderness. No fluid shift. EXTREMITIES: No cyanosis, clubbing, or edema. NEUROLOGIC: Cranial nerves II through XII grossly normal. Motor is 5/5 in all extremities. Gait was not assessed due to the patient's status. RECTAL/GENITOURINARY: Refused and deferred. PSYCHIATRIC: Mood and affect is intact. Assessment/Plan Assessment/Plan ASSESSMENT: 1. Abdominal pain, 2. perforated appendix/abscess 3. Small bowel obstruction-resolved 4. Acute kidney injury. 5. Severe dehydration and prerenal azotemia. 6. Acute perforated appendicitis. 7. Appendicitis with abscess. PLAN: 1. Admit the patient to the surgical unit. 2. Dr. Vitale = surgical consultation. 3. Code status is Full Code. 4. DVT prophylaxis is heparin subcutaneous. 5. antibiotic = Zosyn and zyvox 6. Dr. Dandre Redman=gastroenterology consultation. 7. S/P CT guided drain placed 07/28/20 8. NG removed; tolerating clear liq diet Edson Ramirez MD Jul 30, 2020 13:04
[2020-07-30 14:55] LABS: ANION GAP 8 mmol/L (5-15); BLOOD UREA NITROGEN 10 mg/dL (7-18); CALCIUM 9.2 MG/DL (8.5-10.1); CARBON DIOXIDE 28 MMOL/L (21-32); CHLORIDE 101 MMOL/L (98-107); CREATININE 1.4 MG/DL (0.55-1.30); POTASSIUM 5.3 MMOL/L (3.5-5.1); SODIUM 137 MMOL/L (136-145)
[2020-07-30 16:00] VITALS: BP 148/80
--- NOTE | 2020-07-30 17:05 | Surgery Progress Note ---
Surgery Progress Note Subjective Symptoms: improved, tolerating diet, voiding well, passing flatus, BM Additional Comments wbc noted micro noted plan transition to oral abx and d/c outpt follow up interval appy Objective Last 24 Hour Vital Signs Date Time Temp Pulse Resp B/P (MAP) Pulse Ox O2 Delivery O2 Flow Rate FiO2 07/30/20 16:00 97.0 78 20 148/80 (102) 99 07/30/20 12:00 98.0 77 20 158/91 (113) 99 07/30/20 09:00 Room Air 07/30/20 08:50 70 139/75 07/30/20 08:49 139/77 07/30/20 08:00 97.1 86 20 138/77 (97) 97 07/30/20 00:00 98.8 70 20 150/75 (100) 97 07/29/20 21:59 158/79 07/29/20 21:59 67 158/79 07/29/20 21:00 Room Air 07/29/20 20:00 98.7 67 20 158/79 (105) 97 I&O Intake and Output 07/29/20 07/30/20 19:00 07:00 Intake Total 650 ml 700 ml Output Total 985 ml 855 ml Balance -335 ml -155 ml Intake Oral 650 ml 700 ml Output Urine Total 975 ml 850 ml Other 10 ml 5 ml # Voids 4 3 Dressing: dry Wound: clean Drains: other Cardiovascular: RSR Respiratory: clear Abdomen: soft, flat, non-tender, present bowel sounds Extremities: no edema, no tenderness, no cyanosis Laboratory Tests Test 07/29/20 17:31 07/30/20 04:50 07/30/20 11:51 07/30/20 14:30 POC Whole Blood Glucose 192 MG/DL (74-106) H Pending White Blood Count 11.7 K/UL (4.8-10.8) H Red Blood Count 3.92 M/UL (4.70-6.10) L Hemoglobin 12.0 G/DL (14.2-18.0) L Hematocrit 36.4 % (42.0-52.0) L Mean Corpuscular Volume 93 FL (80-99) Mean Corpuscular Hemoglobin 30.7 PG (27.0-31.0) Mean Corpuscular Hemoglobin Concent 33.0 G/DL (32.0-36.0) Red Cell Distribution Width 12.8 % (11.6-14.8) Platelet Count 375 K/UL (150-450) Mean Platelet Volume 5.3 FL (6.5-10.1) L Neutrophils (%) (Auto) 81.3 % (45.0-75.0) H Lymphocytes (%) (Auto) 8.9 % (20.0-45.0) L Monocytes (%) (Auto) 7.8 % (1.0-10.0) Eosinophils (%) (Auto) 1.2 % (0.0-3.0) Basophils (%) (Auto) 0.8 % (0.0-2.0) Erythrocyte Sedimentation Rate 85 MM/HR (0-20) H Sodium Level 136 MMOL/L (136-145) 137 MMOL/L (136-145) Potassium Level 4.2 MMOL/L (3.5-5.1) 5.3 MMOL/L (3.5-5.1) H Chloride Level 100 MMOL/L (98-107) 101 MMOL/L (98-107) Carbon Dioxide Level 27 MMOL/L (21-32) 28 MMOL/L (21-32) Blood Urea Nitrogen 10 mg/dL (7-18) 10 mg/dL (7-18) Creatinine 1.4 MG/DL (0.55-1.30) H 1.4 MG/DL (0.55-1.30) H Estimat Glomerular Filtration Rate > 60 mL/min (>60) > 60 mL/min (>60) Glucose Level 215 MG/DL (74-106) H 185 MG/DL (74-106) H Calcium Level 8.7 MG/DL (8.5-10.1) 9.2 MG/DL (8.5-10.1) Phosphorus Level 3.0 MG/DL (2.5-4.9) Magnesium Level 1.8 MG/DL (1.8-2.4) Total Bilirubin 0.4 MG/DL (0.2-1.0) Aspartate Amino Transf (AST/SGOT) 29 U/L (15-37) Alanine Aminotransferase (ALT/SGPT) 22 U/L (12-78) Alkaline Phosphatase 96 U/L (46-116) C-Reactive Protein, Quantitative 14.8 mg/dL (0.00-0.90) H Total Protein 6.0 G/DL (6.4-8.2) L Albumin 2.3 G/DL (3.4-5.0) L Globulin 3.7 g/dL Albumin/Globulin Ratio 0.6 (1.0-2.7) L Anion Gap 8 mmol/L (5-15) Plan Problems: (1) Small bowel obstruction (2) Appendicitis with abscess (3) Acute perforated appendicitis Assessment & Plan: 59 male abdominal pain 6 days currently afebrile hemodynamic stable no leukocytosis mild elevated renal insufficiency. Distended no bowel function for a few days decreased appetite CT identified to sick centimeter fluid collections small 2 to 3 cm right lower quadrant fluid collection no appendix visualized stranding in the mesenteric root and the right lower quadrant on examination focal right lower quadrant tenderness. Clinical picture is consistent with likely acute perforated appendicitis with abscess formation. Ileus likely subsequent to inflammatory intra-abdominal process and unlikely obstructed Will need further work-up and care planning. Other etiologies include small bowel obstruction resulting fluid collection or translocation abscess formation. Potential intra-abdominal abscess formation. N.p.o. Okay for ice chips and sips of water for patient's comfort IV fluids IV antibiotics Continue NG tube for the meantime low intermittent suction Rx as written Activity as tolerated We will discussed with radiology for consideration of interventional IR drainage of abscess Discussed with patient extended length of stay likely 5 to 7 days potentially mo re if necessary. Thank you for let me participate in patient's care will follow with recommendations improving +bowel function ng output decreased abd exam improved labs noted s/p "iR drain of abscess 07/28 ng removed start diet diet as tolerated cont drain transition to oral abx for d/c trend labs outpatient f/u for drain removal and consideration of interval Waldemar Bhatt Jul 30, 2020 17:05
--- NOTE | 2020-07-30 19:24 | NUR ---
NURSE NOTES: Received report from Michelle Pantoja RN. Patient in stable condition, seen sitting in highfowler's in the bed. In no apparent distress. Denies any pain as of the moment. Will continue to monitor.
--- NOTE | 2020-07-30 19:42 | NUR ---
NURSE HAND-OFF: Important Events on Shift:[Tolerated clear liquid, advanced to Full liquid] Patient Status: [stable] Diet: [full liquid] Pending Orders: [] Pending Results/Labs:[] Pending MD notification:[] Latest Vital Signs: Temperature 97.0 , Pulse 78 , B/P 148 /80 , Respiratory Rate 20 , O2 SAT 99 , Room Air, O2 Flow Rate 2.0 . Vital Sign Comment: [] Latest Burgess Fall Score: 35 Fall Risk: Medium Risk Safety Measures: Call light Within Reach, Bed Alarm Zone 1, Side Rails Side Rails x2, Bed position Low and Locked. Fall Precautions: Door Sign Patient Fall Education Report given to [STEFANO Cortez].
[2020-07-30 20:00] VITALS: BP 155/80
--- NOTE | 2020-07-30 22:29 | General Progress Note ---
Subjective Allergies: Coded Allergies: No Known Allergies (Unverified , 07/25/20) Subjective Feels OK s/p IR drainage of abscess feels better (+) BM yesterday Objective Last 24 Hour Vital Signs Date Time Temp Pulse Resp B/P (MAP) Pulse Ox O2 Delivery O2 Flow Rate FiO2 07/30/20 21:00 Room Air 07/30/20 20:46 155/80 07/30/20 20:00 97.8 67 20 155/80 (105) 97 07/30/20 16:00 97.0 78 20 148/80 (102) 99 07/30/20 12:00 98.0 77 20 158/91 (113) 99 07/30/20 09:00 Room Air 07/30/20 08:50 70 139/75 07/30/20 08:49 139/77 07/30/20 08:00 97.1 86 20 138/77 (97) 97 07/30/20 00:00 98.8 70 20 150/75 (100) 97 Intake and Output 07/29/20 07/30/20 19:00 07:00 Intake Total 650 ml 700 ml Output Total 985 ml 855 ml Balance -335 ml -155 ml Intake Oral 650 ml 700 ml Output Urine Total 975 ml 850 ml Other 10 ml 5 ml # Voids 4 3 Laboratory Tests 07/30/20 04:50: White Blood Count 11.7H, Red Blood Count 3.92L, Hemoglobin 12.0L, Hematocrit 36.4L, Mean Corpuscular Volume 93, Mean Corpuscular Hemoglobin 30.7, Mean Corpuscular Hemoglobin Concent 33.0, Red Cell Distribution Width 12.8, Platelet Count 375, Mean Platelet Volume 5.3L, Neutrophils (%) (Auto) 81.3H, Lymphocytes (%) (Auto) 8.9L, Monocytes (%) (Auto) 7.8, Eosinophils (%) (Auto) 1.2, Basophils (%) (Auto) 0.8, Erythrocyte Sedimentation Rate 85H, Sodium Level 136, Potassium Level 4.2, Chloride Level 100, Carbon Dioxide Level 27, Blood Urea Nitrogen 10, Creatinine 1.4H, Estimat Glomerular Filtration Rate > 60, Glucose Level 215H, Calcium Level 8.7, Phosphorus Level 3.0, Magnesium Level 1.8, Total Bilirubin 0.4, Aspartate Amino Transf (AST/SGOT) 29, Alanine Aminotransferase (ALT/SGPT) 22, Alkaline Phosphatase 96, C-Reactive Protein, Quantitative 14.8H, Total Protein 6.0L, Albumin 2.3L, Globulin 3.7, Albumin/Globulin Ratio 0.6L 07/30/20 11:51: POC Whole Blood Glucose [Pending] 07/30/20 14:30: Sodium Level 137, Potassium Level 5.3H, Chloride Level 101, Carbon Dioxide Level 28, Blood Urea Nitrogen 10, Creatinine 1.4H, Estimat Glomerular Filtration Rate > 60, Glucose Level 185H, Calcium Level 9.2, Anion Gap 8 07/30/20 16:36: POC Whole Blood Glucose [Pending] 07/30/20 21:20: POC Whole Blood Glucose 147H Height (Feet): 5 Height (Inches): 11.00 Weight (Pounds): 201 Objective WDWN man NCAT supple CTA RR abd softer, (+) drain, less TTP no edema Assessment/Plan Assessment/Plan: Assessment - Perforated appy - multiple abd abscesses - Ileus - resolved - Azotemia - DM Recommendations - broad spectrum abx - agree with Zosyn - diet per surgery - IVF, follow Cr and lytes - SQ heparin - follow abscess drainage Dandre Redman MD Jul 30, 2020 22:29
[2020-07-31] VITALS: BP 151/80
--- NOTE | 2020-07-31 00:48 | NUR ---
NURSE NOTES: Report given to Cameron AGARWAL.
--- NOTE | 2020-07-31 00:51 | NUR ---
NURSE NOTES: Received patient in no apparent distress. A&OX4. IV site patent and intact. Bed in lowest position. Call light within reach. Will continue to monitor.
[2020-07-31 04:00] VITALS: BP 155/77
[2020-07-31] MEDS: NovoLOG Insulin Flexpen SUBQ SCH ×3 (06:11→17:14)
[2020-07-31 07:12] LABS: BASOPHILS % (AUTO) 0.2 % (0.0-2.0); HEMATOCRIT 34.4 % (42.0-52.0); HEMOGLOBIN 11.5 G/DL (14.2-18.0); LYMPHOCYTES % (AUTO) 17.8 % (20.0-45.0); MEAN CORPUSCULAR VOLUME 92 FL (80-99); NEUTROPHILS % (AUTO) 71.1 % (45.0-75.0); PLATELET COUNT 418 K/UL (150-450); RED BLOOD COUNT 3.73 M/UL (4.70-6.10); WHITE BLOOD COUNT 8.5 K/UL (4.8-10.8)
--- NOTE | 2020-07-31 07:29 | NUR ---
NURSE HAND-OFF: Important Events on Shift: Patient Status: Diet: Full Liquid Pending Orders: Pending Results/Labs: Pending MD notification: Latest Vital Signs: Temperature 98.2 , Pulse 77 , B/P 155 /77 , Respiratory Rate 20 , O2 SAT 96 , Room Air, O2 Flow Rate 2.0 . Vital Sign Comment: Latest Burgess Fall Score: 35 Fall Risk: Medium Risk Safety Measures: Call light Within Reach, Bed Alarm Zone 1, Side Rails Side Rails x2, Bed position Low and Locked. Fall Precautions: Door Sign Patient Fall Education Report given to Minerva AGARWAL.
--- NOTE | 2020-07-31 07:30 | NUR ---
NURSE NOTES: Patient is in bed awake and able to verbalize needs. Stable. Denies pain or SOB. Patient instructed to use call light for assistance, verbalized understanding. All safety measures provided. uresil noted, will monitor output. Patient is in bed in locked and lowest position with call light within reach. All needs met at this time. Will continue to monitor.
[2020-07-31 07:42] LABS: ALANINE AMINOTRANSFERASE 26 U/L (12-78); ALBUMIN 2.2 G/DL (3.4-5.0); ALBUMIN/GLOBULIN RATIO 0.6 (1.0-2.7); ALKALINE PHOSPHATASE 84 U/L (46-116); ANION GAP 8 mmol/L (5-15); ASPARTATE AMINO TRANSFERASE 29 U/L (15-37); BILIRUBIN,TOTAL 0.3 MG/DL (0.2-1.0); BLOOD UREA NITROGEN 10 mg/dL (7-18); CALCIUM 8.2 MG/DL (8.5-10.1); CARBON DIOXIDE 27 MMOL/L (21-32); CHLORIDE 102 MMOL/L (98-107); CREATININE 1.4 MG/DL (0.55-1.30); PHOSPHORUS 3.1 MG/DL (2.5-4.9); POTASSIUM 3.8 MMOL/L (3.5-5.1); SODIUM 136 MMOL/L (136-145)
[2020-07-31 08:00] VITALS: BP 98/62
[2020-07-31] MEDS: Lisinopril 20mg tab ORAL SCH (09:00)
[2020-07-31] MEDS: Piperacillin/Tazobactam 3.375 GM in NS 110 ML IVPB SCH ×2 (09:10→15:48)
[2020-07-31] MEDS: Heparin 5000 units/ml inj SUBQ SCH (09:15)
--- NOTE | 2020-07-31 11:23 | Nephrology Progress Note ---
Assessment/Plan Problem List: (1) Renal failure (ARF), acute on chronic (2) History of hypertension (3) History of diabetes mellitus (4) Hyponatremia Assessment: Resolved Assessment Renal failure with serum creatinine of 1.7 on admission today 1.5 GI pathology: Acute perforated appendicitis, appendicitis with abscess Possible small bowel obstruction Diabetes mellitus Hyponatremia Plan July 31: Status quo. Labs reviewed. Renal parameters are stable. Continue per consultants. July 30: Remains on a clear liquid diet. Labs reviewed. Serum creatinine at the lowest. Electrolytes within normal limit. Continue per consultants. Previously: Now on clear liquids NG tube is now discontinued Avoid nephrotoxic's, monitor renal parameters and electrolytes IV fluids, change IV to isotonic solution IV antibiotics Subjective ROS Limited/Unobtainable: No Constitutional: Reports: malaise Objective Objective Last 24 Hour Vital Signs Date Time Temp Pulse Resp B/P (MAP) Pulse Ox O2 Delivery O2 Flow Rate FiO2 07/31/20 09:00 Room Air 07/31/20 08:00 98.2 77 20 98/62 (74) 96 07/31/20 04:00 98.2 77 20 155/77 (103) 96 07/31/20 00:00 98.0 65 20 151/80 (103) 99 07/30/20 21:00 Room Air 07/30/20 20:46 155/80 07/30/20 20:00 97.8 67 20 155/80 (105) 97 07/30/20 16:00 97.0 78 20 148/80 (102) 99 07/30/20 12:00 98.0 77 20 158/91 (113) 99 Intake and Output 07/30/20 07/31/20 19:00 07:00 Intake Total 890 ml 1690.0 ml Output Total 300 ml 770 ml Balance 590 ml 920.0 ml Intake Oral 790 ml 480 ml IV Total 100 ml 1210.0 ml Output Urine Total 300 ml 750 ml Other 20 ml # Voids 4 4 # Bowel Movements 1 Laboratory Tests 07/30/20 11:51: POC Whole Blood Glucose [Pending] 07/30/20 14:30: Sodium Level 137, Potassium Level 5.3H, Chloride Level 101, Carbon Dioxide Level 28, Anion Gap 8, Blood Urea Nitrogen 10, Creatinine 1.4H, Estimat Glomerular Filtration Rate > 60, Glucose Level 185H, Calcium Level 9.2 07/30/20 16:36: POC Whole Blood Glucose [Pending] 07/30/20 21:20: POC Whole Blood Glucose 147H 07/31/20 05:35: White Blood Count 8.5, Red Blood Count 3.73L, Hemoglobin 11.5L, Hematocrit 34.4L , Mean Corpuscular Volume 92, Mean Corpuscular Hemoglobin 30.8, Mean Corpuscular Hemoglobin Concent 33.4, Red Cell Distribution Width 13.0, Platelet Count 418, Mean Platelet Volume 5.0L, Neutrophils (%) (Auto) 71.1, Lymphocytes (%) (Auto) 17.8L, Monocytes (%) (Auto) 9.0, Eosinophils (%) (Auto) 2.0, Basophils (%) (Auto) 0.2, Sodium Level 136, Potassium Level 3.8, Chloride Level 102, Carbon Dioxide Level 27, Anion Gap 8, Blood Urea Nitrogen 10, Creatinine 1.4H, Estimat Glomerular Filtration Rate > 60, Glucose Level 146H, Uric Acid 2.3L, Calcium [place] 8.2L, Phosphorus Level 3.1, Magnesium Level 1.9, Total Bilirubin 0.3, Aspartate Amino Transf (AST/SGOT) 29, Alanine Aminotransferase (ALT/SGPT) 26, Alkaline Phosphatase 84, C-Reactive Protein, Quantitative 7.5H, Total Protein 5.6L, Albumin 2.2L, Globulin 3.4, Albumin/Globulin Ratio 0.6L 07/31/20 06:07: POC Whole Blood Glucose 145H Height (Feet): 5 Height (Inches): 11.00 Weight (Pounds): 201 Rico Patel MD Jul 31, 2020 11:23
--- NOTE | 2020-07-31 11:49 | Surgery Progress Note ---
Surgery Progress Note Subjective Symptoms: improved, tolerating diet, voiding well, passing flatus, BM, pain decreased Objective Last 24 Hour Vital Signs Date Time Temp Pulse Resp B/P (MAP) Pulse Ox O2 Delivery O2 Flow Rate FiO2 07/31/20 09:00 Room Air 07/31/20 08:00 98.2 77 20 98/62 (74) 96 07/31/20 04:00 98.2 77 20 155/77 (103) 96 07/31/20 00:00 98.0 65 20 151/80 (103) 99 07/30/20 21:00 Room Air 07/30/20 20:46 155/80 07/30/20 20:00 97.8 67 20 155/80 (105) 97 07/30/20 16:00 97.0 78 20 148/80 (102) 99 07/30/20 12:00 98.0 77 20 158/91 (113) 99 I&O Intake and Output 07/30/20 07/31/20 19:00 07:00 Intake Total 890 ml 1690.0 ml Output Total 300 ml 770 ml Balance 590 ml 920.0 ml Intake Oral 790 ml 480 ml IV Total 100 ml 1210.0 ml Output Urine Total 300 ml 750 ml Other 20 ml # Voids 4 4 # Bowel Movements 1 Dressing: dry Wound: clean Drains: other Cardiovascular: RSR Respiratory: clear Abdomen: soft, flat, non-tender, present bowel sounds, other, non-distended Extremities: no edema, no tenderness, no cyanosis Laboratory Tests Test 07/30/20 11:51 07/30/20 14:30 07/30/20 16:36 07/30/20 21:20 POC Whole Blood Glucose Pending Pending 147 MG/DL (74-106) H Sodium Level 137 MMOL/L (136-145) Potassium Level 5.3 MMOL/L (3.5-5.1) H Chloride Level 101 MMOL/L (98-107) Carbon Dioxide Level 28 MMOL/L (21-32) Anion Gap 8 mmol/L (5-15) Blood Urea Nitrogen 10 mg/dL (7-18) Creatinine 1.4 MG/DL (0.55-1.30) H Estimat Glomerular Filtration Rate > 60 mL/min (>60) Glucose Level 185 MG/DL (74-106) H Calcium Level 9.2 MG/DL (8.5-10.1) Test 07/31/20 05:35 07/31/20 06:07 White Blood Count 8.5 K/UL (4.8-10.8) Red Blood Count 3.73 M/UL (4.70-6.10) L Hemoglobin 11.5 G/DL (14.2-18.0) L Hematocrit 34.4 % (42.0-52.0) L Mean Corpuscular Volume 92 FL (80-99) Mean Corpuscular Hemoglobin 30.8 PG (27.0-31.0) Mean Corpuscular Hemoglobin Concent 33.4 G/DL (32.0-36.0) Red Cell Distribution Width 13.0 % (11.6-14.8) Platelet Count 418 K/UL (150-450) Mean Platelet Volume 5.0 FL (6.5-10.1) L Neutrophils (%) (Auto) 71.1 % (45.0-75.0) Lymphocytes (%) (Auto) 17.8 % (20.0-45.0) L Monocytes (%) (Auto) 9.0 % (1.0-10.0) Eosinophils (%) (Auto) 2.0 % (0.0-3.0) Basophils (%) (Auto) 0.2 % (0.0-2.0) Sodium Level 136 MMOL/L (136-145) Potassium Level 3.8 MMOL/L (3.5-5.1) Chloride Level 102 MMOL/L (98-107) Carbon Dioxide Level 27 MMOL/L (21-32) Anion Gap 8 mmol/L (5-15) Blood Urea Nitrogen 10 mg/dL (7-18) Creatinine 1.4 MG/DL (0.55-1.30) H Estimat Glomerular Filtration Rate > 60 mL/min (>60) Glucose Level 146 MG/DL (74-106) H Uric Acid 2.3 MG/DL (2.6-7.2) L Calcium Level 8.2 MG/DL (8.5-10.1) L Phosphorus Level 3.1 MG/DL (2.5-4.9) Magnesium Level 1.9 MG/DL (1.8-2.4) Total Bilirubin 0.3 MG/DL (0.2-1.0) Aspartate Amino Transf (AST/SGOT) 29 U/L (15-37) Alanine Aminotransferase (ALT/SGPT) 26 U/L (12-78) Alkaline Phosphatase 84 U/L (46-116) C-Reactive Protein, Quantitative 7.5 mg/dL (0.00-0.90) H Total Protein 5.6 G/DL (6.4-8.2) L Albumin 2.2 G/DL (3.4-5.0) L Globulin 3.4 g/dL Albumin/Globulin Ratio 0.6 (1.0-2.7) L POC Whole Blood Glucose 145 MG/DL (74-106) H Plan Problems: (1) Small bowel obstruction (2) Appendicitis with abscess (3) Acute perforated appendicitis Assessment & Plan: 59 male abdominal pain 6 days currently afebrile hemodynamic stable no leukocytosis mild elevated renal insufficiency. Distended no bowel function for a few days decreased appetite CT identified to sick centimeter fluid collections small 2 to 3 cm right lower quadrant fluid collection no appendix visualized stranding in the mesenteric root and the right lower quadrant on examination focal right lower quadrant tenderness. Clinical picture is consistent with likely acute perforated appendicitis with a bscess formation. Ileus likely subsequent to inflammatory intra-abdominal process and unlikely obstructed Will need further work-up and care planning. Other etiologies include small bowel obstruction resulting fluid collection or translocation abscess formation. Potential intra-abdominal abscess formation. N.p.o. Okay for ice chips and sips of water for patient's comfort IV fluids IV antibiotics Continue NG tube for the meantime low intermittent suction Rx as written Activity as tolerated We will discussed with radiology for consideration of interventional IR drainage of abscess Discussed with patient extended length of stay likely 5 to 7 days potentially more if necessary. Thank you for let me participate in patient's care will follow with recommendations improving +bowel function ng output decreased abd exam improved labs noted s/p "iR drain of abscess 07/28 ng removed start diet diet as tolerated cont drain transition to oral abx for d/c trend labs outpatient f/u for drain removal and consideration of interval appy Discharge home surgical standpoint Antibiotics oral as per infectious disease Outpatient follow-up August 06 at 10 AM for drain removal Care instructions given to patient in detail at bedside Waldemar Vitale Jul 31, 2020 11:49
[2020-07-31 12:00] VITALS: BP 128/87
--- NOTE | 2020-07-31 12:01 | Pulmonology Progress Note ---
Subjective ROS Limited/Unobtainable: No Interval Events: little drainage in bag Constitutional: Reports: no symptoms HEENT: Repors: no symptoms Allergies: Coded Allergies: No Known Allergies (Unverified , 07/25/20) Objective Last 24 Hour Vital Signs Date Time Temp Pulse Resp B/P (MAP) Pulse Ox O2 Delivery O2 Flow Rate FiO2 07/31/20 09:00 Room Air 07/31/20 08:00 98.2 77 20 98/62 (74) 96 07/31/20 04:00 98.2 77 20 155/77 (103) 96 07/31/20 00:00 98.0 65 20 151/80 (103) 99 07/30/20 21:00 Room Air 07/30/20 20:46 155/80 07/30/20 20:00 97.8 67 20 155/80 (105) 97 07/30/20 16:00 97.0 78 20 148/80 (102) 99 Intake and Output 07/30/20 07/31/20 19:00 07:00 Intake Total 890 ml 1690.0 ml Output Total 300 ml 770 ml Balance 590 ml 920.0 ml Intake Oral 790 ml 480 ml IV Total 100 ml 1210.0 ml Output Urine Total 300 ml 750 ml Other 20 ml # Voids 4 4 # Bowel Movements 1 General Appearance: WD/WN HEENT: normocephalic, atraumatic Respiratory: chest wall non-tender, lungs clear Cardiovascular: normal peripheral pulses, normal rate Abdomen: normal bowel sounds, soft, non tender Genitourinary: normal external genitalia Extremities: no cyanosis Skin: no rash 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 II-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 grossly normal Microbiology Date/Time Source Procedure Growth Status 07/28/20 15:40 Abdominal Fluid Gram Stain - Final Complete 07/28/20 15:40 Body Fluid Culture - Final Streptococcus Group C Escherichia Coli Complete Laboratory Tests 07/30/20 14:30: Sodium Level 137, Potassium Level 5.3H, Chloride Level 101, Carbon Dioxide Level 28, Anion Gap 8, Blood Urea Nitrogen 10, Creatinine 1.4H, Estimat Glomerular F iltration Rate > 60, Glucose Level 185H, Calcium Level 9.2 07/30/20 16:36: POC Whole Blood Glucose [Pending] 07/30/20 21:20: POC Whole Blood Glucose 147H 07/31/20 05:35: Sodium Level 136, Potassium Level 3.8, Chloride Level 102, Carbon Dioxide Level 27, Anion Gap 8, Blood Urea Nitrogen 10, Creatinine 1.4H, Estimat Glomerular Filtration Rate > 60, Glucose Level 146H, Calcium Level 8.2L, White Blood Count 8.5, Red Blood Count 3.73L, Hemoglobin 11.5L, Hematocrit 34.4L, Mean Corpuscular Volume 92, Mean Corpuscular Hemoglobin 30.8, Mean Corpuscular Hemoglobin Concent 33.4, Red Cell Distribution Width 13.0, Platelet Count 418, Mean Platelet Volume 5.0L, Neutrophils (%) (Auto) 71.1, Lymphocytes (%) (Auto) 17.8L, Monocytes (%) (Auto) 9.0, Eosinophils (%) (Auto) 2.0, Basophils (%) (Auto) 0.2, Uric Acid 2.3L, Phosphorus Level 3.1, Magnesium Level 1.9, Total Bilirubin 0.3, Aspartate Amino Transf (AST/SGOT) 29, Alanine Aminotransferase (ALT/SGPT) 26, Alkaline Phosphatase 84, C-Reactive Protein, Quantitative 7.5H, Total Protein 5.6L, Albumin 2.2L, Globulin 3.4, Albumin/Globulin Ratio 0.6L 07/31/20 06:07: POC Whole Blood Glucose 145H Current Medications Medications (Trade) Dose Ordered Sig/Chloe Route PRN Reason Start Time Stop Time Status Last Admin Dose Admin Acetaminophen (Tylenol) 650 mg Q4H PRN RECTAL TEMP and pain 07/25/20 22:15 08/24/20 22:14 07/27/20 12:07 Acetaminophen (Tylenol) 650 mg Q6H PRN ORAL for fever and mild pain 1-3 07/25/20 23:00 08/24/20 22:59 Amlodipine Besylate (Norvasc) 10 mg DAILY ORAL 07/29/20 22:00 08/29/20 21:59 07/30/20 08:50 Bisacodyl (Dulcolax) 10 mg HSPRN PRN RECTAL Constipation 07/25/20 22:15 10/23/20 22:14 Dextrose (Dextrose 50%) 25 ml Q30M PRN IV Hypoglycemia 07/26/20 14:30 10/24/20 14:29 Dextrose (Dextrose 50%) 50 ml Q30M PRN IV Hypoglycemia 07/26/20 14:30 10/24/20 14:29 Famotidine (Pepcid I.v.) 20 mg Q12HR IVP 07/26/20 09:00 08/25/20 08:59 07/31/20 09:10 Heparin Sodium (Porcine) (Heparin 5000 units/ml) 5,000 units EVERY 12 HOURS SUBQ 07/26/20 09:30 09/09/20 09:29 07/31/20 09:15 Insulin Aspart (NovoLOG) AC+HS SUBQ 07/30/20 06:30 10/24/20 17:59 07/31/20 11:44 Linezolid (Zyvox) 600 mg EVERY 12 HOURS ORAL 07/30/20 13:00 08/04/20 12:59 07/31/20 09:10 Lisinopril (PriniviL) 40 mg Q12HR ORAL 07/29/20 22:00 08/28/20 21:59 07/30/20 20:46 Lorazepam (Ativan 2mg/ml 1ml) 0.5 mg Q4H PRN IV For Anxiety 07/25/20 22:15 08/01/20 22:14 Morphine Sulfate (Morphine Sulfate) 2 mg Q4H PRN IVP moderate to severe pain 4-10 07/25/20 23:00 08/01/20 22:59 07/27/20 04:08 Morphine Sulfate (Morphine Sulfate) 4 mg Q4H PRN IVP Severe Pain (Pain Scale 7-10) 07/25/20 22:15 08/01/20 22:14 07/26/20 17:40 Ondansetron HCl (Zofran) 4 mg Q4H PRN IVP Nausea & Vomiting 07/25/20 23:00 08/24/20 22:59 Piperacillin Sod/ Tazobactam Sod 3.375 gm/Sodium Chloride 110 ml @ 27.5 mls/hr Q8H IVPB 07/26/20 00:00 08/02/20 00:00 07/31/20 09:10 Sodium Chloride 1,000 ml @ 100 mls/hr Q10H IV 07/28/20 13:00 08/27/20 12:59 07/31/20 09:16 Assessment/Plan Problems: (1) Acute perforated appendicitis (2) History of hypertension (3) History of diabetes mellitus Assessment/Plan check cultures, Gram positive Cocci and Ecoli, pansensitive iv abx watch electrolytes sliding scale diabetic diet monitor BP dvt prophylaxis. Chu Keith MD Jul 31, 2020 12:01
--- NOTE | 2020-07-31 13:53 | Infectious Diseases Prog Note ---
Assessment/Plan Assessment: COVID19 neg x1 -07/28 rapid COVID PCR neg -07/26 CXR: There is no focal consolidation, pleural effusion, or pneumothorax. Low lung volumes secondary to poor inspiration. Afebrile Mild leukocytosis, SP Acute perforatated appendicitis c/w Periappendiceal abscess -07/[address] guided drainage: removal of 53 mL purulent fluid --cx E. coli (hassan S), Group C Strep -07/28 CT abd/p: Evidence of complicated acute appendicitis, with thickened appendix, and likely 2 periappendiceal abscesses. The more superficial of these appears well organized. The deeper of these appears less well organized. Thickening of the sigmoid wall, probably sympathetic inflammation related to the adjacent periappendiceal inflammation. Incidental finding of subcentimeter low- attenuation liver and renal lesions, too small to characterize, most likely benign simple cysts. Small bilateral pleural effusions. Basilar pulmonary atelectatic changes -07/26 KUB: Diffusely dilated loops of small bowel measuring up to 5.3 cm, concerning for high-grade small bowel obstruction. No free intraperitoneal air however, evaluation is limited on supine views alone. Sampson's palsy with tinnitus Plan: -On empiric Zosyn #6 and add PO Zyvox #2 -ok to discharge on PO Augmentin 875/125mg bid for 9 more days -f/u cx -Monitor CBC/CMP, temperatures -GI, Gen sx f/u -aspiration precautions Thank you for this consultation. Will continue to follow along with you. Discussed with RN. Subjective Allergies: Coded Allergies: No Known Allergies (Unverified , 07/25/20) afebrile mild leukocytosis resolved tolerating full liquid diet discharge planning Objective Last 24 Hour Vital Signs Date Time Temp Pulse Resp B/P (MAP) Pulse Ox O2 Delivery O2 Flow Rate FiO2 07/31/20 12:00 97.5 70 20 128/87 (101) 96 07/31/20 09:00 Room Air 07/31/20 08:00 98.2 77 20 98/62 (74) 96 07/31/20 04:00 98.2 77 20 155/77 (103) 96 07/31/20 00:00 98.0 65 20 151/80 (103) 99 07/30/20 21:00 Room Air 07/30/20 20:46 155/80 07/30/20 20:00 97.8 67 20 155/80 (105) 97 07/30/20 16:00 97.0 78 20 148/80 (102) 99 Height (Feet): 5 Height (Inches): 11.00 Weight (Pounds): 201 GENERAL: The patient is awake and responsive, in no acute distress. HEAD AND NECK: Pupils are equal and reactive to light. Extraocular movements are intact. Neck was supple. LUNGS: Good air entry. No wheezes or rales. HEART: S1, S2. Regular rhythm. No gallops. ABDOMEN: Soft, distended. Drain cath in place with purulent fluid EXTREMITIES: No cyanosis, clubbing, or edema. Microbiology Date/Time Source Procedure Growth Status 07/28/20 15:40 Abdominal Fluid Gram Stain - Final Complete 07/28/20 15:40 Body Fluid Culture - Final Streptococcus Group C Escherichia Coli Complete Laboratory Tests Test 07/30/20 14:30 07/30/20 16:36 07/30/20 21:20 07/31/20 05:35 Sodium Level 137 MMOL/L (136-145) 136 MMOL/L (136-145) Potassium Level 5.3 MMOL/L (3.5-5.1) H 3.8 MMOL/L (3.5-5.1) Chloride Level 101 MMOL/L (98-107) 102 MMOL/L (98-107) Carbon Dioxide Level 28 MMOL/L (21-32) 27 MMOL/L (21-32) Anion Gap 8 mmol/L (5-15) 8 mmol/L (5-15) Blood Urea Nitrogen 10 mg/dL (7-18) 10 mg/dL (7-18) Creatinine 1.4 MG/DL (0.55-1.30) H 1.4 MG/DL (0.55-1.30) H Estimat Glomerular Filtration Rate > 60 mL/min (>60) > 60 mL/min (>60) Glucose Level 185 MG/DL (74-106) H 146 MG/DL (74-106) H Calcium Level 9.2 MG/DL (8.5-10.1) 8.2 MG/DL (8.5-10.1) L POC Whole Blood Glucose Pending 147 MG/DL (74-106) H White Blood Count 8.5 K/UL (4.8-10.8) Red Blood Count 3.73 M/UL (4.70-6.10) L Hemoglobin 11.5 G/DL (14.2-18.0) L Hematocrit 34.4 % (42.0-52.0) L Mean Corpuscular Volume 92 FL (80-99) Mean Corpuscular Hemoglobin 30.8 PG (27.0-31.0) Mean Corpuscular Hemoglobin Concent 33.4 G/DL (32.0-36.0) Red Cell Distribution Width 13.0 % (11.6-14.8) Platelet Count 418 K/UL (150-450) Mean Platelet Volume 5.0 FL (6.5-10.1) L Neutrophils (%) (Auto) 71.1 % (45.0-75.0) Lymphocytes (%) (Auto) 17.8 % (20.0-45.0) L Monocytes (%) (Auto) 9.0 % (1.0-10.0) Eosinophils (%) (Auto) 2.0 % (0.0-3.0) Basophils (%) (Auto) 0.2 % (0.0-2.0) Uric Acid 2.3 MG/DL (2.6-7.2) L Phosphorus Level 3.1 MG/DL (2.5-4.9) Magnesium Level 1.9 MG/DL (1.8-2.4) Total Bilirubin 0.3 MG/DL (0.2-1.0) Aspartate Amino Transf (AST/SGOT) 29 U/L (15-37) Alanine Aminotransferase (ALT/SGPT) 26 U/L (12-78) Alkaline Phosphatase 84 U/L (46-116) C-Reactive Protein, Quantitative 7.5 mg/dL (0.00-0.90) H Total Protein 5.6 G/DL (6.4-8.2) L Albumin 2.2 G/DL (3.4-5.0) L Globulin 3.4 g/dL Albumin/Globulin Ratio 0.6 (1.0-2.7) L Test 07/31/20 06:07 07/31/20 11:41 POC Whole Blood Glucose 145 MG/DL (74-106) H Pending Current Medications Medications (Trade) Dose Ordered Sig/Chloe Route PRN Reason Start Time Stop Time Status Last Admin Dose Admin Acetaminophen (Tylenol) 650 mg Q4H PRN RECTAL TEMP and pain 07/25/20 22:15 08/24/20 22:14 07/27/20 12:07 Acetaminophen (Tylenol) 650 mg Q6H PRN ORAL for fever and mild pain 1-3 07/25/20 23:00 08/24/20 22:59 Amlodipine Besylate (Norvasc) 10 mg DAILY ORAL 07/29/20 22:00 08/29/20 21:59 07/30/20 08:50 Bisacodyl (Dulcolax) 10 mg HSPRN PRN RECTAL Constipation 07/25/20 22:15 10/23/20 22:14 Dextrose (Dextrose 50%) 25 ml Q30M PRN IV Hypoglycemia 07/26/20 14:30 10/24/20 14:29 Dextrose (Dextrose 50%) 50 ml Q30M PRN IV Hypoglycemia 07/26/20 14:30 10/24/20 14:29 Famotidine (Pepcid I.v.) 20 mg Q12HR IVP 07/26/20 09:00 08/25/20 08:59 07/31/20 09:10 Heparin Sodium (Porcine) (Heparin 5000 units/ml) 5,000 units EVERY 12 HOURS SUBQ 07/26/20 09:30 09/09/20 09:29 07/31/20 09:15 Insulin Aspart (NovoLOG) AC+HS SUBQ 07/30/20 06:30 10/24/20 17:59 07/31/20 11:44 Linezolid (Zyvox) 600 mg EVERY 12 HOURS ORAL 07/30/20 13:00 08/04/20 12:59 07/31/20 09:10 Lisinopril (PriniviL) 40 mg Q12HR ORAL 07/29/20 22:00 08/28/20 21:59 07/30/20 20:46 Lorazepam (Ativan 2mg/ml 1ml) 0.5 mg Q4H PRN IV For Anxiety 07/25/20 22:15 08/01/20 22:14 Morphine Sulfate (Morphine Sulfate) 2 mg Q4H PRN IVP moderate to severe pain 4-10 07/25/20 23:00 08/01/20 22:59 07/27/20 04:08 Morphine Sulfate (Morphine Sulfate) 4 mg Q4H PRN IVP Severe Pain (Pain Scale 7-10) 07/25/20 22:15 08/01/20 22:14 07/26/20 17:40 Ondansetron HCl (Zofran) 4 mg Q4H PRN IVP Nausea & Vomiting 07/25/20 23:00 08/24/20 22:59 Piperacillin Sod/ Tazobactam Sod 3.375 gm/Sodium Chloride 110 ml @ 27.5 mls/hr Q8H IVPB 07/26/20 00:00 08/02/20 00:00 07/31/20 09:10 Sodium Chloride 1,000 ml @ 100 mls/hr Q10H IV 07/28/20 13:00 08/27/20 12:59 07/31/20 09:16 Noy Alatorre M.D. Jul 31, 2020 13:53
--- NOTE | 2020-07-31 15:31 | NUR ---
INSURANCE CLINICALS FAXED TO [facility] Ref# [id number] # [phone] fax# [phone]
[2020-07-31 16:00] VITALS: BP 160/78
--- NOTE | 2020-07-31 16:51 | Internal Med Progress Note ---
Subjective Physician Name Richard Zafar Attending Physician Richard Zafar MD Current Medications Medications (Trade) Dose Ordered Sig/Chloe Route PRN Reason Start Time Stop Time Status Last Admin Dose Admin Acetaminophen (Tylenol) 650 mg Q4H PRN RECTAL TEMP and pain 07/25/20 22:15 08/24/20 22:14 07/27/20 12:07 Acetaminophen (Tylenol) 650 mg Q6H PRN ORAL for fever and mild pain 1-3 07/25/20 23:00 08/24/20 22:59 Amlodipine Besylate (Norvasc) 10 mg DAILY ORAL 07/29/20 22:00 08/29/20 21:59 07/30/20 08:50 Bisacodyl (Dulcolax) 10 mg HSPRN PRN RECTAL Constipation 07/25/20 22:15 10/23/20 22:14 Dextrose (Dextrose 50%) 25 ml Q30M PRN IV Hypoglycemia 07/26/20 14:30 10/24/20 14:29 Dextrose (Dextrose 50%) 50 ml Q30M PRN IV Hypoglycemia 07/26/20 14:30 10/24/20 14:29 Famotidine (Pepcid I.v.) 20 mg Q12HR IVP 07/26/20 09:00 08/25/20 08:59 07/31/20 09:10 Heparin Sodium (Porcine) (Heparin 5000 units/ml) 5,000 units EVERY 12 HOURS SUBQ 07/26/20 09:30 09/09/20 09:29 07/31/20 09:15 Insulin Aspart (NovoLOG) AC+HS SUBQ 07/30/20 06:30 10/24/20 17:59 07/31/20 11:44 Linezolid (Zyvox) 600 mg EVERY 12 HOURS ORAL 07/30/20 13:00 08/04/20 12:59 07/31/20 09:10 Lisinopril (PriniviL) 40 mg Q12HR ORAL 07/29/20 22:00 08/28/20 21:59 07/30/20 20:46 Lorazepam (Ativan 2mg/ml 1ml) 0.5 mg Q4H PRN IV For Anxiety 07/25/20 22:15 08/01/20 22:14 Morphine Sulfate (Morphine Sulfate) 2 mg Q4H PRN IVP moderate to severe pain 4-10 07/25/20 23:00 08/01/20 22:59 07/27/20 04:08 Morphine Sulfate (Morphine Sulfate) 4 mg Q4H PRN IVP Severe Pain (Pain Scale 7-10) 07/25/20 22:15 08/01/20 22:14 07/26/20 17:40 Ondansetron HCl (Zofran) 4 mg Q4H PRN IVP Nausea & Vomiting 07/25/20 23:00 08/24/20 22:59 Piperacillin Sod/ Tazobactam Sod 3.375 gm/Sodium Chloride 110 ml @ 27.5 mls/hr Q8H IVPB 07/26/20 00:00 08/02/20 00:00 07/31/20 15:48 Sodium Chloride 1,000 ml @ 100 mls/hr Q10H IV 07/28/20 13:00 08/27/20 12:59 07/31/20 09:16 Allergies: Coded Allergies: No Known Allergies (Unverified , 07/25/20) Subjective awake, alert, responsive, NAD Objective Last Vital Signs Date Time Temp Pulse Resp B/P (MAP) Pulse Ox O2 Delivery O2 Flow Rate FiO2 07/31/20 16:00 98.2 75 20 160/78 (105) 95 07/31/20 09:00 Room Air 07/28/20 15:38 2.0 Laboratory Tests Test 07/30/20 21:20 07/31/20 05:35 07/31/20 06:07 07/31/20 11:41 POC Whole Blood Glucose 147 MG/DL (74-106) H 145 MG/DL (74-106) H Pending White Blood Count 8.5 K/UL (4.8-10.8) Red Blood Count 3.73 M/UL (4.70-6.10) L Hemoglobin 11.5 G/DL (14.2-18.0) L Hematocrit 34.4 % (42.0-52.0) L Mean Corpuscular Volume 92 FL (80-99) Mean Corpuscular Hemoglobin 30.8 PG (27.0-31.0) Mean Corpuscular Hemoglobin Concent 33.4 G/DL (32.0-36.0) Red Cell Distribution Width 13.0 % (11.6-14.8) Platelet Count 418 K/UL (150-450) Mean Platelet Volume 5.0 FL (6.5-10.1) L Neutrophils (%) (Auto) 71.1 % (45.0-75.0) Lymphocytes (%) (Auto) 17.8 % (20.0-45.0) L Monocytes (%) (Auto) 9.0 % (1.0-10.0) Eosinophils (%) (Auto) 2.0 % (0.0-3.0) Basophils (%) (Auto) 0.2 % (0.0-2.0) Sodium Level 136 MMOL/L (136-145) Potassium Level 3.8 MMOL/L (3.5-5.1) Chloride Level 102 MMOL/L (98-107) Carbon Dioxide Level 27 MMOL/L (21-32) Anion Gap 8 mmol/L (5-15) Blood Urea Nitrogen 10 mg/dL (7-18) Creatinine 1.4 MG/DL (0.55-1.30) H Estimat Glomerular Filtration Rate > 60 mL/min (>60) Glucose Level 146 MG/DL (74-106) H Uric Acid 2.3 MG/DL (2.6-7.2) L Calcium Level 8.2 MG/DL (8.5-10.1) L Phosphorus Level 3.1 MG/DL (2.5-4.9) Magnesium Level 1.9 MG/DL (1.8-2.4) Total Bilirubin 0.3 MG/DL (0.2-1.0) Aspartate Amino Transf (AST/SGOT) 29 U/L (15-37) Alanine Aminotransferase (ALT/SGPT) 26 U/L (12-78) Alkaline Phosphatase 84 U/L (46-116) C-Reactive Protein, Quantitative 7.5 mg/dL (0.00-0.90) H Total Protein 5.6 G/DL (6.4-8.2) L Albumin 2.2 G/DL (3.4-5.0) L Globulin 3.4 g/dL Albumin/Globulin Ratio 0.6 (1.0-2.7) L Intake and Output 07/30/20 07/31/20 19:00 07:00 Intake Total 890 ml 1690.0 ml Output Total 300 ml 770 ml Balance 590 ml 920.0 ml Intake Oral 790 ml 480 ml IV Total 100 ml 1210.0 ml Output Urine Total 300 ml 750 ml Other 20 ml # Voids 4 4 # Bowel Movements 1 Objective GENERAL: The patient is awake and responsive, in no acute distress. HEAD AND NECK: Pupils are equal and reactive to light. Extraocular movements are intact. Neck was supple. No JVD. LUNGS: Good air entry. No wheezes or rales. HEART: S1, S2. Regular rhythm. No gallops. ABDOMEN: Soft, distended. Decreased bowel sounds. less Tenderness, No rebound tenderness. No fluid shift. EXTREMITIES: No cyanosis, clubbing, or edema. NEUROLOGIC: Cranial nerves II through XII grossly normal. Motor is 5/5 in all extremities. Gait intact. RECTAL/GENITOURINARY: Refused and deferred. PSYCHIATRIC: Mood and affect is intact. Assessment/Plan Assessment/Plan 1. Abdominal pain, 2. perforated appendix/abscess 3. Small bowel obstruction-resolved 4. Acute kidney injury. 5. Severe dehydration and prerenal azotemia. 6. Acute perforated appendicitis. 7. Appendicitis with abscess. PLAN: 1. Admit the patient to the surgical unit. 2. Dr. Vitale = surgical consultation. 3. Code status: Full Code. 4. DVT prophylaxis is heparin subcutaneous. 5. antibiotic = Zosyn and zyvox, Discharge on PO Augmentin 875/125mg bid for [address] Dandre Redman=gastroenterology consultation. 7. S/P CT guided drain placed 07/28/20 8. DC home today. Richard Zafar MD Jul 31, 2020 16:51
--- NOTE | 2020-07-31 18:55 | NUR ---
NURSE NOTES: Patient discharged as ordered. Stable. All discharge teaching given to patient by surgeon prior to discharge. Surgical site and drain assessed by surgeon prior to discharge. Uresil bag compressed and draining. All medication teaching given to patient by primary MD this morning. All discharge instructions reinforced by RN.Patient verbalized understanding. Patient has all belongings. Skin is c/d/i. No IV access. All questions and concerns addressed. Patient waiting for ride to pick him up.
--- NOTE | 2020-07-31 19:30 | NUR ---
NURSE NOTES: Patient's friend Christy arrived. Christy will drive patient home after patient gets dressed. All belongings accounted for.
--- NOTE | 2020-07-31 20:15 | NUR ---
NURSE NOTES: Pt left the facility with family member via Uber to home with stable conditions. Questions have been answered. Uresil inserted and site is clear. Pt is aware how to take care of and will see Md next week. ID band got removed.
--- NOTE | 2020-07-31 22:56 | General Progress Note ---
Subjective Allergies: Coded Allergies: No Known Allergies (Unverified , 07/25/20) Subjective Feels OK s/p IR drainage of abscess feels better (+) BM yesterday tolerating liquids Objective Last 24 Hour Vital Signs Date Time Temp Pulse Resp B/P (MAP) Pulse Ox O2 Delivery O2 Flow Rate FiO2 07/31/20 16:00 98.2 75 20 160/78 (105) 95 07/31/20 12:00 97.5 70 20 128/87 (101) 96 07/31/20 09:00 Room Air 07/31/20 08:00 98.2 77 20 98/62 (74) 96 07/31/20 04:00 98.2 77 20 155/77 (103) 96 07/31/20 00:00 98.0 65 20 151/80 (103) 99 Intake and Output 07/30/20 07/31/20 19:00 07:00 Intake Total 890 ml 1690.0 ml Output Total 300 ml 770 ml Balance 590 ml 920.0 ml Intake Oral 790 ml 480 ml IV Total 100 ml 1210.0 ml Output Urine Total 300 ml 750 ml Other 20 ml # Voids 4 4 # Bowel Movements 1 Laboratory Tests 07/31/20 05:35: White Blood Count 8.5, Red Blood Count 3.73L, Hemoglobin 11.5L, Hematocrit 34.4L , Mean Corpuscular Volume 92, Mean Corpuscular Hemoglobin 30.8, Mean Corpuscular Hemoglobin Concent 33.4, Red Cell Distribution Width 13.0, Platelet Count 418, Mean Platelet Volume 5.0L, Neutrophils (%) (Auto) 71.1, Lymphocytes (%) (Auto) 17.8L, Monocytes (%) (Auto) 9.0, Eosinophils (%) (Auto) 2.0, Basophils (%) (Auto) 0.2, Sodium Level 136, Potassium Level 3.8, Chloride Level 102, Carbon Dioxide Level 27, Anion Gap 8, Blood Urea Nitrogen 10, Creatinine 1.4H, Estimat Glomerular Filtration Rate > 60, Glucose Level 146H, Uric Acid 2.3L, Calcium Level 8.2L, Phosphorus Level 3.1, Magnesium Level 1.9, Total Bilirubin 0.3, Aspartate Amino Transf (AST/SGOT) 29, Alanine Aminotransferase (ALT/SGPT) 26, Alkaline Phosphatase 84, C-Reactive Protein, Quantitative 7.5H, Total Protein 5.6L, Albumin 2.2L, Globulin 3.4, Albumin/Globulin Ratio 0.6L 07/31/20 06:07: POC Whole Blood Glucose 145H 07/31/20 11:41: POC Whole Blood Glucose [Pending] 07/31/20 17:11: POC Whole Blood Glucose [Pending] Height (Feet): 5 Height (Inches): 11.00 Weight (Pounds): 201 Objective WDWN man NCAT supple CTA RR abd softer, (+) drain, less TTP no edema Assessment/Plan Assessment/Plan: Assessment - Perforated appy - multiple abd abscesses - Ileus - resolved - Azotemia - DM Recommendations - broad spectrum abx - agree with Zosyn - diet per surgery - IVF, follow Cr and lytes - SQ heparin - follow abscess drainage Dandre Redman MD Jul 31, 2020 22:56
--- NOTE | 2020-08-01 12:07 | NUR ---
INSURANCE CLINICALS/REVIEW/ DC INSTRUCTIONS () FAXED TO [facility] [phone] PH [phone]
--- NOTE | 2020-08-04 07:57 | Discharge Summary ---
Discharge Summary Discharge Summary _ DATE OF ADMISSION: 07/25/2020 DATE OF DISCHARGE: 07/31/2020 DISCHARGED BY: Dr. Zafar REASON FOR ADMISSION: 59 years old male with past medical history significant for Sampson's palsy with tinnitus, presented initially to [facility] ER complaining of abdominal pain along with abdominal distention for the last 6 days. Pain reported as 7 out of 10 with multiply nonbloody emesis episodes. Symptoms progressively worsened over the last several days. Patient was unable to tolerate oral intake. No shortness of breath or chest pain . No fall or trauma. No fever no chills. CT scan of the abdomen and pelvis revealed bowel obstruction and fluid c ollection, nonvisualization of the appendix. Consideration was given for small bowel obstruction versus perforated appendicitis with abscess collection. NG tube initially was placed with minimal output . Patient subsequently was transferred to [facility] due to insurance reasons. CONSULTANTS: pulmonary/critical care Dr. Keith ID specialist Dr. Alatorre GI specialist dr. Redman custom feed mill operator Dr. Patel surgery Dr. Vitale [facility] COURSE: Patient admitted to medical surgical floor . Patient was kept n.p.o. , and hydrated with IV hydration . Patient was started on empiric antibiotics. Bowel rest provided with NG tube to intermittent suction Pain management was addressed. Surgeon seen and evaluated patient . Follow-up abdominal x-ray revealed diffusely dilated loops of small bowel bowels, measuring up to 5.3 cm concerning for high-grade small bowel obstruction. No free intraperitoneal air. Chest x-ray revealed no focal consolidation, pleural effusion or pneumothorax. Echocardiogram revealed preserved ejection fraction 60 to 65%. No evidence of wall motion abnormality. Right ventricular systolic pressure of 38 consistent with a mild pulmonary hypertension. Follow-up abdominal x-ray revealed slightly improved dilated left upper quadrant small bowel loops. Patient undergone drainage of periappendiceal abscess by interventional radiology, yielding 50 mL of pus. Percutaneous drain was placed during the procedure. Culture of the drain fluid revealed strep and E. coli. Antibiotic regimen optimized as per ID specialist recommendation. Urine culture was negative. COVID-19 was negative Patient presented on admission with creatinine 1.7. Renal parameters and electrolytes were closely monitored, electrolytes corrected as needed, nephrotoxins were avoided. Prior to discharge creatinine down to 1.4. According to custom feed mill operator patient had acute on chronic renal failure due to severe dehydration. NG output was decreasing. Subsequently NG tube was discontinued. Patient slowly started on diet as tolerated. DVT and GI prophylaxis provided. Abdominal exam improved. Blood sugar was managed with sliding scale of insulin. Yesterday blood sugars were high. Hemoglobin A1c 8.9 clearly not at goal. Diabetic teaching provided. Blood sugar improved with current management. Diabetic diet provided as patient started to eat. Patient was advised on close follow-up with primary care provider to bring hemoglobin A1c under control. Supportive care provided. Patient clinically stabilized and was ready for discharge home. Upon discharge antibiotic changed to oral as per ID specialist recommendation to complete the course. Patient to follow-up with surgeon as scheduled for drain removal and consideration for interval appendectomy. FINAL DIAGNOSES: Small bowel obstruction - resolved Acute perforated appendicitis with appendiceal abscess Status post CT guided drainage of the abscess Acute kidney injury on chronic renal failure Severe dehydration DM DISCHARGE MEDICATIONS: See Medication Reconciliation list. DISCHARGE INSTRUCTIONS: Patient was discharged home. Follow-up with a surgeon for drain removal and consideration for interval appendectomy I have been assigned to dictate discharge summary for this account. I was not involved in the patient's management. Corinne Negron NP Aug 04, 2020 07:57
--- NOTE | 2020-08-04 18:11 | NUR ---
INSURANCE DC SUMMARY FAXED TO [facility] ph# [phone] fax# [phone]
== END 2020-07-31 20:15 | disposition home or self-care (01) | DRG 372 ==
LOC: 3E 20:18
PROC: 0D9J30Z Drainage of Appendix with Drainage Device, Percutaneous Approach (ICD-10-PCS; principal; 2020-07-28)
DX: K35.33 Acute appendicitis with perforation, localized peritonitis, and gangrene, with abscess (principal); K56.609 Unspecified intestinal obstruction, unspecified as to partial versus complete obstruction; N17.9 Acute kidney failure, unspecified; E87.1 Hypo-osmolality and hyponatremia; E86.0 Dehydration; E11.9 Type 2 diabetes mellitus without complications; G51.0 Bell's palsy; H93.19 Tinnitus, unspecified ear; N18.9 Chronic kidney disease, unspecified
CPT/HCPCS: 36415; 71045; 74018; 74177; 75989; 80048; 80053; 80061; 81001; 82150; 82607; 82728; 82746; 82962; 83036; 83540; 83550; 83605; 83690; 83735; 83880; 84100; 84550; 85007; 85025; 85610; 85651; 85730; 86140; 87070; 87086; 87181; 87205; 93005; 93306; J1815; J7030; U0002

== ENCOUNTER 2020-09-08 08:48 | Day surgery (SDC) | payer OTHER ==
[~2020-09-08] VITALS: Ht 180.3 cm; Wt 89.4 kg
[2020-09-08] VITALS (9 sets, daily range): BP systolic 111–138; BP diastolic 71–82
[~2020-09-08 08:48] MED LIST: AMLODIPINE BESY10 MG ORAL; LISINOPRIL40 MG ORAL; TRESIBA FL100 UNIT/1 SQ
[2020-09-08] MEDS ORDERED: LR 1000ml ONE (11:00)
[2020-09-08] MEDS ORDERED: Lidocaine 1% MPF 10mg/ml 5ml ONE (11:00)
--- NOTE | 2020-09-08 11:12 | Pre-Procedure Note/Attestation ---
Pre-Procedure Note/Attestation Complete Prior to Procedure Planned Procedure: not applicable Procedure Narrative: colonoscopy Indications for Procedure Pre-Operative Diagnosis: screening Attestation I attest that I discussed the nature of the procedure; its benefits; risks and complications; and alternatives (and the risks and benefits of such alternatives), prior to the procedure, with the patient (or the patient's legal inside technical sales representative). I attest that, if there was a reasonable possibility of needing a blood tra nsfusion, the patient (or the patient's legal inside technical sales representative) was given the [facility] standardized written summary, pursuant to the [place] Blood Safety Act ([place] Health and Safety Code # 1645, as amended). I attest that I re-evaluated the patient just prior to the surgery and that there has been no change in the patient's H&P, except as documented below: Herman Gutierrez MD Sep 08, 2020 11:12
--- NOTE | 2020-09-08 11:13 | Short Stay Surgery H&P ---
History of Present Illness History of Present Illness Chief Complaint see office note HPI Hero Brewer is a 59 year old male who was admitted on for Colon Screening Patient History Allergies: Coded Allergies: No Known Allergies (Unverified , 07/25/20) Medication History Scheduled Amlodipine Besylate* (Amlodipine Besylate*), 10 MG ORAL DAILY, (Reported) Insulin Degludec (Tresiba Flextouch U-100), 12 UNITS SQ QHS, (Reported) Discontinued Medications Lisinopril* (Lisinopril*), 80 MG ORAL DAILY, (Reported) Discontinued Reason: MD discontinued med Physical Exam Vital Signs Last Vital Signs Date Time Temp Pulse Resp B/P (MAP) Pulse Ox O2 Delivery O2 Flow Rate FiO2 09/08/20 09:40 Room Air 09/08/20 09:19 97.8 76 18 138/77 99 Labs Laboratory Tests Test 09/08/20 09:52 POC Whole Blood Glucose 169 MG/DL (74-106) H Plan Attestation Are the patient's medical conditions optimized for surgery? Herman Gutierrez MD Sep 08, 2020 11:13
[2020-09-08] MEDS ORDERED: LR 1000ml 1,000 ML IVLG SCH (11:15)
[2020-09-08] MEDS ORDERED: DiphenhydrAMINE 50mg/ml Inj IVP PRN (11:15)
[2020-09-08] MEDS ORDERED: fentaNYL 100 mcg/2 mL IV PRN (11:15)
[2020-09-08] MEDS ORDERED: Midazolam 2mg/2ml Inj IVP PRN (11:15)
[2020-09-08] MEDS ORDERED: Atropine Inj 1mg/10ml Syr IVP PRN (11:15)
--- NOTE | 2020-09-08 11:19 | Anethesia Preoperative Eval ---
Anesthesia Pre-op PMH/ROS General Date of Evaluation: Sep 08, 2020 Time of Evaluation: 11:06 Anesthesiologist: rahel ASA Score: ASA 3 Mallampati Score Class I : Soft palate, uvula, fauces, pillars visible Class II: Soft palate, uvula, fauces visible Class III: Soft palate, base of uvula visible Class IV: Only hard plate visible Mallampati Classification: Class II Surgeon: aracelis Diagnosis: colon screening Surgical Procedure: colonoscopy Anesthesia History: none Social History: smoking - nonsmoker Family History: no anesthesia problems Allergies: Coded Allergies: No Known Allergies (Unverified , 07/25/20) Medications: see eMAR Patient NPO?: Yes Past Medical History Cardiovascular: Reports: HTN Endocrine: Reports: DM PSxH Narrative: dental implants, appendectomy, bowel surgery Anesthesia Pre-op Phys. Exam Physician Exam Last Vital Signs Date Time Temp Pulse Resp B/P (MAP) Pulse Ox O2 Delivery O2 Flow Rate FiO2 09/08/20 09:40 Room Air 09/08/20 09:19 97.8 76 18 138/77 99 Constitutional: NAD Neurologic: CN 2-12 intact Cardiovascular: RRR Respiratory: CTA Gastrointestinal: S/NT/ND Airway Exam Mallampati Score: Class II MO: full Neck: flexible TMD: 2fb ROM: full Anesthesia Pre-op A/P Labs Chemistry Test 09/08/20 09:52 POC Whole Blood Glucose 169 MG/DL (74-106) H Studies Pre-op Studies: EKG - nsr, lad, incomplete rbbb Risk Assessment & Plan Assessment: asa3 Plan: mac Status Change Before Surgery: No Pre-Antibiotics Drug: Abi Crowell MD Sep 08, 2020 11:19
--- NOTE | 2020-09-08 11:51 | Endoscopy Procedure Note ---
Endoscopy Procedure Note General Indication for Procedure: screening Procedures Performed: colonoscopy Operative Findings/Diagnosis: hemorrhoids Specimen: none Pt Tolerated Procedure Well: Yes Estimated Blood Loss: none Anesthesia Anesthesiologist: debbi Anesthesia: MAC Inserted Devices Implant(s) used?: No Quality Quality of Bowel Preparation: Good Did scope reach the cecum?: Yes Was there any complications?: No GI Core Measures 50 yrs or older w/o bx or poly: No 10yrs. F/U recommended: Yes If not recommended, why?: Above average risk 18 years or older w/prev. colo: No Herman Gutierrez MD Sep 08, 2020 11:51
--- NOTE | 2020-09-08 13:03 | Immediate Post-Op Evaluation ---
Immediate Post-Op Evalulation Immediate Post-Op Evalulation Procedure: colonoscopy Date of Evaluation: Sep 08, 2020 Time of Evaluation: 11:50 IV Fluids: 550ml lr Blood Products: none Estimated Blood Loss: negligible Blood Pressure Systolic: 111 Blood Pressure Diastolic: 72 Pulse Rate: 65 Respiratory Rate: 18 O2 Sat by Pulse Oximetry: 99 Temperature (Fahrenheit): 97.2 Pain Score (1-10): 0 Nausea: No Vomiting: No Complications none Patient Status: awake, reacts, patent Hydration Status: adequate Drug: Abi Crowell MD Sep 08, 2020 13:03
--- NOTE | 2020-09-08 13:04 | 48 Hour Post Anesthesia Eval ---
Post Anesthesia Evaluation Procedure: colonoscopy Date of Evaluation: Sep 08, 2020 Time of Evaluation: 11:52 Blood Pressure Systolic: 116 0: 76 Pulse Rate: 64 Respiratory Rate: 18 Temperature (Fahrenheit): 97.2 O2 Sat by Pulse Oximetry: 99 Airway: patent Nausea: No Vomiting: No Pain Intensity: 0 Hydration Status: adequate Cardiopulmonary Status: stable Mental Status/LOC: patient returned to baseline Post-Anesthesia Complications: none Follow-up care needed: N/A Abi Palmer MD Sep 08, 2020 13:04
--- NOTE | 2020-09-08 16:14 | Procedure Note ---
DATE OF PROCEDURE: 09/08/2020 SURGEON: Herman Gutierrez MD PROCEDURE: Colonoscopy. ANESTHESIA: Per Dr. Connor. INSTRUMENT: Olympus adult flexible colonoscope. INDICATION: Screening colonoscopy. REASON FOR PROCEDURE: The procedure, risks, benefits, and possible consequences, including hemorrhage, aspiration, perforation and infection, and alternative treatments, were explained to the patient/legal guardian by Dr. Herman Gutierrez and the patient/legal guardian understood and accepted these risks. DESCRIPTION OF PROCEDURE: After informed consent was obtained and patient was adequately sedated, first rectal examination was performed, which was positive for internal hemorrhoids. Then, the scope was advanced from the rectum into the cecum then subcutaneous terminal ileum. Quality of prep was good. Patient had normal colonoscopy examination. No obvious mass, polyp, diverticulosis, or any other pathology was seen. Retroflexion of rectum was performed, which showed evidence of internal hemorrhoids. Patient tolerated the procedure very well without any complication. SUMMARY OF FINDINGS: 1. Normal colonoscopy examination up to the terminal ileum without any obvious mass, polyp, or diverticulitis. 2. Internal hemorrhoids. RECOMMENDATIONS: Repeat colonoscopy in 5 years. Herman Gutierrez M.D. DR: [facility] JOB#: [id number] CC:
== END 2020-09-08 13:25 | disposition home or self-care (01) ==
LOC: GAS 08:48
DX: Z12.11 Encounter for screening for malignant neoplasm of colon (principal); K64.8 Other hemorrhoids; I10 Essential (primary) hypertension; E11.9 Type 2 diabetes mellitus without complications; Z90.89 Acquired absence of other organs; I45.10 Unspecified right bundle-branch block
CPT/HCPCS: 45378; 82962; 93005; 94003; J2704; J7120; U0002; 94150